=== PATIENT | female | born 1935 | race Caucasian/White ===

== ENCOUNTER → 2016-04-09 | Outpatient (CLI) | payer OTHER, BC ==
[~2016-04-09] MED LIST: ACET325T96 PO; AMLO10TA2 PO; AMOX875T PO; ASPCH81X PO; ATOR-24 PO; BISA10SU38 PR; CALC0.2510 PO; CEPH500C PO; CLC100X PO; CLON0.252 SL; DABI150C PO; DOCU100C31 PO; ESCI10TA17 PO; GFNSR600 PO; MOML PO; NTRGSL/4 UT; NUTR-977 PO; ONDA4TAB7 SL; POLY335025 PO; POTA20TA16 PO; PRLSR20 PO; RIVA1.5T PO; SENN-61 PO; SENN8.6T7 PO; SULF800T23 PO
[2016-04-09 18:11] LABS: URINE APPEARANCE CLOUDY (CLEAR); URINE BILIRUBIN NEG (NEG); URINE COLOR YELLOW; URINE EPITHELIAL CELL AUTO >30 /lpf (0-5); URINE NITRITE NEG (NEG); URINE SPECIFIC GRAVITY 1.003 (1.000-1.030); UROBILINOGEN NEG (NEG)
[2016-04-09 18:19] LABS: MANUAL MICROSCOPIC REQUIRED? NO; REVIEW REQ? YES
--- NOTE | 2016-04-13 12:26 | CODING QUERY NO DIAGNOSIS ---
TREATMENT RENDERED WITHOUT A DIAGNOSIS To promote full compliance with coding requirements relating to patient care, physician participation is requested in all cases of res counselor uncertainty. Please assist us with providing a diagnosis/symptom for the test(s) below: A diagnosis/symptom was not documented on your Order. A valid diagnosis/symptom is required to bill all insurances. Please remember that we are unable to code a diagnosis of rule out, probable, possible, questionable, or suspected. Tests that require a diagnosis: DOS 04/09/16 * Urine Culture DIAGNOSIS: Provider Signature: Date: Thank you Abigail Zamora [facility] Information Management Once completed, please kindly fax back to [phone] For questions please call [phone]
== END ==
LOC: C.LABOUTLO 16:12
PROVIDERS: ATTEND Family Medicine
DX: Z76.89 Persons encountering health services in other specified circumstances (principal)

== ENCOUNTER 2016-04-10 11:59 | Emergency (ER) | payer OTHER, BC ==
[~2016-04-10] VITALS: Ht 157.5 cm; Wt 54.0 kg
[~2016-04-10 11:59] MED LIST changes: -ACET325T96 PO; -AMLO10TA2 PO; -ASPCH81X PO; -ATOR-24 PO; -BISA10SU38 PR; -CALC0.2510 PO; -CEPH500C PO; -CLON0.252 SL; -DOCU100C31 PO; -ESCI10TA17 PO; -GFNSR600 PO; -MOML PO; -NTRGSL/4 UT; -NUTR-977 PO; -ONDA4TAB7 SL; -POLY335025 PO; -POTA20TA16 PO; -PRLSR20 PO; -RIVA1.5T PO; -SENN-61 PO; -SENN8.6T7 PO; -SULF800T23 PO
[2016-04-10 12:04] VITALS: TEMP 36.7; Ht 157.5 cm; Wt 54.0 kg
--- NOTE | 2016-04-10 12:15 | EMERGENCY ROOM VISIT NOTE ---
History Report prepared by Debbie: Beltran Peter Under the Supervision of: Dr. Hieu Lopez M.D. First contact with patient: 12:08 Chief Complaint: FALL Stated Complaint: FALL/HEMATOMA TO HEAD History of Present Illness The patient is a 80 year old female who presents to the Emergency Room with complaints of an acute fall that occurred earlier this morning. The patient notes that there is now a bump on her head but she does not have any pain. The patient did not lose consciousness. The patient does not have any chest or abdominal pain. She has never been told she has Alzheimer's or dementia. The patient is on Pradaxa. The patient resides at [facility]. The patient was in the ED yesterday for syncope and incontinence. Source of History: patient Onset: this morning Position: other (global) Quality: other (fall) Timing: other (acute) Associated Symptoms: No LOC, No abdominal pain, No chest pain, No headache Review of Systems All systems have been listed, reviewed, and are negative other than those previously mentioned. Please see Additional Medical History Sheet. Past Medical & Surgical Medical Problems: (1) Altered mental status (2) Atrial Fibrillation with rapid ventricular rate (3) Atrial fibrillation with RVR (4) Atrial fibrillation with RVR (5) Chronic ischemic heart disease (6) Chronic kidney disease stage 3 (7) Chronic otitis externa (8) Dehydration (9) Dehydration (10) Dyslipidemia (11) Fall (12) Gastroenteritis (13) Humerus head fracture (14) Hypomagnesemia (15) Local infection of wound (16) Mental status change (17) Subjective tinnitus (18) UTI (urinary tract infection) (19) Vertigo (20) Vomiting Family History Heart disease Hypertension Stroke Social History Smoking Status: Former Smoker Alcohol Use: none Drug Use: none Marital Status: Housing Status: [facility] Occupation Status: retired Current/Historical Medications Scheduled Amlodipine Besylate (Norvasc), 10 MG PO DAILY Amoxicillin & Pot Clavulanate (Augmentin 875-125 mg), 875 MG PO BID Aspirin (Aspirin Chewable), 81 MG PO BID Atorvastatin (Lipitor), 40 MG PO QD@1700 Calcitriol (Rocaltrol Cap), 0.25 MCG PO 3XWK Dabigatran Etexilate Mesylate (Pradaxa), 150 MG PO BID Docusate Sodium (Colace), 100 MG PO BID Enteral Nutrition Formula (Ensure Plus Vanilla), 1 CAN GJT TID Escitalopram (Lexapro), 10 MG PO DAILY Omeprazole (Prilosec), 20 MG PO DAILY Potassium Ext Rel (Klor-Con), 20 MEQ PO DAILY Senna (Senokot), 1 TAB PO HS Scheduled PRN Acetaminophen Tab (Tylenol), 650 MG PO Q4H PRN for Mild Pain Bisacodyl (Dulcolax), 1 SUPP TX UD PRN for Constipation Clonazepam (Clonazepam Odt), 0.25 MG SL HS PRN for Insomnia Magnesium Hydroxide (Milk Of Magnesia), 30 ML PO UD PRN for Constipation Nitroglycerin (Nitrostat), 0.4 MG UT UD PRN for Chest Pain Polyethylene Glycol 3350 (Miralax), 17 GM PO DAILY PRN for Constipation Sennosides-Docusate Sodium (Senokot S), 1 TAB PO Q24H PRN for Constipation Allergies Coded Allergies: No Known Allergies (Verified , ., 04/10/16) Physical Exam Vital Signs Date Time Temp Pulse Resp B/P Pulse Ox O2 Delivery O2 Flow Rate FiO2 04/10/16 13:41 58 17 175/74 91 04/10/16 12:04 36.7 60 167/64 96 Room Air Physical Exam GENERAL: Patient awake, alert, oriented x 3. Patient follows commands. Patient does not appear toxic. Patient is adequately hydrated and well- nourished. SKIN: No erythema, pallor, cyanosis or rash HEENT: Hematoma above the left eye, no Reza's or Raccoon signs, pupils equal, reactive to light and accommodation. Ears normal. Oral cavity and posterior pharynx appear normal. Neck: Supple, nontender without stepoff, without adenopathy, no neck vein distention. LUNGS: Clear to auscultation. No wheezes, no rales, no rhonchi. HEART: There is a 2/6 systolic murmur. ABDOMEN: Soft, nontender. EXTREMITIES: No signs of acute trauma. NEUROLOGIC: Patient is disoriented x 3 but answers most questions appropriately. Awake, alert. No neurological deficits. Medical Decision & Procedures ER Provider Diagnostic Interpretation: CT results are interpretations by the radiologist and per my review. CT HEAD WITHOUT CONTRAST (CT) CLINICAL HISTORY: Head pain status post head trauma COMPARISON STUDY: 04/09/2016 TECHNIQUE: Axial CT of the brain is performed from the vertex to the skull base. IV contrast was not administered for this examination. CT DOSE: 537.48 mGy.cm FINDINGS: No intra or extra-axial mass lesions are visualized. There is no CT evidence of acute cortical infarction. There is no evidence of midline shift. There is no acute hemorrhage. No calvarial fractures are visualized. There are patchy white matter hypodensities likely on a small vessel basis. There is an old left occipital lobe infarct. There are old cerebellar infarcts. There is left frontal scalp edema There is no evidence of pathologic ventricular dilatation. 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 No acute intracranial findings. Electronically signed by: Ace Mccormack M.D. 04/10/2016 1:12 PM Dictated Date/Time: 04/10/2016 1:08 PM ED Course 1209: Past medical records reviewed. The patient was evaluated in room C11b. A complete history and physical examination was performed. 1343: Spoke with the patient's daughter over the phone. I explained the CT findings. The patient will return to [facility]. 1350: Reevaluated the patient. I discussed today's findings with her and her daughter over the phone. They verbalized agreement of the treatment plan. She was discharged home. Medical Decision I considered multiple diagnoses including intracranial bleeding, hematoma, contusion, fall. Patient fell today and struck her head resulting in a hematoma above her left eye. The patient had no apparent loss of consciousness. She does have a history of dementia the patient was seen here yesterday. Multiple tests and imaging were performed then. The patient is on Pradaxa and therefore required a CT of her head which was felt to be normal in that there was no signs of bleed. No additional testing was performed today. I believe the patient is safe to return home. I discussed findings with the patient's daughter over the phone. Impression Primary Impression: Closed head injury Scribe Attestation The scribe's documentation has been prepared under my direction and personally reviewed by me in its entirety. I confirm that the note above accurately reflects all work, treatment, procedures, and medical decision making performed by me. Departure Information Dispostion Home / Self-Care Referrals [facility] (PCP) Forms HOME CARE DOCUMENTATION FORM, IMPORTANT VISIT INFORMATION Patient Instructions My [facility] Additional Instructions Continue all of your current medications as prescribed. Tylenol as needed for headache. Problem Qualifiers Primary Impression: Closed head injury Encounter type: initial encounter Qualified Codes: S09.90XA - Unspecified injury of head, initial encounter
--- NOTE | 2016-04-10 13:14 | DIAGNOSTIC IMAGING REPORT ---
CT HEAD WITHOUT CONTRAST (CT) CLINICAL HISTORY: Head pain status post head trauma COMPARISON STUDY: 04/09/2016 TECHNIQUE: Axial CT of the brain is performed from the vertex to the skull base. IV contrast was not administered for this examination. CT DOSE: 537.48 mGy.cm FINDINGS: No intra or extra-axial mass lesions are visualized. There is no CT evidence of acute cortical infarction. There is no evidence of midline shift. There is no acute hemorrhage. No calvarial fractures are visualized. There are patchy white matter hypodensities likely on a small vessel basis. There is an old left occipital lobe infarct. There are old cerebellar infarcts. There is left frontal scalp edema There is no evidence of pathologic ventricular dilatation. 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 No acute intracranial findings. Electronically signed by: Ace Mccormack M.D. 04/10/2016 1:12 PM Dictated Date/Time: 04/10/2016 1:08 PM
[2016-04-10 19:22] VITALS: BP 171/100; PULSE 62; O2SAT 95
[2016-09-19] MEDS ORDERED: BISA10SU38 PR (12:42)
[2016-09-19] MEDS ORDERED: POLY335025 PO (12:42)
[2016-09-19] MEDS ORDERED: SENN8.6T7 PO (12:42)
[2016-09-19] MEDS ORDERED: ATOR-24 PO (12:42)
[2016-09-19] MEDS ORDERED: ACET325T96 PO (12:42)
[2016-09-19] MEDS ORDERED: MOML PO (12:42)
[2016-09-19] MEDS ORDERED: CALC0.2510 PO (13:22)
[2016-09-19] MEDS ORDERED: ASPCH81X PO (13:27)
[2016-09-19] MEDS ORDERED: AMLO10TA2 PO (13:28)
[2016-09-19] MEDS ORDERED: CLON0.252 SL (13:31)
[2016-09-19] MEDS ORDERED: POTA20TA16 PO (13:33)
[2016-09-19] MEDS ORDERED: NTRGSL/4 UT (13:33)
== END 2016-04-10 19:23 | disposition home or self-care (01) ==
LOC: EDBD 11:59 → C.EDC 11:59
DX: S09.8XXA Other specified injuries of head, initial encounter (principal); R22.0 Localized swelling, mass and lump, head; W19.XXXA Unspecified fall, initial encounter; I48.91 Unspecified atrial fibrillation; N18.3 Chronic kidney disease, stage 3 (moderate); E78.5 Hyperlipidemia, unspecified; Z79.02 Long term (current) use of antithrombotics/antiplatelets; Z79.899 Other long term (current) drug therapy

== ENCOUNTER → 2016-05-07 | Outpatient (CLI) | payer OTHER, BC ==
[~2016-05-07] MED LIST changes: +ACET325T96 PO; +AMLO10TA2 PO; -AMOX875T PO; +ASPCH81X PO; +ATOR-24 PO; +BISA10SU38 PR; +CALC0.2510 PO; +CEPH500C PO; +CLON0.252 SL; +DOCU100C31 PO; +ESCI10TA17 PO; +GFNSR600 PO; +MOML PO; +NTRGSL/4 UT; +NUTR-977 PO; +POLY335025 PO; +POTA20TA16 PO; +PRLSR20 PO; +SENN-61 PO; +SENN8.6T7 PO
[2016-05-07 14:45] LABS: URINE APPEARANCE CLOUDY (CLEAR); URINE BILIRUBIN NEG (NEG); URINE COLOR YELLOW; URINE NITRITE POS (NEG); URINE SPECIFIC GRAVITY 1.012 (1.000-1.030); UROBILINOGEN NEG (NEG)
[2016-05-07 14:52] LABS: MANUAL MICROSCOPIC REQUIRED? NO; REVIEW REQ? NO
--- NOTE | 2016-05-14 07:22 | CODING QUERY NO DIAGNOSIS ---
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 Please assist us with providing a diagnosis/symptom for the test(s) below: A diagnosis/symptom was not documented on your Order. A valid diagnosis/symptom is required to bill all insurances. Please remember that we are unable to code a diagnosis of rule out, probable, possible, questionable, or suspected. DOS: 05/07/16 Tests that require a diagnosis: * UA CLEAN CATCH DIAGNOSIS: * URINE CULTURE CLEAN DIAGNOSIS: Provider Signature: Date: Thank you Guerline [facility] Health Information Management Once completed, please kindly fax back to [phone] For questions please call [phone]
== END ==
LOC: C.LABOUTLO 14:18
PROVIDERS: ATTEND Family Medicine
DX: R30.0 Dysuria (principal)

== ENCOUNTER → 2016-06-10 | Outpatient (CLI) | payer OTHER, BC ==
[2016-06-10 19:43] LABS: URINE APPEARANCE TURBID (CLEAR); URINE BILIRUBIN NEG (NEG); URINE COLOR YELLOW; URINE EPITHELIAL CELL AUTO >30 /lpf (0-5); URINE NITRITE NEG (NEG); URINE PH 6.5 (4.5-7.5); URINE SPECIFIC GRAVITY 1.012 (1.000-1.030); UROBILINOGEN NEG (NEG)
[2016-06-10 19:44] LABS: MANUAL MICROSCOPIC REQUIRED? NO; REVIEW REQ? YES
== END | disposition home or self-care (01) ==
LOC: C.LABOUTLO 10:32
PROVIDERS: ATTEND Family Medicine
DX: Z00.00 Encounter for general adult medical examination without abnormal findings (principal)

== ENCOUNTER 2016-09-19 18:15 | Emergency (ER) | payer OTHER, BC ==
[~2016-09-19] VITALS: Ht 157.5 cm; Wt 61.3 kg
[~2016-09-19 18:15] MED LIST changes: -CEPH500C PO; -DOCU100C31 PO; -ESCI10TA17 PO; -GFNSR600 PO; -NUTR-977 PO; -PRLSR20 PO; -SENN-61 PO
[2016-09-19 18:20] VITALS: TEMP 36.5; Ht 157.5 cm; Wt 61.3 kg
[2016-09-19] MEDS ORDERED: ACETAMINOPHEN 500 MG TAB PO STA (18:22)
--- NOTE | 2016-09-19 18:54 | DIAGNOSTIC IMAGING REPORT ---
HEAD CT NONCONTRAST CT DOSE: 601.98 mGy.cm HISTORY: Trauma fall TECHNIQUE: Multiaxial CT images of the head were performed without the use of intravenous contrast. Comparison: 04/10/2016 Findings: Old cerebellar as well as left occipital infarct. Considerable chronic small vessel change. Mild compensatory prominence of the ventricular system. No acute intracranial abnormality. No midline shift. The calvarium and skull base are intact. The ventricles and sulci are within normal limits. There is no mass, hematoma, midline shift, or acute infarct. Impression: Chronic and age-related change. No acute process. Electronically signed by: Francis Cedeno M.D. 09/19/2016 6:53 PM Dictated Date/Time: 09/19/2016 6:52 PM
--- NOTE | 2016-09-19 19:14 | EMERGENCY ROOM VISIT NOTE ---
History Report prepared by Debbie: Beltran Peter Under the Supervision of: Dr. Mathew Shanks D.O. First contact with patient: 18:17 Stated Complaint: FALL/ HEAD PAIN / [facility] History of Present Illness The patient is a 80 year old female with baseline dementia who presents to the Emergency Room after an acute fall that occurred just prior to arrival. Per EMS , the patient fell forward from a chair and hit the front of her head on the ground. The patient however states that she fell from standing up. The patient currently complains of 7/10 pain. She does not have any other complaints. She denies blood thinner use. The patient resides at [facility]. Source of History: patient, EMS Onset: just prior to arrival Position: other (global) Quality: other (fall) Timing: other (acute) Associated Symptoms: + headache Review of Systems See HPI for pertinent positives & negatives. A total of 10 systems reviewed and were otherwise negative. Past Medical & Surgical Medical Problems: (1) Altered mental status (2) Atrial Fibrillation with rapid ventricular rate (3) Atrial fibrillation with RVR (4) Atrial fibrillation with RVR (5) Chronic ischemic heart disease (6) Chronic kidney disease stage 3 (7) Chronic otitis externa (8) Dehydration (9) Dehydration (10) Dyslipidemia (11) Fall (12) Gastroenteritis (13) Humerus head fracture (14) Hypomagnesemia (15) Local infection of wound (16) Mental status change (17) Subjective tinnitus (18) UTI (urinary tract infection) (19) Vertigo (20) Vomiting Family History Heart disease Hypertension Stroke Social History Smoking Status: Unknown if Ever Smoked Alcohol Use: none Drug Use: none Marital Status: Housing Status: long term Occupation Status: retired Current/Historical Medications Scheduled Amlodipine Besylate (Norvasc), 10 MG PO DAILY Aspirin (Aspirin Chewable), 81 MG PO BID Atorvastatin (Lipitor), 40 MG PO QD@1700 Calcitriol (Rocaltrol Cap), 0.25 MCG PO 3XWK Dabigatran Etexilate Mesylate (Pradaxa), 150 MG PO BID Docusate Sodium (Colace), 100 MG PO BID Enteral Nutrition Formula (Ensure Plus Vanilla), 1 CAN GJT TID Escitalopram (Lexapro), 10 MG PO DAILY Omeprazole (Prilosec), 20 MG PO DAILY Potassium Ext Rel (Klor-Con), 20 MEQ PO DAILY Senna (Senokot), 1 TAB PO HS Scheduled PRN Acetaminophen Tab (Tylenol), 650 MG PO Q4H PRN for Mild Pain Bisacodyl (Dulcolax), 1 SUPP MD UD PRN for Constipation Clonazepam (Clonazepam Odt), 0.25 MG SL HS PRN for Insomnia Magnesium Hydroxide (Milk Of Magnesia), 30 ML PO UD PRN for Constipation Nitroglycerin (Nitrostat), 0.4 MG UT UD PRN for Chest Pain Polyethylene Glycol 3350 (Miralax), 17 GM PO DAILY PRN for Constipation Sennosides-Docusate Sodium (Senokot S), 1 TAB PO Q24H PRN for Constipation Allergies Coded Allergies: No Known Allergies (Verified , ., 04/10/16) Physical Exam Vital Signs Date Time Temp Pulse Resp B/P (MAP) Pulse Ox O2 Delivery O2 Flow Rate FiO2 09/19/16 18:20 18 98 09/19/16 18:20 36.5 65 18 145/67 98 Room Air Physical Exam CONSTITUTIONAL/VITAL SIGNS: Reviewed / noted above. GENERAL: Non-toxic in appearance. INTEGUMENTARY: Warm, dry, and [place]. HEAD: Small contusion to the right supraorbital area. EYES: without scleral icterus or trauma. ENT/OROPHARYNX: clear and moist. LYMPHADENOPATHY/NECK: Is supple without lymphadenopathy or meningismus. RESPIRATORY: Lungs clear and equal. CARDIOVASCULAR: Regular rate and rhythm. GI/ABDOMEN: Soft and nontender. No organomegaly or pulsatile mass. No rebound or guarding. Normal bowel sounds. EXTREMITIES: Warm and well perfused. BACK: No CVA tenderness. NEUROLOGICAL: Intact without focal deficits. PSYCHIATRIC: normal affect. MUSCULOSKELETAL: Normally developed with good muscle tone. Medical Decision & Procedures ER Provider Diagnostic Interpretation: Radiology results as stated below per my review and radiologist interpretation: HEAD CT NONCONTRAST CT DOSE: 601.98 mGy.cm HISTORY: Trauma fall TECHNIQUE: Multiaxial CT images of the head were performed without the use of intravenous contrast. Comparison: 04/10/2016 Findings: Old cerebellar as well as left occipital infarct. Considerable chronic small vessel change. Mild compensatory prominence of the ventricular system. No acute intracranial abnormality. No midline shift. The calvarium and skull base are intact. The ventricles and sulci are within normal limits. There is no mass, hematoma, midline shift, or acute infarct. Impression: Chronic and age-related change. No acute process. Electronically signed by: Francis Cedeno M.D. 09/19/2016 6:53 PM Dictated Date/Time: 09/19/2016 6:52 PM Medications Administered Medications (Trade) Dose Ordered Sig/Karla Route Start Time Stop Time Status Last Admin Dose Admin Acetaminophen (Tylenol Tab) 500 mg NOW STAT PO 09/19/16 18:22 09/19/16 18:23 DC 09/19/16 18:59 500 MG ED Course 1817: Previous medical records were reviewed. The patient was evaluated in room B5. A complete history and physical examination was performed. 1821: Tylenol 500 mg PO. 1914: Reassessed the patient. Discussed the discharge instructions. She will be discharged. Medical Decision Differential includes close head injury, intracranial bleed, facial trauma, cervical spine trauma, chest and thoracic trauma, abdominal and intra-abdominal trauma, spine neurologic trauma, extremity trauma. Patient was found to have a slightly elevated blood pressure due to circumstances. I do not believe that the patient requires hypertension monitoring. Medication Reconciliation: I attest that I have personally reviewed the patient' s current medication list. This is a 80-year-old female who presents to the ED with a chief complaint of a fall. Her exam reveals a contusion to the right supraorbital region. She denies any other injuries. Exam does not suggest any other injuries. CT scan the brain did not show acute injury. She is discharged. Impression Primary Impression: Fall Additional Impression: Contusion of face Scribe Attestation The scribe's documentation has been prepared under my direction and personally reviewed by me in its entirety. I confirm that the note above accurately reflects all work, treatment, procedures, and medical decision making performed by me. Departure Information Dispostion Home / Self-Care Referrals [facility] (PCP) Forms HOME CARE DOCUMENTATION FORM, IMPORTANT VISIT INFORMATION Patient Instructions My [facility] Additional Instructions Follow-up with your doctor for further care and evaluation in 1-2 days. Return to the emergency department for worsening or new symptoms or any concerns. You have been examined and treated today on an emergency basis only. This is not a substitute for, or an effort to provide, complete comprehensive medical care. It is impossible to recognize and treat all injuries or illnesses in a single emergency department visit. It is therefore important that you follow up closely with your doctor. Call as soon as possible for an appointment. Problem Qualifiers
[2016-09-19] MEDS ORDERED: SENN-61 PO (19:18)
[2016-09-19] MEDS ORDERED: GFNSR600 PO (19:45)
[2016-09-19] MEDS ORDERED: DOCU100C31 PO (19:45)
[2016-09-19 19:57] VITALS: BP 165/69; PULSE 57; O2SAT 98
[2016-09-19] MEDS ORDERED: NUTR-977 PO (22:14)
[2016-09-19] MEDS ORDERED: PRLSR20 PO (22:14)
[2016-09-19] MEDS ORDERED: ESCI10TA17 PO (22:14)
== END 2016-09-19 20:26 | disposition home or self-care (01) ==
LOC: EDBD 18:15 → C.EDB 18:16
DX: S00.83XA Contusion of other part of head, initial encounter (principal); W07.XXXA Fall from chair, initial encounter; W22.8XXA Striking against or struck by other objects, initial encounter; I48.91 Unspecified atrial fibrillation; N18.3 Chronic kidney disease, stage 3 (moderate); E78.5 Hyperlipidemia, unspecified; Z91.81 History of falling; Z87.440 Personal history of urinary (tract) infections; Z79.01 Long term (current) use of anticoagulants; Z79.82 Long term (current) use of aspirin; Z79.899 Other long term (current) drug therapy

== ENCOUNTER 2016-10-02 02:46 | Emergency (ER) | payer OTHER, BC ==
[~2016-10-02] VITALS: Ht 157.5 cm; Wt 61.2 kg
[~2016-10-02 02:46] MED LIST changes: -CLC100X PO; -DABI150C PO; +DOCU100C31 PO; +ESCI10TA17 PO; +GFNSR600 PO; +NUTR-977 PO; +PRLSR20 PO; +SENN-61 PO
[2016-10-02] MEDS ORDERED: SODIUM CHLORIDE 0.9% 500ML 500 ML IV STA (02:52)
[2016-10-02 02:54] VITALS: O2SAT 98
[2016-10-02 02:55] VITALS: TEMP 37.1; Ht 157.5 cm; Wt 61.2 kg
--- NOTE | 2016-10-02 02:57 | EMERGENCY ROOM VISIT NOTE ---
History Report prepared by Debbie: Juwan Chamberlain Under the Supervision of: Dr. Brian Romero M.D. First contact with patient: 02:48 Stated Complaint: ABDOMINAL PAIN/CHEST PAIN History of Present Illness The patient is a 80 year old female who presents to the Emergency Room with complaints of abdominal pain that began 12 hours ago. This HPI is limited secondary to dementia. She was seen here 2 weeks ago for a fall. She is currently not experiencing any other pain. Source of History: patient, nursing staff History Limited By: dementia Onset: 12 hours ago Position: abdomen Symptom Intensity: moderate Quality: ache Timing: constant Associated Symptoms: No chest pain Review of Systems Limited secondary to dementia. Past Medical & Surgical Medical Problems: (1) Altered mental status (2) Atrial Fibrillation with rapid ventricular rate (3) Atrial fibrillation with RVR (4) Atrial fibrillation with RVR (5) Chronic ischemic heart disease (6) Chronic kidney disease stage 3 (7) Chronic otitis externa (8) Dehydration (9) Dehydration (10) Dyslipidemia (11) Fall (12) Gastroenteritis (13) Humerus head fracture (14) Hypomagnesemia (15) Local infection of wound (16) Mental status change (17) Subjective tinnitus (18) UTI (urinary tract infection) (19) Vertigo (20) Vomiting Family History Heart disease Hypertension Stroke Social History Smoking Status: Unknown if Ever Smoked Alcohol Use: none Drug Use: none Marital Status: Housing Status: intermediate Occupation Status: retired Current/Historical Medications Scheduled Amlodipine Besylate (Norvasc), 10 MG PO DAILY Aspirin (Aspirin Chewable), 81 MG PO BID Atorvastatin (Lipitor), 40 MG PO QD@1700 Calcitriol (Rocaltrol Cap), 0.25 MCG PO 3XWK Cephalexin Monohydrate (Keflex), 500 MG PO TID Clonazepam (Clonazepam Odt), 0.25 MG SL HS Docusate Sodium (Docusate Sodium), 100 MG PO BID Enteral Nutrition Formula (Ensure Plus Vanilla), 1 CAN PO TID Escitalopram (Lexapro), 10 MG PO DAILY Omeprazole (Prilosec), 20 MG PO DAILY Potassium Ext Rel (Klor-Con), 20 MEQ PO DAILY Senna (Senokot), 8.6 MG PO HS Scheduled PRN Acetaminophen Tab (Tylenol), 650 MG PO Q4H PRN for Mild Pain Bisacodyl (Dulcolax), 1 SUPP NH UD PRN for Constipation Guaifenesin Ext Rel (Mucinex Ext Rel), 600 MG PO Q12 PRN for CONGESTION Magnesium Hydroxide (Milk Of Magnesia), 30 ML PO UD PRN for Constipation Nitroglycerin (Nitrostat), 0.4 MG UT UD PRN for Chest Pain Polyethylene Glycol 3350 (Miralax), 17 GM PO DAILY PRN for Constipation Sennosides-Docusate Sodium (Senokot S), 1 TAB PO Q24H PRN for Constipation Allergies Coded Allergies: No Known Allergies (Verified , ., 04/10/16) Physical Exam Vital Signs Date Time Temp Pulse Resp B/P (MAP) Pulse Ox O2 Delivery O2 Flow Rate FiO2 10/02/16 06:02 65 20 174/69 95 Room Air 10/02/16 05:20 72 18 153/87 94 Room Air 10/02/16 04:03 67 18 164/68 97 Room Air 10/02/16 02:55 37.1 66 20 158/84 98 Room Air 10/02/16 02:54 98 Room Air Physical Exam GENERAL: Patient is well appearing and in no acute distress. Pleasantly demented. HEENT: No acute trauma, normocephalic atraumatic, mucous membranes moist, no nasal congestion, no scleral icterus. NECK: No stridor, no adenopathy, no meningismus, trachea is midline. LUNGS: No dyspnea. Clear to auscultation and equal bilaterally. No wheeze, no rhonchi. HEART: Regular rate and rhythm. No murmurs, rubs, gallops appreciated. ABDOMEN: Soft, tenderness to palpation of the periumbilical region, bowel sounds positive, no masses appreciated, no peritonitis. BACK: No midline tenderness, no CVA tenderness : Moderate firm nontender nonfluctuant mass to the right perineum. No erythema. Clear urine within the vaginal vault. Nurse Yi at Bedside. EXTREMITIES: Normal motion all extremities, no cyanosis, no edema. NEUROLOGIC: Alert and oriented, no acute motor or sensory deficits, no focal weakness, cranial nerves grossly intact. SKIN: Bruise of the right eyebrow. Medical Decision & Procedures ER Provider Diagnostic Interpretation: Radiology results and stated below per my review and radiologist interpretation: CT ABDOMEN & PELVIS: Axial images only. Large hiatal hernia. Colonic diverticula without diverticulitis. Hysterectomy. Thickening and hyperemia of the vaginal cuff as well as the fluid. Infection not excluded. Complex Bartholin gland cyst vs. solid lesion in the right perineum measuring 4 cm. No radiodense gallstones. Cardiomegaly. Radiologist: Soha Chou M.D. Laboratory Results 10/02/16 03:48 Red Blood Count 3.09, Mean Corpuscular Volume 91.6, Mean Corpuscular Hemoglobin 31.1, Mean Corpuscular Hemoglobin Concent 33.9, Mean Platelet Volume 10.2, Neutrophils (%) (Auto) 59.1, Lymphocytes (%) (Auto) 28.1, Monocytes (%) (Auto) 8.4, Eosinophils (%) (Auto) 3.9, Basophils (%) (Auto) 0.4, Neutrophils # (Auto) 3.98, Lymphocytes # (Auto) 1.90, Monocytes # (Auto) 0.57, Eosinophils # (Auto) 0.26, Basophils # (Auto) 0.03 10/02/16 03:48 Test 10/02/16 03:18 10/02/16 03:48 10/02/16 04:25 Bedside Hemoglobin 11.6 g/dl (12.0-16.0) Bedside Hematocrit 34 % (37-47) Bedside Sodium 139 mEq/L (135-144) Bedside Potassium 4.9 mEq/L (3.3-5.0) Bedside Chloride 107 mEq/L (101-112) Bedside Total CO2 24 mEq/l (24-31) Bedside Blood Urea Nitrogen 28 mg/dl (7-18) Bedside Creatinine 1.4 mg/dl (0.6-1.3) Bedside Glucose (other) 118 mg/dl (70-99) Bedside Ionized Calcium (Meet) 1.13 mmol/l (1.12-1.32) White Blood Count 6.75 K/uL (4.8-10.8) Red Blood Count 3.09 M/uL (4.2-5.4) Hemoglobin 9.6 g/dL (12.0-16.0) Hematocrit 28.3 % (37-47) Mean Corpuscular Volume 91.6 fL (80-100) Mean Corpuscular Hemoglobin 31.1 pg (25-34) Mean Corpuscular Hemoglobin Concent 33.9 g/dl (32-36) Platelet Count 224 K/uL (130-400) Mean Platelet Volume 10.2 fL (7.4-10.4) Neutrophils (%) (Auto) 59.1 % Lymphocytes (%) (Auto) 28.1 % Monocytes (%) (Auto) 8.4 % Eosinophils (%) (Auto) 3.9 % Basophils (%) (Auto) 0.4 % Neutrophils # (Auto) 3.98 K/uL (1.4-6.5) Lymphocytes # (Auto) 1.90 K/uL (1.2-3.4) Monocytes # (Auto) 0.57 K/uL (0.11-0.59) Eosinophils # (Auto) 0.26 K/uL (0-0.5) Basophils # (Auto) 0.03 K/uL (0-0.2) RDW Standard Deviation 46.0 fL (36.4-46.3) RDW Coefficient of Variation 13.7 % (11.5-14.5) Immature Granulocyte % (Auto) 0.1 % Immature Granulocyte # (Auto) 0.01 K/uL (0.00-0.02) Anion Gap 4.0 mmol/L (3-11) Est Creatinine Clear Calc Drug Dose 28.5 ml/min Estimated GFR () 41.6 Estimated GFR (Non- 35.9 BUN/Creatinine Ratio 14.5 (10-20) Calcium Level 8.3 mg/dl (8.5-10.1) Total Bilirubin 0.1 mg/dl (0.2-1) Direct Bilirubin < 0.1 mg/dl (0-0.2) Aspartate Amino Transf (AST/SGOT) 18 U/L (15-37) Alanine Aminotransferase (ALT/SGPT) 19 U/L (12-78) Alkaline Phosphatase 157 U/L (45-117) Troponin I < 0.015 ng/ml (0-0.045) Total Protein 6.1 gm/dl (6.4-8.2) Albumin 2.8 gm/dl (3.4-5.0) Lipase 137 U/L (73-393) Urine Color YELLOW Urine Appearance TURBID (CLEAR) Urine pH 8.5 (4.5-7.5) Urine Specific [place] 1.022 (1.000-1.030) Urine Protein TRACE (NEG) Urine Glucose (UA) NEG (NEG) Urine Ketones NEG (NEG) Urine Occult Blood NEG (NEG) Urine Nitrite NEG (NEG) Urine Bilirubin NEG (NEG) Urine Urobilinogen NEG (NEG) Urine Leukocyte Esterase SMALL (NEG) Urine WBC (Auto) 5-10 /hpf (0-5) Urine RBC (Auto) 0-4 /hpf (0-4) Urine Hyaline Casts (Auto) 1-5 /lpf (0-5) Urine Epithelial Cells (Auto) >30 /lpf (0-5) Urine Bacteria (Auto) 4+ (NEG) Urine Crystals AMORPHOUS SEDIMENT (NONE Laboratory results as reviewed by me. Medications Administered Medications (Trade) Dose Ordered Sig/Karla Route Start Time Stop Time Status Last Admin Dose Admin Sodium Chloride 500 ml @ 999 mls/hr Q31M STAT IV 10/02/16 02:52 10/02/16 03:22 DC 10/02/16 02:52 999 MLS/HR Cephalexin Monohydrate (Keflex Cap) 500 mg NOW ONCE PO 10/02/16 05:45 10/02/16 05:46 DC 10/02/16 05:59 500 MG ECG Indication: abdominal pain Rate (beats per minute): 68 Rhythm: normal sinus Findings: PAC, no acute ischemic change, other (Flattened T-wave) Comparison ECG Date: Mar 2016 Change: no significant change ED Course 0248: The patient was evaluated in room A3. A complete history and physical exam was performed. 0252: Ordered Sodium Chloride 500 ml @ 999 mls/hr IV 0409: The patient is no longer experiencing pain. She feels good. []: Reevaluated the patient. Discussed results and discharge instructions: She verbalized understanding and agreement. The patient is ready for discharge. Medical Decision Differential: Appendicitis, Diverticulitis, PUD/Gastritis, Biliary Pathology, UTI, Pyelonephritis, Renal Colic, Bowel Obstruction, Aortic Pathology, Acute Coronary Syndrome, amongst other pathologies entertained. Medication Reconciliation: I attest that I have personally reviewed the patient 's current medication list. Blood pressure screening: Patient was found to have normal blood pressure on screening and does not require follow-up. 80 yr old female arrives with vague jostin-umbilically pain that resolved while here. UTI by straight cath. CT with mass right perineum that is noted on exam. Does not appear to be infected. Fluid in vagina may have just been urine which seems to come out on external vaginal examination. She is not septic and wishes to go home. I feel she can have this worked up as outpatient. Stable and in no distress at discharge to intermediate. Impression Primary Impression: UTI (urinary tract infection) Additional Impressions: Perineal mass in female Abnormal vaginal fluids Scribe Attestation The scribe's documentation has been prepared under my direction and personally reviewed by me in its entirety. I confirm that the note above accurately reflects all work, treatment, procedures, and medical decision making performed by me. Departure Information Dispostion Home / Self-Care Prescriptions Cephalexin Monohydrate (Keflex) 500 Mg Cap 500 MG PO TID for 5 Days, #15 CAP Prov: Brian Romero M.D. 10/02/16 Referrals [facility] (PCP) Store Worker Forms HOME CARE DOCUMENTATION FORM, IMPORTANT VISIT INFORMATION Additional Instructions Urinalysis reveals urinary tract infection which should be treated with abx ( Keflex Rx written) and she should have repeat urinalysis done in 1 week for test of cure. CT Scanning of abdomen revealed 4 cm mass right perineum which can be noted on exam. Also is noted abnormal fluid within vaginal. She should be evaluate further by Store Worker as outpatient. Monitor for worsening symptoms, fevers, vomiting, altered mental status or other concerns. Problem Qualifiers
[2016-10-02] MEDS ORDERED: OPTIRAY 320 IV PRN (03:30)
[2016-10-02 03:31] LABS: ISTAT CREATININE 1.4 mg/dl (0.6-1.3); ISTAT HEMOGLOBIN 11.6 g/dl (12.0-16.0); ISTAT IONIZED CALCIUM 1.13 mmol/l (1.12-1.32)
[2016-10-02 03:58] LABS: BASO % 0.4 %; BASO ABS # 0.03 K/uL (0-0.2); COMPLETE YES; EOS % 3.9 %; HEMATOCRIT 28.3 % (37-47); IG% 0.1 %; LYMPH % 28.1 %; MEAN CELL VOLUME 91.6 fL (80-100); MEAN CORPUSCULAR HEMOGLOBIN 31.1 pg (25-34); MEAN CORPUSCULAR HGB CONC 33.9 g/dl (32-36); MEAN PLATELET VOLUME 10.2 fL (7.4-10.4); MONO % 8.4 %; NEUT % 59.1 %; PLATELET COUNT 224 K/uL (130-400); RED BLOOD COUNT 3.09 M/uL (4.2-5.4); WHITE BLOOD COUNT 6.75 K/uL (4.8-10.8)
[2016-10-02 04:17] LABS: ALT/SGPT 19 U/L (12-78); AST/SGOT 18 U/L (15-37); BLOOD UREA NITROGEN 20 mg/dl (7-18); BUN/CREATININE RATIO 14.5 (10-20); CALCIUM 8.3 mg/dl (8.5-10.1); CARBON DIOXIDE 27 mmol/L (21-32); CHLORIDE 110 mmol/L (98-107); GLUCOSE 90 mg/dl (70-99); POTASSIUM 3.8 mmol/L (3.5-5.1); SODIUM 141 mmol/L (136-145)
[2016-10-02 04:22] LABS: ALKALINE PHOSPHATASE 157 U/L (45-117)
[2016-10-02 04:52] LABS: URINE APPEARANCE TURBID (CLEAR); URINE BILIRUBIN NEG (NEG); URINE COLOR YELLOW; URINE EPITHELIAL CELL AUTO >30 /lpf (0-5); URINE NITRITE NEG (NEG); URINE PH 8.5 (4.5-7.5); URINE SPECIFIC GRAVITY 1.022 (1.000-1.030); UROBILINOGEN NEG (NEG); ZZURINE CULT IF INDIC CATH YES
[2016-10-02 05:33] LABS: MANUAL MICROSCOPIC REQUIRED? NO; REVIEW REQ? YES; SULFASALICYLIC ACID POS (NEG)
[2016-10-02] MEDS ORDERED: CEPH500C PO (05:44)
[2016-10-02] MEDS ORDERED: CEPHALEXIN MONOHYDRATE 250 MG CAP PO ONE (05:45)
[2016-10-02 07:18] VITALS: BP 183/83; PULSE 56; O2SAT 97
--- NOTE | 2016-10-02 07:43 | DIAGNOSTIC IMAGING REPORT ---
CT ABD/PELVIS IV CONTRAST ONLY CLINICAL HISTORY: Periumbilical abdominal pain COMPARISON STUDY: 03/10/2014 TECHNIQUE: Following the IV administration of 94 mL of Optiray-320, CT scan of the abdomen and pelvis was performed from the lung bases to the proximal femurs. Images are reviewed in the axial, sagittal, and coronal planes. IV contrast was administered without complication. CT DOSE: 446.69 mGy.cm FINDINGS: Lower chest: There is a moderate hiatal hernia. Liver: The contrast-enhanced liver is normal in size, contour, and attenuation. There is no intrahepatic biliary ductal dilatation. The hepatic veins and portal veins are patent. Gallbladder: Unremarkable. Spleen: Normal in size and attenuation. Pancreas: Unremarkable. Adrenal glands: Unremarkable. Kidneys: There are areas of cortical scarring within the right kidney. There are subcentimeter renal hypodensities, likely representing cysts Bowel: There are no transition zones indicate bowel obstruction. By history the appendix is surgically absent. There is no acute diverticulitis. Peritoneum: There is no intraperitoneal free air or abdominal ascites. Vasculature: The abdominal aorta is normal in course and caliber. Adenopathy: None. Pelvic viscera: There is prominent fluid within the vagina. There is a 4 cm right perineal mass. This could represent either a solid nodule or complex Bartholin's gland cyst. Correlation with physical examination is recommended. This was not visualized the prior study. Skeletal structures: No destructive osseous lesions are seen. IMPRESSION: 1. Hiatal hernia 2. No evidence of bowel obstruction. No evidence of free air 3. Diverticulosis. No evidence of acute diverticulitis 4. Vaginal thickening and fluid. Clinical correlation is advocated 5. 4 cm right perineal/para labial mass. Correlation with physical examination is recommended Electronically signed by: Ace Mccormack M.D. 10/02/2016 7:42 AM Dictated Date/Time: 10/02/2016 7:34 AM
--- NOTE | 2016-10-04 11:55 | Pharmacy Progress Note ---
ED Pharmacist Culture FollowUp Date of Service: Oct 04, 2016. Patient was sent home with a prescription for Keflex 500mg PO TID, which should cover the alpha-hemolytic strep (likely viridans strep) growing from the patient 's URINE culture. No action required.
== END 2016-10-02 07:19 | disposition home or self-care (01) ==
LOC: EDBD 02:46 → C.EDA 02:46
DX: N39.0 Urinary tract infection, site not specified (principal); R22.2 Localized swelling, mass and lump, trunk; F03.90 Unspecified dementia, unspecified severity, without behavioral disturbance, psychotic disturbance, mood disturbance, and anxiety; I48.91 Unspecified atrial fibrillation; I25.9 Chronic ischemic heart disease, unspecified; E78.5 Hyperlipidemia, unspecified; E83.42 Hypomagnesemia; Z87.440 Personal history of urinary (tract) infections; Z82.49 Family history of ischemic heart disease and other diseases of the circulatory system; Z79.82 Long term (current) use of aspirin; Z79.899 Other long term (current) drug therapy

== ENCOUNTER → 2016-12-29 | Outpatient (CLI) | payer OTHER, BC ==
[2016-12-30 09:01] LABS: URINE APPEARANCE CLOUDY (CLEAR); URINE BILIRUBIN NEG (NEG); URINE COLOR YELLOW; URINE EPITHELIAL CELL AUTO >30 /lpf (0-5); URINE NITRITE NEG (NEG); URINE PH 6.5 (4.5-7.5); URINE SPECIFIC GRAVITY 1.013 (1.000-1.030); UROBILINOGEN NEG (NEG); ZZUR CULT IF INDIC CLEAN CATCH YES
[2016-12-30 09:03] LABS: MANUAL MICROSCOPIC REQUIRED? NO; REVIEW REQ? YES
== END ==
LOC: C.LABOUTLO 12-28 07:57
PROVIDERS: ATTEND Family Medicine
DX: Z01.89 Encounter for other specified special examinations (principal)

== ENCOUNTER → 2017-02-05 | Outpatient (CLI) | payer OTHER, BC ==
[2017-02-05 12:52] LABS: URINE APPEARANCE CLOUDY (CLEAR); URINE BILIRUBIN NEG (NEG); URINE COLOR YELLOW; URINE EPITHELIAL CELL AUTO >30 /lpf (0-5); URINE NITRITE POS (NEG); URINE SPECIFIC GRAVITY 1.012 (1.000-1.030); UROBILINOGEN NEG (NEG)
[2017-02-05 13:01] LABS: MANUAL MICROSCOPIC REQUIRED? NO; REVIEW REQ? NO
== END | disposition home or self-care (01) ==
LOC: C.LAB 12:38
PROVIDERS: ATTEND Family Medicine
DX: R82.90 Unspecified abnormal findings in urine (principal); R45.1 Restlessness and agitation

== ENCOUNTER 2017-04-23 23:19 | Emergency (ER) | payer OTHER, BC ==
[~2017-04-23] VITALS: Ht 157.5 cm; Wt 55.2 kg
[2017-04-23 23:23] VITALS: TEMP 36.5; Ht 157.5 cm; Wt 55.2 kg
--- NOTE | 2017-04-23 23:55 | EMERGENCY ROOM VISIT NOTE ---
History Report prepared by Debbie: Ana Medellin Under the Supervision of: Dr. Jane Gómez D.O. 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 The patient currently lives at [facility] and states she tripped on her feet. She hit her head on the floor but denies any LOC, dizziness, pain in her head, neck, abdomen, legs, wrists, and elbows. However, she does have a little bit of pain in her back but says that it is resolved. Additionally, the patient states her urine has been very dark lately. 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 A total of 10 systems reviewed and were otherwise negative. Past Medical & Surgical Medical Problems: (1) Altered mental status (2) Atrial Fibrillation with rapid ventricular rate (3) Atrial fibrillation with RVR (4) Atrial fibrillation with RVR (5) Chronic ischemic heart disease (6) Chronic kidney disease stage 3 (7) Chronic otitis externa (8) Dehydration (9) Dehydration (10) Dyslipidemia (11) Fall (12) Gastroenteritis (13) Humerus head fracture (14) Hypomagnesemia (15) Local infection of wound (16) Mental status change (17) Subjective tinnitus (18) UTI (urinary tract infection) (19) Vertigo (20) Vomiting Family History Heart disease Hypertension Stroke Social History Smoking Status: Former Smoker Alcohol Use: none Drug Use: none Marital Status: Housing Status: residential Occupation Status: retired Current/Historical Medications Scheduled Amlodipine Besylate (Norvasc), 10 MG PO DAILY Aspirin (Aspirin Chewable), 81 MG PO BID Atorvastatin (Lipitor), 40 MG PO QD@1700 Calcitriol (Rocaltrol Cap), 0.25 MCG PO 3XWK Ciprofloxacin Hcl (Cipro), 500 MG PO BID Clonazepam (Clonazepam Odt), 0.25 MG SL HS Docusate Sodium (Docusate Sodium), 100 MG PO BID Enteral Nutrition Formula (Ensure Plus Vanilla), 1 CAN PO TID Escitalopram (Lexapro), 10 MG PO DAILY Omeprazole (Prilosec), 20 MG PO DAILY Potassium Ext Rel (Klor-Con), 20 MEQ PO DAILY Senna (Senokot), 8.6 MG PO HS Scheduled PRN Acetaminophen Tab (Tylenol), 650 MG PO Q4H PRN for Mild Pain Bisacodyl (Dulcolax), 1 SUPP AR Q24H PRN for Constipation Guaifenesin Ext Rel (Mucinex Ext Rel), 600 MG PO Q12 PRN for CONGESTION Magnesium Hydroxide (Milk Of Magnesia), 30 ML PO DAILY PRN for Constipation Nitroglycerin (Nitrostat), 0.4 MG UT UD PRN for Chest Pain Polyethylene Glycol 3350 (Miralax), 17 GM PO DAILY PRN for Constipation Sennosides-Docusate Sodium (Senokot S), 1 TAB PO Q24H PRN for Constipation Allergies Coded Allergies: No Known Allergies (Verified , ., 04/24/17) Physical Exam Vital Signs Date Time Temp Pulse Resp B/P (MAP) Pulse Ox O2 Delivery O2 Flow Rate FiO2 04/24/17 06:10 55 151/58 98 04/24/17 03:12 56 157/57 95 Room Air 04/24/17 01:11 52 16 154/74 99 Room Air 04/23/17 23:23 36.5 53 16 154/72 99 Room Air Physical Exam HEENT: Head - normocephalic and atraumatic. Pupils are equal, round, and reactive to light. Extraocular eye muscles are intact and sclera are anicteric. Ears - bilaterally patent canals with no evidence of hemotympanum. Nose - moist nasal mucosa without evidence of trauma or discharge. Mouth - moist buccal mucosa with no trauma to the teeth or signs of malocclusion. Neck: The neck is supple and there is no pain to palpation over the posterior cervical spine and no obvious step-offs or deformities. There is no JVD or tracheal deviation. Chest: There are no signs of deformities, contusions or abrasions to the chest wall. There is no obvious crepitus or paradoxical chest rise. Heart: Regular, rate, and rhythm. There is a normal S1 and S2 with no murmurs, clicks, or gallops appreciated. Lungs: Clear to auscultation bilaterally with no wheezes, rales, or rhonchi. Abdomen: Soft, completely nontender, nondistended, with good bowel sounds. There is no sign of trauma such as contusions, abrasions or penetrations. There are no palpable pulsatile masses or hepatosplenomegaly. There is no guarding, rigidity, or rebound noted. Pelvis: Stable to rock and compression. Extremities: No obvious trauma, deformities, contusions, or edema. There are easily palpable peripheral pulses. Neuro: The patient is awake and alert and easily able to follow commands. Muscle strength is 5 out of 5 in all 4 extremities. Otherwise, neuro exam is unremarkable. Back: The entire thoracic, lumbar, and sacral spine were palpated. There are no obvious step-offs or deformities noted. There are no obvious signs of trauma such as contusions abrasions penetrations noted to the back. Medical Decision & Procedures Laboratory Results Test 04/24/17 01:10 Urine Color YELLOW Urine Appearance CLOUDY (CLEAR) Urine pH 6.5 (4.5-7.5) Urine Specific [place] 1.017 (1.000-1.030) Urine Protein 2+ (NEG) Urine Glucose (UA) NEG (NEG) Urine Ketones TRACE (NEG) Urine Occult Blood NEG (NEG) Urine Nitrite POS (NEG) Urine Bilirubin NEG (NEG) Urine Urobilinogen NEG (NEG) Urine Leukocyte Esterase SMALL (NEG) Urine WBC (Auto) 1-5 /hpf (0-5) Urine RBC (Auto) 0-4 /hpf (0-4) Urine Hyaline Casts (Auto) 1-5 /lpf (0-5) Urine Epithelial Cells (Auto) 10-20 /lpf (0-5) Urine Bacteria (Auto) 4+ (NEG) Urine Yeast (Auto) (NONE PRSENT) Laboratory results per my review. Medications Administered Medications (Trade) Dose Ordered Sig/Karla Route Start Time Stop Time Status Last Admin Dose Admin Ciprofloxacin (Cipro Tab) 500 mg NOW STAT PO 04/24/17 01:35 04/24/17 01:37 DC 04/24/17 01:44 500 MG Procedure Cipro Oral ED Course 2349: Past medical records reviewed. The patient was evaluated in room C8. A complete history and physical exam was performed. 0129: I revaluated the patient at this time. She feels fine, has no pain from her fall, and nursing had to catheterize her for urine. I also reviewed previous urine cultures and she has had E.coli and klebsiella. 0135: Cipro Oral 500 mg 0140: I reevaluated the patient at this time. She feels good and appears content. 0144: Upon reevaluation, the patient appeared well. I discussed findings and results with her. She verbalized agreement of the treatment plan. She was discharged home. Medical Decision The patient is a 81 year old female who presents to the ED with complaints of a fall. Differential diagnosis includes mechanical fall, closed head injury, UTI, C spine injury, and back injury. Lab results show trace ketones, positive nitrite, small leukocyte esterase, 4+ bacteria, 1 to 5 white blood cells. This is a 81-year-old female patient from [facility] [employer] who tripped and fell. She did strike the top of her head but did not loose consciousness. She denies any head or neck pain at this time. Physical exam, there was a strong smell of urine. In reviewing her records, it seems that she has a long history of UTIs. A urine was obtained and appears to be infected. This will be sent for culture. In the meantime, she'll be started on oral Cipro. The patient remained here in the ER for some time waiting for transportation. She had no further complaints of pain from the fall. Medication Reconcilliation Current Medication List: was personally reviewed by me Blood Pressure Screening Patient's blood pressure: Normal blood pressure Impression Primary Impression: UTI (urinary tract infection) Additional Impression: Fall Scribe Attestation The scribe's documentation has been prepared under my direction and personally reviewed by me in its entirety. I confirm that the note above accurately reflects all work, treatment, procedures, and medical decision making performed by me. Departure Information Dispostion Home / Self-Care Prescriptions Ciprofloxacin Hcl (CIPRO) 500 Mg Tab 500 MG PO BID for 10 Days, #20 TAB Prov: Jane Gómez D.O. 04/24/17 [facility] Forms HOME CARE DOCUMENTATION FORM, IMPORTANT VISIT INFORMATION Patient Instructions My [facility] Additional Instructions Rest. Take Cipro twice a day for next 10 days Return to the ER for any worsening symptoms Problem Qualifiers Primary Impression: UTI (urinary tract infection) Urinary tract infection type: acute cystitis Hematuria presence: without hematuria Qualified Codes: N30.00 - Acute cystitis without hematuria Additional Impression: Fall Encounter type: initial encounter Qualified Codes: W19.XXXA - Unspecified fall, initial encounter
[2017-04-24] MEDS ORDERED: CIPROFLOXACIN 500 MG TAB PO STA (01:35)
[2017-04-24] MEDS ORDERED: CIPR1TAB10 PO (03:22)
[2017-04-24 06:10] VITALS: BP 151/58; PULSE 55; O2SAT 98
--- NOTE | 2017-04-26 11:48 | Pharmacy Progress Note ---
ED Pharmacist Culture FollowUp Date of Service: Apr 26, 2017. Patient was sent home with a prescription for ciprofloxacin 500 mg BID x 10 days , which should cover the Alpha Strep. Not enterococcus/lactobacillus growing from the patient's urine culture.
== END 2017-04-24 06:11 | disposition home or self-care (01) ==
LOC: EDBD 23:21 → C.EDC 23:22 → C.EDA 04-24 06:11
DX: R82.99 Other abnormal findings in urine (principal); R82.4 Acetonuria; W01.198A Fall on same level from slipping, tripping and stumbling with subsequent striking against other object, initial encounter; N18.3 Chronic kidney disease, stage 3 (moderate); I48.0 Paroxysmal atrial fibrillation; Z87.81 Personal history of (healed) traumatic fracture; Z87.891 Personal history of nicotine dependence; Z79.82 Long term (current) use of aspirin; Z82.49 Family history of ischemic heart disease and other diseases of the circulatory system; Z82.3 Family history of stroke

== ENCOUNTER 2017-05-17 09:19 | Emergency (ER) | payer OTHER, BC ==
[~2017-05-17 09:19] MED LIST changes: +ACET-1693 PO; -ACET325T96 PO
--- NOTE | 2017-05-17 10:27 | DIAGNOSTIC IMAGING REPORT ---
CT HEAD WITHOUT CONTRAST (CT) CLINICAL HISTORY: Head pain status post trauma. Dementia. COMPARISON STUDY: 09/19/2016 TECHNIQUE: Axial CT of the brain is performed from the vertex to the skull base. IV contrast was not administered for this examination. A dose lowering technique was utilized adhering to the principles of ALARA. CT DOSE: 729.78 mGycm FINDINGS: No intra or extra-axial mass lesions are visualized. There is no CT evidence of acute cortical infarction. There is no evidence of midline shift. There is no acute hemorrhage. No calvarial fractures are visualized. There are patchy white matter hypodensities likely on a small vessel basis. 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 There is stable mild ventricular dilatation likely secondary to volume loss There is no evidence of acute sinusitis IMPRESSION: No acute intracranial findings Electronically signed by: Ace Mccormack M.D. 05/17/2017 10:26 AM Dictated Date/Time: 05/17/2017 10:21 AM
--- NOTE | 2017-05-17 10:31 | DIAGNOSTIC IMAGING REPORT ---
CERVICAL SPINE CT CT DOSE: 472.13 mGycm HISTORY: Neck pain. fall TECHNIQUE: Multiaxial CT images of the cervical spine were performed and reformatted in the sagittal and coronal plane without the use of contrast. A dose lowering technique was utilized adhering to the principles of ALARA. COMPARISON: None. FINDINGS: No fractures. No subluxation. Prevertebral soft tissues and the C1-C2 interval are intact. No pneumothorax. Old infarcts within the left occipital lobe and cerebellar hemispheres. Moderate to space narrowing at C4-C5 and C5-C6. Mild disc space narrowing at C2-C3. IMPRESSION: No fractures within the cervical spine. Electronically signed by: Reji Duvall M.D. 05/17/2017 10:30 AM Dictated Date/Time: 05/17/2017 10:25 AM
--- NOTE | 2017-05-17 11:18 | DIAGNOSTIC IMAGING REPORT ---
L KNEE 3 VIEWS CLINICAL HISTORY: Left knee pain status post trauma COMPARISON: None. DISCUSSION: The bones are osteopenic. No fractures or dislocations are visualized. IMPRESSION: No fractures or dislocations identified. Electronically signed by: Ace Mccormack M.D. 05/17/2017 11:17 AM Dictated Date/Time: 05/17/2017 11:16 AM
--- NOTE | 2017-05-17 11:27 | DIAGNOSTIC IMAGING REPORT ---
L TIBIA/FIBULA 2 VIEWS ROUTINE CLINICAL HISTORY: Fall. COMPARISON: None FINDINGS: No acute fracture of the left tibia or fibula is identified. Irregularity of the medial malleolus and fibular tip suggests old injury. There is moderate posterior calcaneal spurring. IMPRESSION: No acute fracture of the left tibia or fibula. Electronically signed by: Tim Israel M.D. 05/17/2017 11:26 AM Dictated Date/Time: 05/17/2017 11:25 AM
[2017-05-17 11:36] VITALS: BP 176/57; PULSE 54; TEMP 36.5; O2SAT 97
--- NOTE | 2017-05-17 14:31 | EMERGENCY ROOM VISIT NOTE ---
History Report prepared by Debbie: Robert Kemp Under the Supervision of: Dr. Michael Duran D.O. First contact with patient: 09:21 Chief Complaint: FALL Stated Complaint: KNEE PAIN POST FALL History of Present Illness The patient is a 81 year old female who presents to the Emergency Room with complaints of a sudden fall occurring prior to arrival. The patient states that she was rolling to get out of bed, and she fell onto her front. She is currently complaining of left knee pain. She currently lives at [facility]. Pt denies loss of consciousness, headache, change in vision, fevers, chest pain, shortness of breath, abdominal pain, nausea, vomiting, diarrhea, and pain with urination. She has actually no other complaints at this time. Source of History: patient Onset: prior to arrival Position: other (global) Quality: other (fall) Timing: other (sudden) Associated Symptoms: No chest pain, No abdominal pain Note: Associated symptoms: Left knee pain Review of Systems See HPI for pertinent positives & negatives. A total of 10 systems reviewed and were otherwise negative. Past Medical & Surgical Medical Problems: (1) Altered mental status (2) Atrial Fibrillation with rapid ventricular rate (3) Atrial fibrillation with RVR (4) Atrial fibrillation with RVR (5) Chronic ischemic heart disease (6) Chronic kidney disease stage 3 (7) Chronic otitis externa (8) Dehydration (9) Dehydration (10) Dyslipidemia (11) Fall (12) Gastroenteritis (13) Humerus head fracture (14) Hypomagnesemia (15) Local infection of wound (16) Mental status change (17) Subjective tinnitus (18) UTI (urinary tract infection) (19) Vertigo (20) Vomiting Family History Heart disease Hypertension Stroke Social History Smoking Status: Former Smoker Alcohol Use: none Drug Use: none Marital Status: Housing Status: jail Occupation Status: retired Current/Historical Medications Scheduled Amlodipine Besylate (Norvasc), 10 MG PO DAILY Aspirin (Aspirin Chewable), 81 MG PO BID Atorvastatin (Lipitor), 40 MG PO QD@1700 Calcitriol (Rocaltrol Cap), 0.25 MCG PO 3XWK Clonazepam (Clonazepam Odt), 0.25 MG SL HS Docusate Sodium (Docusate Sodium), 100 MG PO BID Enteral Nutrition Formula (Ensure Plus Vanilla), 1 CAN PO TID Escitalopram (Lexapro), 10 MG PO DAILY Omeprazole (Prilosec), 20 MG PO DAILY Potassium Ext Rel (Klor-Con), 20 MEQ PO DAILY Senna (Senokot), 8.6 MG PO HS Scheduled PRN Acetaminophen Tab (Tylenol), 650 MG PO Q4H PRN for Mild Pain Bisacodyl (Dulcolax), 1 SUPP TX Q24H PRN for Constipation Guaifenesin Ext Rel (Mucinex Ext Rel), 600 MG PO Q12 PRN for CONGESTION Magnesium Hydroxide (Milk Of Magnesia), 30 ML PO DAILY PRN for Constipation Nitroglycerin (Nitrostat), 0.4 MG UT UD PRN for Chest Pain Polyethylene Glycol 3350 (Miralax), 17 GM PO DAILY PRN for Constipation Sennosides-Docusate Sodium (Senokot S), 1 TAB PO Q24H PRN for Constipation Allergies Coded Allergies: No Known Allergies (Verified , ., 05/17/17) Physical Exam Vital Signs Date Time Temp Pulse Resp B/P (MAP) Pulse Ox O2 Delivery O2 Flow Rate FiO2 05/17/17 11:36 36.5 54 16 176/57 97 Room Air 05/17/17 09:25 36.7 52 18 175/73 96 Physical Exam GENERAL: alert, well appearing, well nourished, no distress, non-toxic HEAD: normal cephalic, abrasion to the left side of the nose. EYE EXAM: normal conjunctiva, PERRL and EOM's grossly intact OROPHARYNX: no exudate, no erythema, lips, buccal mucosa, and tongue normal and mucous membranes are moist EARS: TMs clear b/l NECK: supple, no nuchal rigidity, no adenopathy, non-tender CHEST: stable to compression anteriorly and posteriorly LUNGS: clear to auscultation. Normal chest wall mechanics HEART: no murmurs, S1 normal and S2 normal ABDOMEN: abdomen soft, non-tender, normo-active bowel sounds, no masses, no rebound or guarding. PELVIS: stable to compression anteriorly and posteriorly BACK: Back is symmetrical on inspection and there is no deformity, no midline tenderness, no CVA tenderness. UPPER EXTREMITIES: full active and passive range of motion of all joints without tenderness to palpation LOWER EXTREMITIES: Bruise to the left knee on the left inferior aspect. Full active and passive range of motion of all joints without tenderness to palpation NEURO EXAM: Normal sensorium, cranial nerves II-XII grossly intact, normal speech, no gross weakness of arms, no gross weakness of legs. GCS: 15. Medical Decision & Procedures ER Provider Diagnostic Interpretation: Radiology results as stated below per my review and the radiologist's interpretation: CT HEAD WITHOUT CONTRAST (CT) CLINICAL HISTORY: Head pain status post trauma. Dementia. COMPARISON STUDY: 09/19/2016 TECHNIQUE: Axial CT of the brain is performed from the vertex to the skull base. IV contrast was not administered for this examination. A dose lowering technique was utilized adhering to the principles of ALARA. CT DOSE: 729.78 mGycm FINDINGS: No intra or extra-axial mass lesions are visualized. There is no CT evidence of acute cortical infarction. There is no evidence of midline shift. There is no acute hemorrhage. No calvarial fractures are visualized. There are patchy white matter hypodensities likely on a small vessel basis. 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 There is stable mild ventricular dilatation likely secondary to volume loss There is no evidence of acute sinusitis IMPRESSION: No acute intracranial findings Electronically signed by: Ace Mccormack M.D. 05/17/2017 10:26 AM Dictated Date/Time: 05/17/2017 10:[address] DOSE: 472.13 mGycm HISTORY: Neck pain. fall TECHNIQUE: Multiaxial CT images of the cervical spine were performed and reformatted in the sagittal and coronal plane without the use of contrast. A dose lowering technique was utilized adhering to the principles of ALARA. COMPARISON: None. FINDINGS: No fractures. No subluxation. Prevertebral soft tissues and the C1-C2 interval are intact. No pneumothorax. Old infarcts within the left occipital lobe and cerebellar hemispheres. Moderate to space narrowing at C4-C5 and C5-C6. Mild disc space narrowing at C2-C3. IMPRESSION: No fractures within the cervical spine. Electronically signed by: Reji Duvall M.D. 05/17/2017 10:30 AM Dictated Date/Time: 05/17/2017 10:25 AM L TIBIA/FIBULA 2 VIEWS ROUTINE CLINICAL HISTORY: Fall. COMPARISON: None FINDINGS: No acute fracture of the left tibia or fibula is identified. Irregularity of the medial malleolus and fibular tip suggests old injury. There is moderate posterior calcaneal spurring. IMPRESSION: No acute fracture of the left tibia or fibula. Electronically signed by: Tim Israel M.D. 05/17/2017 11:26 AM Dictated Date/Time: 05/17/2017 11:25 AM L KNEE 3 VIEWS CLINICAL HISTORY: Left knee pain status post trauma COMPARISON: None. DISCUSSION: The bones are osteopenic. No fractures or dislocations are visualized. IMPRESSION: No fractures or dislocations identified. Electronically signed by: Ace Mccormack M.D. 05/17/2017 11:17 AM Dictated Date/Time: 05/17/2017 11:16 AM ED Course ED COURSE: Vital signs were reviewed and showed situational hypertension and bradycardia The patients medical record was reviewed The above diagnostic studies were performed and reviewed. ED treatments and interventions as stated above. 0921: The patient was evaluated in room A4. A complete history and physical examination was performed. 1136: Upon reevaluation, the patient is doing well.I discussed my findings with the patient and she understands and agrees with the treatment plan. Based on the patients age, coexisting illnesses, exam and lab findings the decision to treat as an outpatient was made. The patient remained stable while under my care. The patient appeared well at the time of discharge. Medical Decision Differential diagnoses include major intracranial, cervical, spinal, thoracic, abdominal, pelvic and neurologic injury. Fracture, contusion, sprain, strain, laceration, abrasions included as well. Patient is a 81-year-old female who presents to the ER following falling out of bed. She has no complaints with the exception of nose pain and left knee pain. CT head and cervical spine were unremarkable. X-rays of the left tibia and knee show no acute fractures. On reevaluation she had mild right knee pain. Full range of motion was intact as before. No bruising. Patient was updated at bedside she will be discharged back to her assisted living facility. Discussed with Pt concerning signs and symptoms to watch out for. Pt was instructed to follow up with their PCP and discussed with the patient their option to return to the ED at anytime for persistent or worsening symptoms. The appropriate anticipatory guidance and out-patient management, including indications for return to the emergency department, were explained at length to the patient and understood. Medication Reconcilliation Current Medication List: was personally reviewed by me Blood Pressure Screening Patient's blood pressure: Elevated blood pressure Blood pressure disposition: Elevated BP felt to be situational Impression Primary Impression: Fall Additional Impression: Contusion of multiple sites Scribe Attestation The scribe's documentation has been prepared under my direction and personally reviewed by me in its entirety. I confirm that the note above accurately reflects all work, treatment, procedures, and medical decision making performed by me. Departure Information Dispostion Home / Self-Care Referrals [place] (PCP) Forms HOME CARE DOCUMENTATION FORM, IMPORTANT VISIT INFORMATION Patient Instructions ED Contusion Face, My [facility] Additional Instructions Please follow up with your primary care doctor with in the next 24 hours. Any worsening of your symptoms, please return to the ED immediately. This includes any fevers greater than 100.4, worsening pain, chest pain, shortness breath, persistent nausea, vomiting, unable to eat or drink, or any other concerning signs or symptoms from your standpoint. Please take Tylenol as needed for aches and pains. Problem Qualifiers Primary Impression: Fall Encounter type: initial encounter Qualified Codes: W19.XXXA - Unspecified fall, initial encounter
== END 2017-05-17 11:51 | disposition home or self-care (01) ==
LOC: EDBD 09:19 → C.EDA 09:21
DX: T14.8XXA Other injury of unspecified body region, initial encounter (principal); W19.XXXA Unspecified fall, initial encounter; I48.91 Unspecified atrial fibrillation; N18.3 Chronic kidney disease, stage 3 (moderate); E78.5 Hyperlipidemia, unspecified; Z82.49 Family history of ischemic heart disease and other diseases of the circulatory system; Z82.3 Family history of stroke; Z87.891 Personal history of nicotine dependence; Z79.82 Long term (current) use of aspirin

== ENCOUNTER 2018-12-16 07:48 | Inpatient (IN) ==
[2018-12-16] MEDS ORDERED: ONDANSETRON INJ 2 MG/ML 2 ML VIAL IV STA (07:58)
[2018-12-16] MEDS ORDERED: MoRPHine SULFATE 4 MG/ML 1 ML CARP\\VIAL IV PRN (07:58)
[2018-12-16 08:59] LABS: Basophils # (auto) 0.02 K/uL (0-0.2); Basophils % (auto) 0.2 %; Eosinophils # (auto) 0.15 K/uL (0-0.5); Eosinophils % (auto) 1.6 %; Hematocrit (blood only) 30.8 % (37-47); Hemoglobin 10.3 g/dL (12.0-16.0); Immature Granulocytes # (auto) 0.03 K/uL (0.00-0.02); Immature Granulocytes % (auto) 0.3 %; Lymphocytes # (auto) 0.93 K/uL (1.2-3.4); Lymphocytes % (auto) 9.8 %; Mean Corpuscular Hemoglobin 30.7 pg (25-34); Mean Corpuscular Hgb Conc 33.4 g/dL (32-36); Mean Corpuscular Volume 91.7 fL (80-100); Mean Platelet Volume 11.1 fL (7.4-10.4); Monocytes % (auto) 5.3 %; Neutrophils # (auto) 7.89 K/uL (1.4-6.5); Neutrophils % (auto) 82.8 %; Platelet Count 185 K/uL (130-400); RDW Standard Deviation 46.9 fL (36.4-46.3); Red Blood Count 3.36 M/uL (4.2-5.4); White Blood Count 9.52 K/uL (4.8-10.8)
[2018-12-16 09:11] LABS: Prothrombin Time 9.8 Seconds (9.0-12.0)
[2018-12-16 09:13] LABS: Partial Thromboplastin Time < 20.0 Seconds (21.0-31.0)
[2018-12-16 09:14] LABS: Partial Thromboplastin Ratio < 0.7
[2018-12-16 09:15] LABS: BUN Creatinine Ratio 16.3 (10-20); Blood Urea Nitrogen 22 mg/dl (7-18); Calcium 9.4 mg/dl (8.5-10.1); Carbon Dioxide 27 mmol/L (21-32); Chloride 108 mmol/L (98-107); Creatinine Clr Calc Pharmacy 24.3 ml/min; Est GFR (African American) 41.8; Est GFR (Non-African American) 36.1; Glucose 93 mg/dl (70-99); Potassium 4.2 mmol/L (3.5-5.1); Sodium 142 mmol/L (136-145)
[2018-12-16 09:19] LABS: Troponin I < 0.015 ng/ml (0-0.045)
--- NOTE | 2018-12-16 09:44 | CT Scan Report ---
CT OF THE HEAD WITHOUT CONTRAST CLINICAL HISTORY: fall COMPARISON STUDY: Head CT May 24, 2018. TECHNIQUE: Helical axial images of the head were obtained without IV contrast. Automated exposure con trol was utilized for the study. A dose lowering technique was utilized adhering to the principles o f ALARA. FINDINGS: No acute intracranial hemorrhage, midline shift or mass effect is present. Old left occipit al lobe infarct is noted. Ventricular system is stable. Basilar cisterns are patent. There are old in farcts within the bilateral cerebellar hemispheres. These are unchanged. White matter hypodensity sug gests small vessel disease. There is no calvarial fracture. IMPRESSION: 1. No acute intracranial findings. Multiple old infarcts. 2. No calvarial fracture. Electronically signed by: Tim Israel M.D. 12/16/2018 9:43 AM
--- NOTE | 2018-12-16 09:51 | CT Scan Report ---
CT OF THE CERVICAL SPINE WITHOUT CONTRAST CLINICAL HISTORY: fall COMPARISON STUDY: Cervical spine CT March 02, 2018. TECHNIQUE: Helical axial images of the cervical spine were obtained without IV contrast. Sagittal a nd coronal reconstructions were viewed. Automated exposure control was utilized for the study. A do se lowering technique was utilized adhering to the principles of ALARA. FINDINGS: Alignment of the cervical spine is anatomic. Vertebral body heights are maintained. No acut e cervical spine fracture or subluxation is present. There is no prevertebral edema. Facet joints are intact. Moderate multilevel disc space narrowing, osteophytosis and facet arthrosis is present. IMPRESSION: No acute cervical spine fracture or subluxation. Electronically signed by: Tim Israel M.D. 12/16/2018 9:50 AM
--- NOTE | 2018-12-16 09:56 | XRay Report ---
XR hip LT 2V w pelvis CLINICAL HISTORY: Fall. COMPARISON: CT of the abdomen and pelvis October 02, 2016. FINDINGS: Lucency and irregularity within the intertrochanteric portion of the left femur is noted. Increased density within the intertrochanteric portion is also favored. This suggests an acute fractu re. No additional fractures are identified on this examination. IMPRESSION: Suspected acute intertrochanteric fracture of the left femur. A CT is recommended for con firmation. Electronically signed by: Tim Israel M.D. 12/16/2018 9:54 AM
--- NOTE | 2018-12-16 09:57 | XRay Report ---
XR chest 1V portable CLINICAL HISTORY: fall COMPARISON STUDY: Chest radiograph September 07, 2016. FINDINGS: Lung volumes are normal. Lungs are clear. There is no pneumothorax or pleural effusion. Car diac size is normal. Mediastinal contours are normal. There is no evidence for pulmonary edema. A hia ace hernia is noted. IMPRESSION: No acute cardiopulmonary findings. Electronically signed by: Tim Israel M.D. 12/16/2018 9:55 AM
--- NOTE | 2018-12-16 10:47 | Emergency Department Note ---
Entered by Edith Wan acting as a scribe for History of Present Illness General Chief complaint: Fall Source: patient and EMS Mode of arrival: EMS History of Present Illness Onset (ago): hour(s) (this morning ) Location: hip (left) Pain Consistency: + other (episode) Quality: + other (injury status post fall ) Exacerbated By: + movement (resistant to movement at left hip) The patient is a 83 year old female that is presenting to the Emergency Room wi th complaints of an episode of left hip pain status post a fall that occurred this morning.The patient was brought to the ED via EMS. EMS states that the patient was found this morning by medical staff at her detention after an unwitnessed fall. EMS notes that the patient was found with her head up against the wall. EMS reports the patient is primarily complaining of left hip pain and that she was unable to uncross her legs secondary to the pain. The EMS states that she does not have any visible head injuries. The patient denies any previous fractures, despite the left arm being in a cast from a previous fall. The patient notes some hip pain with palpation of the area. HPI and ROS are limited secondary to the patients dementia. Home Medications Home Medications Medication Instructions Recorded Confirmed Type amlodipine 10 mg PO DAILY 01/21/18 12/16/18 History aspirin 81 mg PO BID 01/21/18 12/16/18 History atorvastatin 40 mg PO DAILY 01/21/18 12/16/18 History calcitriol 0.25 mcg PO MOWEFR 01/21/18 12/16/18 History docusate sodium 100 mg PO BID 01/21/18 12/16/18 History escitalopram oxalate 10 mg PO DAILY 01/21/18 12/16/18 History nitroglycerin [Nitrostat] 0.4 mg SUBLINGUAL DIRECTED PRN 01/21/18 12/16/18 History omeprazole 20 mg PO DAILY 01/21/18 12/16/18 History potassium chloride 20 meq PO DAILY 01/21/18 12/16/18 History sennosides [Senexon] 8.6 mg PO HS PRN 01/21/18 12/16/18 History acetaminophen 325 mg PO Q4H PRN 12/16/18 12/16/18 History clonazepam 0.25 mg PO HS 12/16/18 12/16/18 History food supplemt, lactose-reduced 1 ea PO TID PRN 12/16/18 12/16/18 History [Ensure] Allergies Allergy/AdvReac Type Severity Reaction Status Date / Time No Known Allergies Allergy . 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) Surgical History History of appendectomy (Chronic) History of partial hysterectomy (Chronic) History of coronary artery balloon dilation (Chronic) 1994 Family History Father Stroke Mother Stroke Other Family history non-contributory Social History Preferred Language: [place]ian Communication Ability: Effective Communication Ability Comment: has dementia Beliefs That Will Affect Care: None marital status: / Current Living Situation: Senior Living Current Living Situation Comment: [facility] current occupational status: retired Other Information That Helps Us Care for You: No Feels Safe at Home: Yes Safety Concerns: Feels Safe At This Time Smoking Status: Former smoker Hx Alcohol Use: Yes Alcohol Intake Frequency: Holidays/Special Occasions Hx Substance Use: No Review of Systems HPI and ROS are limited secondary to the patient's dementia. Physical Exam Vital Signs Vital Signs - 24 hr 12/16/18 07:59 12/16/18 09:53 12/16/18 10:04 Temperature 37.2 C Temperature Source Oral Sepsis Recent Fever Within 48 Hours No Sepsis New/Unexplained Change in Mental Status No Sepsis Action Taken by Nursing No Action Required Pulse Rate 59 L Pulse Rate [Apical] 63 Respiratory Rate 16 16 Blood Pressure 180/75 H Blood Pressure [Left Arm] 174/95 H Blood Pressure Mean 110 Blood Pressure Mean [Left Arm] 121 Pulse Oximetry 96 97 Oxygen Delivery Method Room Air Room Air Room Air GENERAL: Patient is awake and alert. The patient is anxious and uncomfortable appearing. EYES: The conjunctivae are clear. The pupils are round and reactive. EARS, NOSE, MOUTH AND THROAT: The nose is without any evidence of any deformity. Mucous membranes are moist.Tongue is midline NECK: The neck is nontender and supple. RESPIRATORY: Normal respiratory effort is noted. There is no evidence of wheezing rhonchi or rales to auscultation. CARDIOVASCULAR: Ectopy noted to auscultation and no murmur is noted. GASTROINTESTINAL: The abdomen is soft. Bowel sounds are present in all quadrants. Abdomen is nontender. BACK: No midline tenderness or or step-off noted range of motion in flexion extension as well as rotation no signs of muscle spasm noted. MUSCULOSKELETAL/EXTREMITIES: Left upper extremity is in a splint but patient does not remember why the splint is in place. Left lower extremity was held at flexion at the hip. Patient resists any range of motion at the left hip. SKIN:Trace pedal edema bilaterally, pulses symmetric in both feet. NEUROLOGIC: Patient is oriented to person, place, but not situation. Course 0751:The patient was evaluated in room B03B. A complete history and physical examination was performed. 1002: I discussed the patient's case with TANIA Kahn, who will evaluate the patient for further management and care with Dr. Gao as the attending physician. 1015: Upon reevaluation, the patient is resting comfortably. I discussed laboratory and radiographic results with patient. She verbalized agreement of the treatment plan. The patient will be evaluated for further management and care. Consultations Consultation #1: I discussed the patient's case with TANIA Kahn, who will evaluate the patient for further management and care with Dr. Gao as the attending physician. Time: 10:02 Administered Medications Acetaminophen (Tylenol) 650 mg PO QID CARLOS Stop: 01/15/19 12:59 Last Admin: 12/16/18 21:30 Dose: 650 mg Documented by: [id number] Admin: 12/16/18 18:04 Dose: 650 mg Documented by: [id number] Admin: 12/16/18 14:11 Dose: 650 mg Documented by: [id number] Lactated Ringer's (Lr) 1,000 mls @ 80 mls/hr IV .[id number] CARLOS Stop: 01/15/19 12:38 Last Admin: 12/17/18 01:51 Dose: 80 mls/hr Documented by: [id number] Infusion: 12/17/18 01:51 Dose: 80 mls/hr Documented by: [id number] Admin: 12/16/18 13:50 Dose: 80 mls/hr Documented by: [id number] Morphine Sulfate (Morphine Sulfate) 2 mg IV Q2H PRN PRN Reason: Severe Pain Stop: 12/30/18 12:38 Last Admin: 12/17/18 04:14 Dose: 2 mg Documented by: [id number] Senna/Docusate Sodium (Senokot S) 2 tab PO HS CARLOS Stop: 01/15/19 20:59 Last Admin: 12/16/18 21:30 Dose: 2 tab Documented by: [id number] Discontinued Medications Hydralazine HCl (Hydralazine Hcl) 5 mg IV NOW ONE Stop: 12/17/18 05:57 Last Admin: 12/17/18 06:08 Dose: 5 mg Documented by: [id number] Morphine Sulfate (Morphine Sulfate) 4 mg IV Q15M PRN PRN Reason: Pain Stop: 12/30/18 07:57 Last Admin: 12/16/18 10:25 Dose: 4 mg Documented by: [id number] Ondansetron HCl (Zofran) 4 mg IV NOW STA Stop: 12/16/18 07:59 Last Admin: 12/16/18 11:37 Dose: Not Given Documented by: [id number] Medical Decision Making Differential Diagnosis Differential diagnosis: Etiologies such as fracture, dislocation, intra-abdominal, pneumothorax, intrathoracic , intracranial, neurologic, as well as other traumatic pathologies were entertained. Medical Records Attestation: I reviewed the patient's medical records. Home Medications Current Medication List: was personally reviewed by me Laboratory Data Attestation: I reviewed the patient's lab results. Result diagrams: 12/16/18 08:16 12/16/18 08:16 Lab Results 12/16/18 12/16/18 12/16/18 Range/Units 08:16 08:16 08:16 WBC 9.52 (4.8-10.8) K/uL RBC 3.36 L (4.2-5.4) M/uL Hgb 10.3 L (12.0-16.0) g/dL Hct 30.8 L (37-47) % MCV 91.7 (80-100) fL MCH 30.7 (25-34) pg MCHC 33.4 (32-36) g/dL RDW Std Deviation 46.9 H (36.4-46.3) fL RDW Coeff of Chapo 14.0 (11.5-14.5) % Plt Count 185 (130-400) K/uL MPV 11.1 H (7.4-10.4) fL Immature Gran % (Auto) 0.3 % Neut % (Auto) 82.8 % Lymph % (Auto) 9.8 % [place] % (Auto) 5.3 % Eos % (Auto) 1.6 % Baso % (Auto) 0.2 % Immature Gran # (Auto) 0.03 H (0.00-0.02) K/uL Neut # (Auto) 7.89 H (1.4-6.5) K/uL Lymph # (Auto) 0.93 L (1.2-3.4) K/uL [place] # (Auto) 0.50 (0.11-0.59) K/uL Eos # (Auto) 0.15 (0-0.5) K/uL Baso # (Auto) 0.02 (0-0.2) K/uL PT 9.8 (9.0-12.0) Seconds INR 1.0 (0.9-1.1) APTT < 20.0 L (21.0-31.0) Seconds PTT Ratio < 0.7 Sodium 142 (136-145) mmol/L Potassium 4.2 (3.5-5.1) mmol/L Chloride 108 H (98-107) mmol/L Carbon Dioxide 27 (21-32) mmol/L Anion Gap 7.0 (3-11) BUN 22 H (7-18) mg/dl Creatinine 1.37 H (0.6-1.2) mg/dl Est Cr Clr Drug Dosing 24.3 ml/min Est GFR ( Amer) 41.8 Est GFR (Non-Af Amer) 36.1 BUN/Creatinine Ratio 16.3 (10-20) Glucose 93 (70-99) mg/dl Calcium 9.4 (8.5-10.1) mg/dl Troponin I < 0.015 (0-0.045) ng/ml Blood Type Antibody Screen 12/16/18 Range/Units 08:18 WBC (4.8-10.8) K/uL RBC (4.2-5.4) M/uL Hgb (12.0-16.0) g/dL Hct (37-47) % MCV (80-100) fL MCH (25-34) pg MCHC (32-36) g/dL RDW Std Deviation (36.4-46.3) fL RDW Coeff of Chapo (11.5-14.5) % Plt Count (130-400) K/uL MPV (7.4-10.4) fL Immature Gran % (Auto) % Neut % (Auto) % Lymph % (Auto) % [place] % (Auto) % Eos % (Auto) % Baso % (Auto) % Immature Gran # (Auto) (0.00-0.02) K/uL Neut # (Auto) (1.4-6.5) K/uL Lymph # (Auto) (1.2-3.4) K/uL [place] # (Auto) (0.11-0.59) K/uL Eos # (Auto) (0-0.5) K/uL Baso # (Auto) (0-0.2) K/uL PT (9.0-12.0) Seconds INR (0.9-1.1) APTT (21.0-31.0) Seconds PTT Ratio Sodium (136-145) mmol/L Potassium (3.5-5.1) mmol/L Chloride (98-107) mmol/L Carbon Dioxide (21-32) mmol/L Anion Gap (3-11) BUN (7-18) mg/dl Creatinine (0.6-1.2) mg/dl Est Cr Clr Drug Dosing ml/min Est GFR ( Amer) Est GFR (Non-Af Amer) BUN/Creatinine Ratio (10-20) Glucose (70-99) mg/dl Calcium (8.5-10.1) mg/dl Troponin I (0-0.045) ng/ml Blood Type O Positive Antibody Screen NEGATIVE Imaging Data Radiologist's Impression: Radiology results as stated below per my review and the radiologist's interpretation: CT OF THE CERVICAL SPINE WITHOUT CONTRAST CLINICAL HISTORY: fall COMPARISON STUDY: Cervical spine CT March 02, 2018. TECHNIQUE: Helical axial images of the cervical spine were obtained without IV contrast. Sagittal and coronal reconstructions were viewed. Automated exposure control was utilized for the study. A dose lowering technique was utilized adhering to the principles of ALARA. FINDINGS: Alignment of the cervical spine is anatomic. Vertebral body heights are maintained. No acute cervical spine fracture or subluxation is present. There is no prevertebral edema. Facet joints are intact. Moderate multilevel d isc space narrowing, osteophytosis and facet arthrosis is present. IMPRESSION: No acute cervical spine fracture or subluxation. Electronically signed by: Tim Israel M.D. 12/16/2018 9:50 AM XR chest 1V portable CLINICAL HISTORY: fall COMPARISON STUDY: Chest radiograph September 07, 2016. FINDINGS: Lung volumes are normal. Lungs are clear. There is no pneumothorax or pleural effusion. Cardiac size is normal. Mediastinal contours are normal. There is no evidence for pulmonary edema. A hiatal hernia is noted. IMPRESSION: No acute cardiopulmonary findings. Electronically signed by: Tim Israel M.D. 12/16/2018 9:55 AM XR hip LT 2V w pelvis CLINICAL HISTORY: Fall. COMPARISON: CT of the abdomen and pelvis October 02, 2016. FINDINGS: Lucency and irregularity within the intertrochanteric portion of the left femur is noted. Increased density within the intertrochanteric portion is also favored. This suggests an acute fracture. No additional fractures are identified on this examination. IMPRESSION: Suspected acute intertrochanteric fracture of the left femur. A CT is recommended for confirmation. Electronically signed by: Tim Israel M.D. 12/16/2018 9:[address] OF THE HEAD WITHOUT CONTRAST CLINICAL HISTORY: fall COMPARISON STUDY: Head CT May 24, 2018. TECHNIQUE: Helical axial images of the head were obtained without IV contrast. Automated exposure control was utilized for the study. A dose lowering technique was utilized adhering to the principles of ALARA. FINDINGS: No acute intracranial hemorrhage, midline shift or mass effect is present. Old left occipital lobe infarct is noted. Ventricular system is stable. Basilar cisterns are patent. There are old infarcts within the bilateral cerebellar hemispheres. These are unchanged. White matter hypodensity suggests small vessel disease. There is no calvarial fracture. IMPRESSION: 1. No acute intracranial findings. Multiple old infarcts. 2. No calvarial fracture. Electronically signed by: Tim Israel M.D. 12/16/2018 9:43 AM ECG Data Attestation: I personally reviewed and interpreted this ECG as follows: Indication: other (trauma) Rate (beats per minute): 59 Rhythm: sinus bradycardia Findings: + other (diffuse ST abnormalities ); no PAC, no PVC and no ectopy Comparison ECG Date: from (09/28/17) Change: no significant change Blood Pressure Blood Pressure Findings: Elevated blood pressure Blood Pressure Disposition: Referred to patients primary care provider MDM Narrative The patient is an 83-year-old female who presented to the emergency department after a fall. The patient was [facility]. She suffers from dementia. There was some report that the patient may have struck her head. The patient had left hip pain on physical exam. I discussed the patient's laboratory and radiographic studies with her. She was found to have a left intertrochanteric hip fracture. I discussed her case with the on- call [facility] hospitalist group. They have agreed to evaluate the patient in the emergency department for further management disposition. The patient was treated with IV pain medication in the emergency department. She was somewhat improved on reevaluation. Impression & Plan Fall, Closed fracture of left hip, Dementia Discharge Plan Visit Data *Final* Discharge Date/Time: 12/16/18 11:42 Chief Complaint: Fall Other Complaint: Hip Pain ED Provider: Panchito Flores Discharge Problem: Fall, Closed fracture of left hip, Dementia Patient Disposition: Admitted As Inpatient Discharge Instructions Interventions: ED Discharge Assessment Last Done: 12/16/18 11:42 Discharge Problem: Fall Qualifiers: Encounter type: initial encounter Qualified Code(s): W19.XXXA - Unspecified fall, initial encounter Closed fracture of left hip Qualifiers: Encounter type: initial encounter Qualified Code(s): S72.002A - Fracture of unspecified part of neck of left femur, initial encounter for closed fracture The scribe's documentation has been prepared under my direction and personally reviewed by me in its entirety. I confirm that the note above accurately reflects all work, treatment, procedures, and medical decision making performed by me.
--- NOTE | 2018-12-16 11:26 | History & Physical Report ---
Date of Service December 16, 2018 Assessment & Plan (1) Fall: (2) Closed fracture of left hip: This is an 83-year-old female who has a significant past medical history of vascular dementia, history of CAD, hx of CVA, PAF off anticoagulation secondary to fall, HTN, HLD, history of T2DM, CKD stage III, depression, GERD who presents to [facility] ED secondary to mechanical fall prior to arrival. CT L femur reveals: IMPRESSION: Acute impacted mildly displaced intertrochanteric fracture of the left femur. Lab work revealed stable H&H of 10.3 and 30.8, WBC 9.52, platelet 185, BUN 22, creatinine 1.37, troponin WNL Chest x-ray without acute abnormality CT head reveals old bilateral cerebellar infarcts but no acute abnormality Admit to med/surg [facility] orthopedics Dr. Kinney consulted for L femur fx as well as previous L 4/5 metacarpal fx bed rest hip fx precautions NPO after midnight pre op antibiotics ordered IV cefazolin MRSA Swab SCDS IVF LR 80cc/hr obtain echocardiogram given unable to assess pt functional assessment due to limited mobility at baseline prior to clearance for surgical procedure Discussed with POA Daughter Anette [phone] who is currently out of town. She agrees with above assessment and treatment plan. She is reachable by cellphone and would like contacted with updates. She confirms DNR/DNI (3) Fracture, metacarpal: L 4th and 5th metacarpal fx placed in L short arm cast 10/27/[address] Jj Cast still in place, recommendation was follow up xray in 7-10 days Appears pt has been lost to follow up obtain L hand xray orthopedics consulted for above fx; appreciate their recommendations regarding metacarpal fx as well (4) Atrial fibrillation: Hx of PAF currently in NSR off OAC due to falls on ASA as outpt (5) Chronic ischemic heart disease: per daughter hx if balloon dilation back in 90s, no stent pt denies CP/SOB ECG reveals NSR, nonspec ST, T wave changes which are unchanged from prior ECG troponin WNL will obtain echocardiogram prior to surgical intervention (6) HTN (hypertension): blood pressure elevated in ED, likely secondary to pain Treat pain Continue amlodipine, monitor (7) History of CVA (cerebrovascular accident): 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 (9) Anemia: normocytic/normochromic likely of chronic disease H/H stable, follow (10) T2DM (type 2 diabetes mellitus): Per [facility] unknown A1C, last done 2015 5.7 will obtain A1C glucose on arrival 93 (11) Vascular dementia: mood stable monitor closely with use of narcotic (12) HLD (hyperlipidemia): continue statin (13) GERD (gastroesophageal reflux disease): continue PPI (14) DVT prophylaxis: SCD/TEDS for now Disposition: admit to med/surg Follow up: PCP Dr. Carrillo upon discharge along with appropriate orthopedic follow up Patient was seen and examined in collaboration with Dr. 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 Primary Care Provider: NO PCP This is an 83-year-old female who has a significant past medical history of vascular dementia, history of CAD, hx of CVA, PAF off anticoagulation secondary to fall, HTN, HLD, history of T2DM, CKD stage III, depression, GERD who presents to [facility] ED secondary to mechanical fall prior to arrival. Pt resides at [facility]. Pt recalls falling, but does not remember why. Denies LOC or syncope. Hx unreliable given hx of dementia. Per nurse at [facility], pt was found at side of bed with underwear around ankles laying on her left side. Pt unable to get up on own. Fall was unwitnessed, but thought was she was trying to get up to go to bathroom on own and fell. No other apparent injuries, hitting of head or LOC reported. Pt has been having increased falls. Fell 10/24 in which injured her L hand. Pt has short arm cast secondary to L 4th and 5th metacarpal fx; following Dr. Jj. Pt feels okay at moment w/o acute complaint. Denies pain to L leg or hand. Denies recent illness, f/c/s, dizziness, chest pain, SEGOVIA, SOB, cough, palpitations, n/v/d, dysuria, increased urg/freq with urination, constipation, melena, hematochezia. Appetite normal. Denies weight loss or gain. Per [place] and daughter pt with minimal ambulation at baseline. Mostly uses wheel chair. Can ambulate with walker short distances. Past surgical hx, FH, SH obtained from daughter and [facility]. Allergies Allergy/AdvReac Type Severity Reaction Status Date / Time No Known Allergies Allergy . Verified 12/16/18 09:09 Home Medications Home Medications Medication Instructions Recorded Confirmed Type amlodipine 10 mg PO DAILY 01/21/18 12/16/18 History aspirin 81 mg PO BID 01/21/18 12/16/18 History atorvastatin 40 mg PO DAILY 01/21/18 12/16/18 History calcitriol 0.25 mcg PO MOWEFR 01/21/18 12/16/18 History docusate sodium 100 mg PO BID 01/21/18 12/16/18 History escitalopram oxalate 10 mg PO DAILY 01/21/18 12/16/18 History nitroglycerin [Nitrostat] 0.4 mg SUBLINGUAL DIRECTED PRN 01/21/18 12/16/18 History omeprazole 20 mg PO DAILY 01/21/18 12/16/18 History potassium chloride 20 meq PO DAILY 01/21/18 12/16/18 History sennosides [Senexon] 8.6 mg PO HS PRN 01/21/18 12/16/18 History acetaminophen 325 mg PO Q4H PRN 12/16/18 12/16/18 History clonazepam 0.25 mg PO HS 12/16/18 12/16/18 History food supplemt, lactose-reduced 1 ea PO TID PRN 12/16/18 12/16/18 History [Ensure] Past Med/Surg History Medical History T2DM (type 2 diabetes mellitus) (Chronic) HLD (hyperlipidemia) (Chronic) Atrial fibrillation (Chronic) GERD (gastroesophageal reflux disease) (Chronic) Vascular dementia (Chronic) History of CVA (cerebrovascular accident) (Chronic) HTN (hypertension) (Chronic) Chronic otitis externa (Chronic 11/23/10) Chronic kidney disease stage 3 (Chronic 11/23/10) 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) Surgical History History of appendectomy (Chronic) History of partial hysterectomy (Chronic) History of coronary artery balloon dilation (Chronic) 1994 Family History Father Stroke Mother Stroke Other Family history non-contributory Social History Preferred Language: Lithuanian Communication Ability: Effective Communication Ability Comment: has dementia Beliefs That Will Affect Care: None marital status: / Current Living Situation: Senior Living Current Living Situation Comment: [facility] current occupational status: retired Other Information That Helps Us Care for You: No Feels Safe at Home: Yes Safety Concerns: Feels Safe At This Time Smoking Status: Former smoker Hx Alcohol Use: Yes Alcohol Intake Frequency: Holidays/Special Occasions Hx Substance Use: No Review of Systems Review of Systems: All systems reviewed & are unremarkable except as noted in HPI & below Physical Exam Physical Exam: Constitutional: WD/WN, elderly, F, vitals as above, NAD, sitting up in bed, pleasantly confused, conversing easily Head: Normocephalic, Atraumatic Eyes: PERRL, conjunctivae normal, anicteric sclerae ENMT: external ear and nose normal, oropharynx normal Neck: trachea midline, no thyromegaly normal visual inspection Respiratory: normal respiratory effort, lungs clear to auscultation, no wheeze, rales, rhonchi. Normal insp/exp effort, no accessory muscle use Cardiovascular: RRR, 1/6 WONG best noted cardiac base, no edema Vessels: no JVD or carotid bruit Chest: normal inspection of chest Abdomen: normal bowel sounds, soft, nontender, no hepatosplenomegaly Musculoskeletal: no cyanosis or clubbing, L leg shortening with internal rotation. LLE strength not assessed given concern for fx. All other extremities motor strength 4/5 Skin: no rashes, warm normal turgor Neurologic: PERRL, EOMI, accommodation nl, no face palsy, no dysarthria CN's II-XI intact bilaterally and moves all extremities Psychiatric: A+O to self, euthymic affect Lymphatic: no cervical or axillary lymphadenopathy : deferred Results & Data Vital Signs (Past 12 Hours) Vital Signs Temp Pulse Pulse Resp BP BP Pulse Ox 12/16/18 09:53 63 16 174/95 H 97 12/16/18 07:59 37.2 C 59 L 16 180/75 H 96 Laboratory Results Short CBC 12/16/18 Range/Units 08:16 WBC 9.52 (4.8-10.8) K/uL Hgb 10.3 L (12.0-16.0) g/dL Hct 30.8 L (37-47) % Plt Count 185 (130-400) K/uL BMP 12/16/18 08:16 Sodium 142 Potassium 4.2 Chloride 108 H Carbon Dioxide 27 BUN 22 H Creatinine 1.37 H Glucose 93 Calcium 9.4 Cardiac Enzymes 12/16/18 Range/Units 08:16 Troponin I < 0.015 (0-0.045) ng/ml Diagnostic Findings CT Femur: IMPRESSION: Acute impacted mildly displaced intertrochanteric fracture of the left femur. L femur Xray: IMPRESSION: Suspected acute intertrochanteric fracture of the left femur. A CT is recommended for confirmation. Head CT: FINDINGS: No acute intracranial hemorrhage, midline shift or mass effect is present. Old left occipital lobe infarct is noted. Ventricular system is stable. Basilar cisterns are patent. There are old infarcts within the bilateral cerebellar hemispheres. These are unchanged. White matter hypodensity suggests small vessel disease. There is no calvarial fracture. IMPRESSION: 1. No acute intracranial findings. Multiple old infarcts. 2. No calvarial fracture. CXR: IMPRESSION: No acute cardiopulmonary findings. Cspine CT: IMPRESSION: No acute cervical spine fracture or subluxation. Medications Administered Morphine Sulfate (Morphine Sulfate) 4 mg IV Q15M PRN PRN Reason: Pain Stop: 12/30/18 07:57 Last Admin: 12/16/18 10:25 Dose: 4 mg Documented by: [id number] ECG Rate (beats per minute): 68 Rhythm: sinus rhythm Findings: + nonspecific-ST abn Change: no significant change (since 2018) Code Status & VTE Plan Code Status DNR Discussed with POA Daughter Anette VTE Prophylaxis Plan VTE Prophylaxis will be ordered: Yes Supervising Physician Co-Signing Physician Notes Attending addendum: Patient was seen and examined in medical floor she is an 89-year-old female With significant past medical history as mentioned in H&P was admitted with the left hip fracture following a mechanical fall at [facility] Complains of pain in the left hip with movement Denies any cardiac symptoms before the fall and does not have any significant cardiac history On examination No apparent distress at rest Hemodynamically stable Chest-clear to auscultate bilaterally Heart-S1-S2 ,regular, no murmur appreciate Abdomen-benign Extremities-negative for any edema. Has left forearm in cast [employer]-alert, awake and oriented x3. Generally Admission labs, imaging studies and EKG noted we will get an echocardiogram To evaluate LV function and rule out any valvular heart disease Carries usual risk for surgery given no significant cardiac history in the past Admitted this plan as outlined above by TANIA Barragan DR - (1) Fall Encounter type: initial encounter Qualified Code(s): W19.XXXA - Unspecified fall, initial encounter (2) Closed fracture of left hip Encounter type: initial encounter Qualified Code(s): S72.002A - Fracture of unspecified part of neck of left femur, initial encounter for closed fracture
--- NOTE | 2018-12-16 11:37 | CT Scan Report ---
CT OF THE LEFT FEMUR WITHOUT CONTRAST CLINICAL HISTORY: L intertroch femur fx, xray recommend CT COMPARISON STUDY: CT of the abdomen and pelvis October 02, 2016. Left hip radiographs performed earlier today. TECHNIQUE: Axial images of the left femur were obtained without IV contrast. Sagittal and coronal rec onstructions were viewed. Automated exposure control was utilized for the study. A dose lowering nida hnique was utilized adhering to the principles of ALARA. FINDINGS: Note is made of an acute impacted mildly displaced intertrochanteric fracture of the left f emur. No additional left femoral fractures are noted. Alignment of the left hip and knee is anatomic. Bladder wall thickening appears similar to prior CT of September 2016. There is no left knee joint effusi on. No osseous lesion is identified by CT. Pubic symphysis is intact. IMPRESSION: Acute impacted mildly displaced intertrochanteric fracture of the left femur. Electronically signed by: Tim Israel M.D. 12/16/2018 11:36 AM
[2018-12-16] MEDS ORDERED: CEFAZOLIN 3000MG 65 ML IV SCH (12:39)
[2018-12-16] MEDS ORDERED: BISACODYL 10 MG SUPP PR PRN (12:39)
[2018-12-16] MEDS ORDERED: NALOXONE HCL 0.4 MG/1 ML VIAL/CARP IV PRN (12:39)
[2018-12-16] MEDS ORDERED: MAGNESIUM HYDROXIDE SUSP 30 ML UDC PO PRN ×2 (12:39)
[2018-12-16] MEDS ORDERED: ALUMINUM/MAGNESIUM SUSP 30 ML UDC PO PRN (12:39)
[2018-12-16] MEDS ORDERED: ACETAMINOPHEN 325 MG TAB PO PRN (12:39)
[2018-12-16] MEDS ORDERED: ONDANSETRON INJ 2 MG/ML 2 ML VIAL IV PRN (12:39)
[2018-12-16] MEDS ORDERED: POLYETHYLENE (MIRALAX) 17 GM PACK PO PRN (12:39)
[2018-12-16] MEDS ORDERED: OXYCODONE HCL IR 5 MG TAB (IMMEDIATE RELEASE) PO PRN (12:39)
[2018-12-16] MEDS ORDERED: MoRPHine SULFATE 2 MG/ML CARP IV PRN (12:39)
--- NOTE | 2018-12-16 13:07 | Anesthesiology Consultation ---
Date of Service December 16, 2018 Assessment & Plan (1) Encounter for pre-operative examination: Chart Review Chart Review: Pending: Refer to Additional Notes / Consult section (awaiting echocardiogram) Consults Requested none Proposed Anesthesia Risk / Benefits Reviewed With: PT / POA / Parent / Guardian, Accepts Plan and Informed Consent Obtained History Height/Weight Height: 5 ft 1 in Weight: 51 kg Allergies Allergy/AdvReac Type Severity Reaction Status Date / Time No Known Allergies Allergy . Verified 12/16/18 09:09 Medications Home Medications Medication Instructions Recorded Confirmed Last Taken amlodipine 10 mg PO DAILY 01/21/18 12/16/18 05/24/18 aspirin 81 mg PO BID 01/21/18 12/16/18 05/24/18 atorvastatin 40 mg PO DAILY 01/21/18 12/16/18 05/24/18 calcitriol 0.25 mcg PO MOWEFR 01/21/18 12/16/18 05/24/18 docusate sodium 100 mg PO BID 01/21/18 12/16/18 05/24/18 escitalopram oxalate 10 mg PO DAILY 01/21/18 12/16/18 05/24/18 nitroglycerin [Nitrostat] 0.4 mg SUBLINGUAL DIRECTED PRN 01/21/18 12/16/18 Unknown omeprazole 20 mg PO DAILY 01/21/18 12/16/18 05/24/18 potassium chloride 20 meq PO DAILY 01/21/18 12/16/18 05/24/18 sennosides [Senexon] 8.6 mg PO HS PRN 01/21/18 12/16/18 05/23/18 acetaminophen 325 mg PO Q4H PRN 12/16/18 12/16/18 Unknown clonazepam 0.25 mg PO HS 12/16/18 12/16/18 Unknown food supplemt, lactose-reduced 1 ea PO TID PRN 12/16/18 12/16/18 Unknown [Ensure] Past Medical History Medical History T2DM (type 2 diabetes mellitus) (Chronic) HLD (hyperlipidemia) (Chronic) Atrial fibrillation (Chronic) GERD (gastroesophageal reflux disease) (Chronic) Vascular dementia (Chronic) History of CVA (cerebrovascular accident) (Chronic) HTN (hypertension) (Chronic) Chronic otitis externa (Chronic 11/23/10) Chronic kidney disease stage 3 (Chronic 11/23/10) 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) Exercise / Class Metabolic Activity III < 4 Walking/Shop/Light housework Past Family History Family History Father Stroke Mother Stroke Other Family history non-contributory Past Surgical History Surgical History History of appendectomy (Chronic) History of partial hysterectomy (Chronic) History of coronary artery balloon dilation (Chronic) 1994 Past Anesthesia History No Hx of Anesthesia Complications and No Family Hx of Anesthesia Complications History of PONV No Hx of PONV and No Hx of Motion Sickness Social History Smoking Status: Former smoker Hx Alcohol Use: Yes Hx Substance Use: No Physical Exam Vital Signs Last Vital Signs Temp 99.0 F 12/16/18 07:59 Pulse 73 12/16/18 11:39 Resp 20 12/16/18 11:39 BP 146/73 H 12/16/18 11:39 Pulse Ox 93 12/16/18 11:39 ENMT Mouth: no dentition abnormality Thyromental Distance: > or= 3.5 Finger Breadths Mallampati Class: II Neck normal visual inspection Respiratory normal respiratory effort Auscultation: lungs clear to auscultation bilaterally Cardiovascular Rate/Rhythm: regular rate and regular rhythm Testing Laboratory Results 12/16/18 08:16 12/16/18 08:16 PT 9.8 Seconds (9.0-12.0) 12/16/18 08:16 INR 1.0 (0.9-1.1) 12/16/18 08:16 APTT < 20.0 Seconds (21.0-31.0) L 12/16/18 08:16 Blood Type O Positive 12/16/18 08:18 Antibody Screen NEGATIVE 12/16/18 08:18 Electrocardiogram Date: 12/16/18 Poor data quality, interpretation may be adversely affected Sinus bradycardia, rate [address] and T wave abnormality Abnormal ECG When compared with ECG of 28-SEP-2017 12:33, No significant change was found Chest X-Ray Date: 12/16/18 Findings: + NAD Other Testing Head CT 12/16/18 IMPRESSION: 1. No acute intracranial findings. Multiple old infarcts. 2. No calvarial fracture.
--- NOTE | 2018-12-16 13:30 | XRay Report ---
XR hand LT min 3V routine CLINICAL HISTORY: L 4th/5th metacarpal fx pt in cast COMPARISON: Left hand radiographs December 11, 2018. FINDINGS: Fine detail is obscured by overlying cast. However, alignment of the left fourth metacarpa l fracture appears unchanged. Carpal bones are grossly intact. A lucency projects over the third meta carpal. No distal left radial or ulnar fracture is noted. IMPRESSION: 1. Detail obscured by overlying cast however no change in alignment of the left fourth metacarpal fra cture. 2. Lucency within the left third metacarpal. Artifact is favored however a nondisplaced fracture coul d appear similar. Electronically signed by: Tim Israel M.D. 12/16/2018 1:29 PM
[2018-12-16] MEDS: LACTATED RINGER'S 1,000 ML IV SCH (13:50)
[2018-12-16] MEDS: ACETAMINOPHEN 325 MG TAB PO SCH ×3 (14:11→21:30)
--- NOTE | 2018-12-16 20:12 | Orthopedic Consultation ---
Date of Consultation December 16, 2018 Assessment & Plan (1) Closed fracture of left hip: We will likely proceed with an intramedullary nail fixation of her left hip tomorrow morning. I tried to call the daughter who is her power of senior attorney, however I was unable to get through. We will try again tomorrow. She will be n.p.o. past midnight tonight. Present on Admission?: Yes History of Present Illness Reason for Consultation: Left intertrochanteric hip fracture Attending Physician: Alphonso Gao MD History of Present Illness Maddy is a pleasant 83-year-old female who resides at [facility]. She has mild to moderate dementia. Earlier today she was getting up to go to the bathroom when she fell at her bedside. The fall was unwitnessed. She was having significant hip pain. She was brought to the emergency room. Radiographs demonstrated an intertrochanteric fracture of the left hip. She was admitted to the medical service. Orthopedics was consulted to evaluate and treat. She has a history of a metacarpal fracture to her left hand which is being treated by Dr. Jj. She fell about 6 weeks ago. She is still in a soft splint. Allergies Allergy/AdvReac Type Severity Reaction Status Date / Time No Known Allergies Allergy . Verified 12/16/18 09:09 Home Medications Home Medications Medication Instructions Recorded Confirmed Type amlodipine 10 mg PO DAILY 01/21/18 12/16/18 History aspirin 81 mg PO BID 01/21/18 12/16/18 History atorvastatin 40 mg PO DAILY 01/21/18 12/16/18 History calcitriol 0.25 mcg PO MOWEFR 01/21/18 12/16/18 History docusate sodium 100 mg PO BID 01/21/18 12/16/18 History escitalopram oxalate 10 mg PO DAILY 01/21/18 12/16/18 History nitroglycerin [Nitrostat] 0.4 mg SUBLINGUAL DIRECTED PRN 01/21/18 12/16/18 History omeprazole 20 mg PO DAILY 01/21/18 12/16/18 History potassium chloride 20 meq PO DAILY 01/21/18 12/16/18 History sennosides [Senexon] 8.6 mg PO HS PRN 01/21/18 12/16/18 History acetaminophen 325 mg PO Q4H PRN 12/16/18 12/16/18 History clonazepam 0.25 mg PO HS 12/16/18 12/16/18 History food supplemt, lactose-reduced 1 ea PO TID PRN 12/16/18 12/16/18 History [Ensure] Patient History Medical History T2DM (type 2 diabetes mellitus) (Chronic) HLD (hyperlipidemia) (Chronic) Atrial fibrillation (Chronic) GERD (gastroesophageal reflux disease) (Chronic) Vascular dementia (Chronic) History of CVA (cerebrovascular accident) (Chronic) HTN (hypertension) (Chronic) Chronic otitis externa (Chronic 11/23/10) Chronic kidney disease stage 3 (Chronic 11/23/10) 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) Surgical History History of appendectomy (Chronic) History of partial hysterectomy (Chronic) History of coronary artery balloon dilation (Chronic) 1994 Family History Father Stroke Mother Stroke Other Family history non-contributory Social History Preferred Language: Faroese Communication Ability: Effective Communication Ability Comment: has dementia Beliefs That Will Affect Care: None marital status: / Current Living Situation: Long-Term Current Living Situation Comment: [facility] current occupational status: retired Other Information That Helps Us Care for You: No Feels Safe at Home: Yes Safety Concerns: Feels Safe At This Time Smoking Status: Former smoker Hx Alcohol Use: Yes Alcohol Intake Frequency: Holidays/Special Occasions Hx Substance Use: No Review of Systems Review of Systems: All systems reviewed & are unremarkable except as noted in HPI & below Physical Exam Musculoskeletal: On physical examination of the left hip, her left leg is shortened and externally rotated. She has a lot of pain with logroll of the left hip. There are no abrasions lesions lacerations of the skin. She does have a soft splint on the left hand for a metacarpal fracture. Results & Data Vital Signs (Past 12 Hours) Vital Signs Temp Pulse Pulse Resp BP Pulse Ox 12/16/18 15:32 37.3 C 64 16 144/69 H 92 09/21/19 11:39 73 20 146/73 H 93 12/16/18 09:53 63 16 174/95 H 97 Laboratory Results H & H 12/16/18 Range/Units 08:16 Hgb 10.3 L (12.0-16.0) g/dL Hct 30.8 L (37-47) % Coagulation 12/16/18 Range/Units 08:16 INR 1.0 (0.9-1.1) Diagnostic Findings X-rays of the left hip show a minimally displaced left intertrochanteric hip fracture. X-rays of the left hand show a minimally displaced left fourth and fifth metacarpal fracture. PG Care Time/CCT Total # of Minutes Spent Total Time Spent with Patient: Total time spent is greater than 50% in coordination of care (as documented) at patient's floor/unit and/or counseling patient: (1) Closed fracture of left hip Encounter type: initial encounter Qualified Code(s): S72.002A - Fracture of u nspecified part of neck of left femur, initial encounter for closed fracture
[2018-12-16] MEDS ORDERED: DOCUSATE SODIUM/SENNA 50/8.6MG TAB PO SCH (21:00)
[2018-12-17] MEDS: LACTATED RINGER'S 1,000 ML IV SCH (01:51)
[2018-12-17] MEDS ORDERED: HydrALAZINE HCL 20 MG/ML VIAL IV ONE (05:56)
[2018-12-17 06:24] LABS: Appearance Urine Turbid (Clear); Bacteria Urine Automated 4+ (Negative); Bilirubin Urine Negative (Negative); Blood Urine 1+ (Negative); Color Urine Yellow; Epithelial Cell Urine Auto >30 /lpf (0-5); Glucose Urine UA Negative (Negative); Ketones Urine Negative (Negative); Leukocyte Esterase Urine 3+ (Negative); Nitrite Urine Positive (Negative); RBC Urine Automated 0-4 /hpf (0-4); Specific Gravity Urine 1.013 (1.000-1.030); Urobilinogen Urine Negative (Negative); WBC Urine Automated >30 /hpf (0-5); pH Urine 7.5 (4.5-7.5)
[2018-12-17 06:30] LABS: Protein Urine 2+ (Negative)
[2018-12-17 06:41] LABS: Amorphous Sediment Urine Present (None Prsent)
[2018-12-17] MEDS ORDERED: MIDAZOLAM HCL 1 MG/ML 2ML VIAL ONE (06:49)
[2018-12-17] MEDS ORDERED: fentaNYL citrate 100 MCG/2 ML VIAL ONE (06:49)
[2018-12-17] MEDS ORDERED: LIDOCAINE HCL 2% 2 ML VIAL/AMP(20MG/ML) INFIL ONE (06:54)
[2018-12-17] MEDS ORDERED: ONDANSETRON INJ 2 MG/ML 2 ML VIAL ONE (06:54)
[2018-12-17] MEDS ORDERED: PROPOFOL IV EMULSION 10 MG/ML 20 ML VIAL IV ONE (06:54)
[2018-12-17] MEDS ORDERED: BUPIVACAINE 0.5 % 5 MG/1 ML PF 10ML VIAL ONE (07:17)
[2018-12-17] MEDS ORDERED: ONDANSETRON INJ 2 MG/ML 2 ML VIAL IV PRN (07:27)
[2018-12-17] MEDS ORDERED: fentaNYL citrate 100 MCG/2 ML VIAL IV PRN (07:27)
[2018-12-17] MEDS ORDERED: ePHEDrine sulfate 50 MG/ML AMP IV PRN (07:27)
[2018-12-17] MEDS ORDERED: ATROPINE SULFATE 0.1 MG/ML 10ML SYR IV PRN (07:27)
--- NOTE | 2018-12-17 07:41 | History & Physical Bridge Note ---
Date of Service December 17, 2018 History & Physical Bridge Note I have examined the patient, reviewed the History & Physical and in the interval since the performance of the History & Physical I have noted the following changes of clinical significance: no changes noted
[2018-12-17] MEDS ORDERED: CEFAZOLIN 250 MG/ML 1 GM VIAL ONE (08:36)
[2018-12-17] MEDS ORDERED: SODIUM CHLORIDE 0.9% INJ 10 ML VIAL ONE (08:37)
[2018-12-17] MEDS ORDERED: ePHEDrine sulfate 50 MG/ML SYR ONE (08:38)
--- NOTE | 2018-12-17 09:04 | Operative Report ---
Post Operative Report Pre & Post Diagnosis Operation Date: 12/17/18 07:30 Pre-Op Diagnosis: Closed intertrochanteric fracture of the left hip Post-Op Diagnosis: Closed intertrochanteric fracture of the left hip Procedure Operation Date: 12/17/18 07:30 Actual Procedures p Intramedullary Nail Left Hip(Left) - Oumar Kinney DO Surgeon Oumar Kinney DO Expense Analyst None Estimated Blood Loss 50 Findings Consistent with Post-Op Diagnosis Specimens None Complications none Disposition Disposition: Recovery Room Indications Maddy is a pleasant 83-year-old female who fell yesterday at [facility]. It was an unwitnessed fall. She came to the emergency room and radiographs demo nstrated an intertrochanteric fracture of the left hip. After discussions with her and her daughter, she elected proceed with an intramedullary nail fixation of the left hip. Description of Procedure On December 17, 2018 she was brought down from her hospital room to the preoperative holding area. The operative extremity was identified and signed. She was given a preoperative antibiotic and a spinal anesthetic. She was taken back to the operating room and laid on the fracture table in supine position. She was put under basic sedation. The left leg was brought out to traction. X- rays demonstrated anatomic alignment of the fracture. The left hip was then prepped and draped in sterile fashion. A timeout was done. The patient and the operative extremity was properly identified. A longitudinal incision was made just superior to the greater trochanter. Dissection was taken down through the fascia. A guidepin was placed at the tip of the greater trochanter and advanced down the femoral canal. Appropriate alignment was checked on orthogonal fluoroscopic images. An 18 mm opening reamer was then used to open the femoral canal. A ball-tipped guidewire was then stent down the length of the femur. The femoral nail measured to be 360 mm. A Synthes TFN 11 mm x 360 mm nail was sent down the femoral shaft. Appropriate alignment was checked under fluoroscopy. The helical guide was placed on the outrigger. A small lateral incision was made and the cannula was advanced to the lateral cortex. A guidepin was sent up into the center center position of the femoral head. The helical blade measured to be 85 mm. The lateral cortex was drilled and then the helical blade was drilled. The helical blade was then impacted into place. The blade was then locked and the fracture was compressed. The outrigger was removed. Fluoroscopic images showed anatomic alignment of the fracture and the hardware. Attention was turned to the distal part of the nail. Perfect [place] technique was used and a single 38 mm locking screw was placed. Final pictures were taken. The wounds were then irrigated. The deep fascia was closed with #1 Vicryl. Skin was closed with 2-0 Vicryl and amy. She was then placed in a soft dressing. She was then transferred to a hospital bed and taken to the postanesthesia care unit in stable condition. She tolerated the procedure well. I attest to the content of the Intraoperative Record and any orders documented therein. Any exceptions are noted below.
[2018-12-17] MEDS ORDERED: NALOXONE HCL 0.4 MG/1 ML VIAL/CARP IV PRN (09:05)
--- NOTE | 2018-12-17 09:17 | Orthopedic Progress Note ---
Date of Service December 17, 2018 Assessment & Plan (1) Closed fracture of left hip: Maddy did very well with the procedure. She can be weightbearing as tolerated. She will get Ancef for 2 doses after the procedure. She will be on Lovenox 40 mg daily for 4 weeks for DVT prophylaxis. The dressings can be changed on postop day #2. She will get the amy out 2 weeks from the day of surgery. My office phone number is [phone]. All postoperative orders have already been placed in the discharge section. We will also place a cock-up wrist splint on her left hand. Her daughter, the power of fine hairer, was contacted after the procedure and made aware that she did well. Present on Admission?: Yes Subjective Maddy was taken to the operating room earlier this morning. She did very well with the procedure. There was not much blood loss. Her daughter was called postoperatively and made aware that she was doing well. She can be weightbearing as tolerated. She will be kept on postoperative antibiotic. I will start her on Lovenox 40 mg daily for 4 weeks for DVT prophylaxis. Physical Exam Musculoskeletal: On physical examination of the left hip, the dressings are clean and dry. Her leg lengths are equal. Results & Data Vital Signs (Past 12 Hours) Vital Signs Temp Pulse Resp BP Pulse Ox 12/17/18 05:44 63 186/62 H 12/17/18 05:26 61 189/65 H 12/17/18 04:15 37.2 C 63 16 180/53 H 91 12/17/18 01:22 177/66 H 12/17/18 00:35 37.0 C 75 15 181/62 H 93 PG Care Time/CCT Total # of Minutes Spent Total Time Spent with Patient: Total time spent is greater than 50% in coordination of care (as documented) at patient's floor/unit and/or counseling patient: (1) Closed fracture of left hip Encounter type: initial encounter Qualified Code(s): S72.002A - Fracture of unspecified part of neck of left femur, initial encounter for closed fracture
--- NOTE | 2018-12-17 09:29 | Fluoroscopy Report ---
FL hip LT 2-3V CLINICAL HISTORY: 83 years-old Female presenting with LT HIP FX. TECHNIQUE: 4 fluoroscopic image(s) recorded as part of an intraoperative procedure. COMPARISON: Plain radiographs and CT performed the previous day. FINDINGS/IMPRESSION: There has been interval intramedullary nail fixation across the basicervical left femoral neck fractu re. Interlocking intramedullary nail in the proximal metadiaphysis extending to the distal metaphysis . No malalignment. No periprosthetic fracture. Left femoral head remains congruent in the acetabulum. Please see surgical report for further details. Fluoroscopy dosage (mGy): 7.14. Fluoroscopy time: 66.1 seconds. Number or time of high level fluoroscopy (HLF), digital spot, or digital subtraction images: 0. Electronically signed by: Matt Saldaña M.D. 12/17/2018 9:28 AM
--- NOTE | 2018-12-17 09:43 | Anesthesiology Progress Note ---
Date of Service December 17, 2018 Anesthesia Post Procedure Vital Signs Vital Signs: Temp Pulse Pulse Resp BP BP Pulse Ox 12/17/18 09:30 65 19 130/58 L 96 12/17/18 09:20 66 23 122/63 96 12/17/18 09:10 68 19 128/59 L 96 12/17/18 09:03 99.0 F 68 16 126/69 96 12/17/18 05:44 63 186/62 H 12/17/18 05:26 61 189/65 H 12/17/18 04:15 99.0 F 63 16 180/53 H 91 12/17/18 01:22 177/66 H 12/17/18 00:35 98.6 F 75 15 181/62 H 93 12/16/18 15:32 99.1 F 64 16 144/69 H 92 12/16/18 11:39 73 20 146/73 H 93 12/16/18 09:53 63 16 174/95 H 97 Pain Intensity Left Hip: Pain Intensity: 5 Left Hand: Pain Intensity: 6 Transfer of Care Handoff Completed per policy Notes Mental Status: alert / awake / arousable and participated in evaluation Patient Amnestic to Procedure: Yes Nausea / Vomiting: adequately controlled Pain: adequately controlled Airway Patency, RR, SpO2: stable & adequate BP & HR: stable & adequate Hydration State: stable & adequate Neuraxial Anesthesia: was administered and sensory block is resolving Anesthetic Complications: no major complications apparent and Pt Satisfied with anesthetic care
--- NOTE | 2018-12-17 10:23 | XRay Report ---
XR hip LT min 2V CLINICAL HISTORY: 83 years-old Female presenting with Post-Operative implant position. TECHNIQUE: Frontal and crosstable lateral views of the left hip were obtained. COMPARISON: Plain radiographs from the previous day. FINDINGS: There has been interval intramedullary nail fixation across the basicervical left femoral neck fractu re with an interlocking intramedullary nail extending from the proximal metaphysis to the distal meta physis with a distal interlocking screw. No periprosthetic fracture or malalignment. The left hip carmelita nt remains congruent. Expected soft tissue emphysema and overlying skin amy. IMPRESSION: Expected postsurgical appearance status post internal fixation of the basicervical left femoral neck fracture. Electronically signed by: Matt Saldaña M.D. 12/17/2018 10:22 AM
[2018-12-17] MEDS ORDERED: NON-FORMULARY MEDICATION (Food Supplemt, Lactose-Reduced [Ensure] 1 EA) PO PRN (11:43)
[2018-12-17] MEDS ORDERED: ACETAMINOPHEN 325 MG TAB PO PRN (11:43)
[2018-12-17] MEDS ORDERED: SENNA 8.6 MG TAB PO PRN (11:43)
[2018-12-17] MEDS ORDERED: NITROGLYCERIN SL 0.4 MG/TAB TAB SL PRN (11:43)
[2018-12-17 13:13] LABS: Basophils # (auto) 0.01 K/uL (0-0.2); Basophils % (auto) 0.1 %; Eosinophils # (auto) 0.06 K/uL (0-0.5); Eosinophils % (auto) 0.6 %; Hematocrit (blood only) 27.6 % (37-47); Hemoglobin 9.1 g/dL (12.0-16.0); Immature Granulocytes # (auto) 0.03 K/uL (0.00-0.02); Immature Granulocytes % (auto) 0.3 %; Lymphocytes # (auto) 0.85 K/uL (1.2-3.4); Lymphocytes % (auto) 8.7 %; Mean Corpuscular Hemoglobin 30.7 pg (25-34); Mean Corpuscular Volume 93.2 fL (80-100); Mean Platelet Volume 10.6 fL (7.4-10.4); Monocytes # (auto) 0.85 K/uL (0.11-0.59); Monocytes % (auto) 8.7 %; Neutrophils # (auto) 7.95 K/uL (1.4-6.5); Neutrophils % (auto) 81.6 %; Platelet Count 185 K/uL (130-400); RDW Coefficient of Variation 14.3 % (11.5-14.5); RDW Standard Deviation 48.4 fL (36.4-46.3); Red Blood Count 2.96 M/uL (4.2-5.4); White Blood Count 9.75 K/uL (4.8-10.8)
--- NOTE | 2018-12-17 13:29 | Hospitalist Progress Note ---
Date of Service December 17, 2018 Assessment & Plan (1) Fall: (2) Closed fracture of left hip: This is an 83-year-old female who has a significant past medical history of vascular dementia, history of CAD, hx of CVA, PAF off anticoagulation secondary to fall, HTN, HLD, history of T2DM, CKD stage III, depression, GERD who presents to [facility] ED secondary to mechanical fall prior to arrival. CT L femur reveals: IMPRESSION: Acute impacted mildly displaced intertrochanteric fracture of the left femur. Status post intramedullary nail left hip on 12/17 Appreciate Ortho input and recommendation Management will be as per Ortho Not having any significant pain following surgery Decreased urine output following surgery Pickett has been putting Will give intravenous fluid Monitor urine output Discussed with POA Daughter Anette [phone] who is currently out of town. She agrees with above assessment and treatment plan. She is reachable by cellphone and would like contacted with updates. She confirms DNR/DNI (3) Fracture, metacarpal: L 4th and 5th metacarpal fx placed in L short arm cast 10/27/[address] Jj Cast still in place, recommendation was follow up xray in 7-10 days Appears pt has been lost to follow up obtain L hand xray orthopedics consulted for above fx; appreciate their recommendations regarding metacarpal fx as well Appreciate Ortho input and recommendation The Ortho has placed a cock-up wrist splint on her left hand. (4) Atrial fibrillation: Hx of PAF currently in NSR off OAC due to falls on ASA as outpt Heart rate remains controlled (5) Chronic ischemic heart disease: per daughter hx if balloon dilation back in 90s, no stent pt denies CP/SOB ECG reveals NSR, nonspec ST, T wave changes which are unchanged from prior ECG troponin WNL will obtain echocardiogram prior to surgical intervention Echocardiogram showed: The left ventricular wall motion is normal with EF of 60 to 65%, aortic valve sclerosis moderate without significant aortic valve stenosis (6) HTN (hypertension): blood pressure elevated in ED, likely secondary to pain Treat pain Continue amlodipine, monitor (7) History of CVA (cerebrovascular accident): 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 (9) Anemia: normocytic/normochromic likely of chronic disease H/H stable, follow (10) T2DM (type 2 diabetes mellitus): Per EPIC unknown A1C, last done 2015 5.7 will obtain A1C glucose on arrival 93 (11) Vascular dementia: mood stable monitor closely with use of narcotic (12) HLD (hyperlipidemia): continue statin (13) GERD (gastroesophageal reflux disease): continue PPI (14) DVT prophylaxis: SCD/TEDS for now Disposition: admit to med/surg Follow up: PCP Dr. Carrillo upon discharge along with appropriate orthopedic follow up Was updated by orthopedic surgeon We will keep in touch with Subjective 12/17 Patient was seen and examined in medical floor She is a status post left hip surgery He remains a little drowsy but otherwise denies any significant symptoms following surgery Review of Systems Review of Systems: All systems reviewed and are unremarkable except as noted below Constitutional: + fatigue and + weakness Musculoskeletal: + joint pain (Pain in the left hip) Physical Exam Physical Exam: Lying in bed comfortably Constitutional: + ill appearing and + thin; no acute distress Eyes: PERRL, conjunctivae normal, anicteric sclerae ENMT: external ear and nose normal, oropharynx normal Neck: trachea midline, no thyromegaly Respiratory: normal respiratory effort; no respiratory distress Auscultation: + diminished lung sounds (Mainly at the bases) Cardiovascular: Rate/Rhythm: regular rate and regular rhythm Heart Sounds: no murmur Gastrointestinal (Abdomen): Inspection/Auscultation: abdomen normal to inspection and normal bowel sounds Percussion/Palpation: abdomen soft; abdomen nontender Musculoskeletal: Left lower extremity movement is painful at the hip Neurologic: Remains drowsy following surgery Lymphatic: no cervical or axillary lymphadenopathy Results & Data Vital Signs (Past 12 Hours) Vital Signs Temp Pulse Pulse Resp BP Pulse Ox 12/17/18 13:10 37.2 C 75 16 165/70 H 95 12/17/18 12:05 37.1 C 74 16 148/67 H 95 12/17/18 11:35 37.1 C 78 16 143/65 H 95 12/17/18 10:30 70 20 139/64 93 12/17/18 10:20 70 20 147/62 H 93 12/17/18 10:10 70 20 146/67 H 93 12/17/18 10:00 70 20 137/67 93 12/17/18 09:50 70 21 141/64 H 94 12/17/18 09:40 71 21 130/63 94 12/17/18 09:30 65 19 130/58 L 96 12/17/18 09:20 66 23 122/63 96 12/17/18 09:10 68 19 128/59 L 96 12/17/18 09:03 37.2 C 68 16 126/69 96 12/17/18 05:44 63 186/62 H 12/17/18 05:26 61 189/65 H 12/17/18 04:15 37.2 C 63 16 180/53 H 91 12/17/18 01:22 177/66 H Laboratory Results Short CBC 12/17/18 Range/Units 12:58 WBC 9.75 (4.8-10.8) K/uL Hgb 9.1 L (12.0-16.0) g/dL Hct 27.6 L (37-47) % Plt Count 185 (130-400) K/uL Urine 12/17/18 Range/Units 06:15 Urine Color Yellow Urine Appearance Turbid A (Clear) Urine pH 7.5 (4.5-7.5) Ur Specific [place] 1.013 (1.000-1.030) Urine Protein 2+ H (Negative) Urine Glucose (UA) Negative (Negative) Medications Administered Current Inpatient Medications Acetaminophen (Tylenol) 650 mg PO QID [facility] Stop: 01/15/19 12:59 Last Admin: 12/16/18 21:30 Dose: 650 mg Documented by: Acetaminophen (Tylenol) 650 mg PO Q4H PRN PRN Reason: pain/fever Stop: 01/15/19 12:38 Al Hydrox/Mg Hydrox/Simethicone (Maalox) 30 ml PO Q6H PRN PRN Reason: Dyspepsia Stop: 01/15/19 12:38 Amlodipine Besylate (Norvasc) 10 mg PO DAILY [facility] Stop: 01/16/19 08:59 Atorvastatin Calcium (Lipitor) 40 mg PO DAILY [facility] Stop: 01/16/19 08:59 Bisacodyl (Dulcolax) [address] DAILY PRN PRN Reason: Constipation Stop: 01/15/19 12:38 Calcitriol (Rocaltrol) 0.25 mcg PO MoWeFr@0900 [facility] Stop: 01/17/19 08:59 Clonazepam (Klonopin) 0.25 mg PO HS [facility] Stop: 01/16/19 20:59 Docusate Sodium (Colace) 100 mg PO BID [facility] Stop: 01/16/19 20:59 Enoxaparin Sodium (Lovenox) 30 mg SQ Q24H [facility] Stop: 01/17/19 09:14 Escitalopram Oxalate (Lexapro Tab) 10 mg PO DAILY [facility] Stop: 01/16/19 08:59 Cefazolin Sodium (Ancef 1000mg) 1,000 mg in 7.5 mls @ 2.5 mls/min IV Q8H [facility]; Protocol Stop: 12/18/18 00:02 Sodium Chloride (Nss 1000ml) 1,000 mls @ 125 mls/hr IV .Q8H [facility] Stop: 12/18/18 13:14 Magnesium Hydroxide (Milk Of Magnesia) 30 ml PO DAILY PRN PRN Reason: Constipation Stop: 01/15/19 12:38 Magnesium Hydroxide (Milk Of Magnesia) 30 ml PO Q6H PRN PRN Reason: Constipation Stop: 01/15/19 12:38 Morphine Sulfate (Morphine Sulfate) 2 mg IV Q2H PRN PRN Reason: Severe Pain Stop: 12/30/18 12:38 Last Admin: 12/17/18 04:14 Dose: 2 mg Documented by: Naloxone HCl (Narcan) 0.1 mg IV UD PRN PRN Reason: Opiate Overdose Stop: 01/15/19 12:38 Nitroglycerin (Nitrostat) 0.4 mg SL UD PRN PRN Reason: Chest Pain Stop: 01/16/19 11:42 Ondansetron HCl (Zofran) 4 mg IV Q6H PRN PRN Reason: Nausea Stop: 01/15/19 12:38 Oxycodone HCl (Roxicodone Immediate Rel) 5 mg PO Q4H PRN PRN Reason: MODERATE Pain (Scale 4,5,6) Stop: 12/30/18 12:38 Pantoprazole Sodium (Protonix) 40 mg PO DAILY [facility] Stop: 01/16/19 08:59 Polyethylene Glycol (Miralax Powder Packet) 17 gm PO DAILY PRN PRN Reason: Constipation Stop: 01/15/19 12:38 Potassium Chloride (Klor-Con M20) 20 meq PO DAILY [facility] Stop: 01/16/19 08:59 Sennosides (Senokot) 8.6 mg PO HS PRN PRN Reason: Constipation Stop: 01/16/19 11:42 (1) Fall Encounter type: initial encounter Qualified Code(s): W19.XXXA - Unspecified fall, initial encounter (2) Closed fracture of left hip Encounter type: initial encounter Qualified Code(s): S72.002A - Fracture of unspecified part of neck of left femur, initial encounter for closed fracture
[2018-12-17 13:34] LABS: Albumin Level 2.7 gm/dl (3.4-5.0); BUN Creatinine Ratio 16.6 (10-20); Calcium 8.6 mg/dl (8.5-10.1); Est GFR (African American) 45.4; Est GFR (Non-African American) 39.2; Potassium 3.8 mmol/L (3.5-5.1)
[2018-12-17 13:37] LABS: Albumin Globulin Ratio 0.8 (0.9-2); Bilirubin,Total 0.4 mg/dl (0.2-1); Globulin 3.2 gm/dl (2.5-4.0); Total Protein 5.9 gm/dl (6.4-8.2)
[2018-12-17] MEDS: SODIUM CHLORIDE 0.9% 1000ML 1,000 ML IV SCH ×2 (13:40→20:42)
[2018-12-17] MEDS: POTASSIUM CHLORIDE 20 MEQ TABCR PO SCH (13:44)
[2018-12-17] MEDS: AMLODIPINE BESYLATE 5 MG TAB PO SCH (13:45)
[2018-12-17] MEDS: PANTOprazole 40 MG TAB PO SCH (13:45)
[2018-12-17] MEDS: ESCITALOPRAM OXALATE 10 MG TAB PO SCH (13:45)
[2018-12-17] MEDS: ACETAMINOPHEN 325 MG TAB PO SCH ×4 (13:45→20:41)
[2018-12-17] MEDS: ATORVASTATIN 40 MG TAB PO SCH (13:45)
[2018-12-17] MEDS: CEFAZOLIN 1000MG 1,000 MG/7.5 ML SYR IV SCH ×2 (15:38→23:54)
[2018-12-17] MEDS: DOCUSATE SODIUM 100 MG CAP PO SCH (20:41)
[2018-12-17] MEDS: clonazePAM 0.5 MG TAB PO SCH (20:42)
[2018-12-18] MEDS: SODIUM CHLORIDE 0.9% 1000ML 1,000 ML IV SCH (04:49)
[2018-12-18 05:47] LABS: Estimated Average Glucose 111 mg/dl; Hemoglobin A1C 5.5 % (4.5-5.6)
[2018-12-18 05:48] LABS: BUN Creatinine Ratio 14.9 (10-20); Calcium 8.4 mg/dl (8.5-10.1); Creatinine Clr Calc Pharmacy 28.5 ml/min; Est GFR (African American) 50.6; Est GFR (Non-African American) 43.7; Magnesium 1.8 mg/dl (1.8-2.4)
[2018-12-18 06:22] LABS: Basophils # (auto) 0.01 K/uL (0-0.2); Basophils % (auto) 0.1 %; Eosinophils # (auto) 0.07 K/uL (0-0.5); Eosinophils % (auto) 0.9 %; Hematocrit (blood only) 23.4 % (37-47); Hemoglobin 7.6 g/dL (12.0-16.0); Immature Granulocytes # (auto) 0.02 K/uL (0.00-0.02); Immature Granulocytes % (auto) 0.2 %; Lymphocytes # (auto) 0.93 K/uL (1.2-3.4); Lymphocytes % (auto) 11.4 %; Mean Corpuscular Hemoglobin 30.2 pg (25-34); Mean Corpuscular Volume 92.9 fL (80-100); Mean Platelet Volume 11.1 fL (7.4-10.4); Monocytes # (auto) 0.92 K/uL (0.11-0.59); Monocytes % (auto) 11.2 %; Neutrophils # (auto) 6.23 K/uL (1.4-6.5); Neutrophils % (auto) 76.2 %; Platelet Count 151 K/uL (130-400); RDW Coefficient of Variation 14.1 % (11.5-14.5); RDW Standard Deviation 48.2 fL (36.4-46.3); Red Blood Count 2.52 M/uL (4.2-5.4); White Blood Count 8.18 K/uL (4.8-10.8)
[2018-12-18 06:23] LABS: Mean Corpuscular Hgb Conc 32.5 g/dL (32-36)
[2018-12-18 06:42] LABS: RBC Morphology Unremarkable
--- NOTE | 2018-12-18 07:13 | Orthopedic Progress Note ---
Date of Service December 18, 2018 Assessment & Plan (1) Closed fracture of left hip: With regards to her left hip she is doing very well. She be up and ambulating today. I did tell her I will take a few months for her to get back to her normal ambulatory status. She will be on Lovenox 30 mg subcu daily for 4 weeks for DVT prophylaxis. The dressings can be changed tomorrow. She should follow-up with orthopedics in 2 weeks for staple removal. Our office phone number is [phone]. I talked to the nursing staff about applying a removable cock-up wrist splint to her left wrist. No further treatment is necessary to her left wrist at this time. The fractures are mostly healed. Orthopedic discharge instructions are in the discharge summary. Please call me personally if you have any questions regarding her care. My personal cell phone number is [phone]. Present on Admission?: Yes Subjective Maddy was seen and examined at bedside this morning. Overall she is doing fairly well. She was able to get some sleep last night. She has some soreness in her hip but is not as bad as it was yesterday. She is still complaining of some pain in her left hand. She has no other complaints. Physical Exam Musculoskeletal: On physical examination of her left hip, the dressings are clean and dry. There is no bleeding. Her leg lengths are equal. She is neurovascularly intact. Results & Data Vital Signs (Past 12 Hours) Vital Signs Temp Pulse Resp BP Pulse Ox 12/18/18 03:23 37.1 C 67 18 151/67 H 94 12/17/18 23:20 37.3 C 92 H 18 163/72 H 95 12/17/18 19:39 36.8 C 62 17 154/67 H 95 Diagnostic Findings Postoperative x-rays of the right hip show the prosthesis to be in anatomic alignment without any evidence of fracture, dislocation, or loosening. PG Care Time/CCT Total # of Minutes Spent Total Time Spent with Patient: Total time spent is greater than 50% in coordination of care (as documented) at patient's floor/unit and/or counseling patient: (1) Closed fracture of left hip Encounter type: initial encounter Qualified Code(s): S72.002A - Fracture of unspecified part of neck of left femur, initial encounter for closed fracture
[2018-12-18] MEDS ORDERED: CALCITRIOL 0.25 MCG CAPSULE PO SCH (09:00)
[2018-12-18] MEDS: AMLODIPINE BESYLATE 5 MG TAB PO SCH (10:11)
[2018-12-18] MEDS: ESCITALOPRAM OXALATE 10 MG TAB PO SCH (10:11)
[2018-12-18] MEDS: ACETAMINOPHEN 325 MG TAB PO SCH ×4 (10:11→20:43)
[2018-12-18] MEDS: PANTOprazole 40 MG TAB PO SCH (10:11)
[2018-12-18] MEDS: DOCUSATE SODIUM 100 MG CAP PO SCH ×2 (10:11→20:43)
[2018-12-18] MEDS: ATORVASTATIN 40 MG TAB PO SCH (10:11)
[2018-12-18] MEDS: ENOXAPARIN INJ 30 MG/0.3 ML SYR SQ SCH (10:12)
[2018-12-18] MEDS: POTASSIUM CHLORIDE 20 MEQ TABCR PO SCH (10:12)
--- NOTE | 2018-12-18 16:54 | Hospitalist Progress Note ---
Date of Service December 18, 2018 Assessment & Plan (1) Fall: (2) Closed fracture of left hip: This is an 83-year-old female who has a significant past medical history of vascular dementia, history of CAD, hx of CVA, PAF off anticoagulation secondary to fall, HTN, HLD, history of T2DM, CKD stage III, depression, GERD who presents to [facility] ED secondary to mechanical fall prior to arrival. CT L femur reveals: IMPRESSION: Acute impacted mildly displaced intertrochanteric fracture of the left femur. Status post intramedullary nail left hip on 12/17 Appreciate Ortho input and recommendation Management will be as per Ortho Not having any significant pain following surgery POD #1, denies any significant pain Management as per Ortho Continue PT OT Acute blood loss anemia in setting of femur fracture Hemoglobin is down to 7.6 from 10.3 on admission We will monitor hemoglobin May need blood transfusion if it falls below 7 Decreased urine output following surgery Pickett has been putting Will give intravenous fluid Monitor urine output Discussed with POA Daughter Anette [phone] who is currently out of town. She agrees with above assessment and treatment plan. She is reachable by cellphone and would like contacted with updates. She confirms DNR/DNI (3) Fracture, metacarpal: L 4th and 5th metacarpal fx placed in L short arm cast 10/27/[address] Jj Cast still in place, recommendation was follow up xray in 7-10 days Appears pt has been lost to follow up obtain L hand xray orthopedics consulted for above fx; appreciate their recommendations regarding metacarpal fx as well Appreciate Ortho input and recommendation The Ortho has placed a cock-up wrist splint on her left hand. (4) Atrial fibrillation: Hx of PAF currently in NSR off OAC due to falls on ASA as outpt Heart rate remains controlled (5) Chronic ischemic heart disease: per daughter hx if balloon dilation back in 90s, no stent pt denies CP/SOB ECG reveals NSR, nonspec ST, T wave changes which are unchanged from prior ECG troponin WNL will obtain echocardiogram prior to surgical intervention Echocardiogram showed: The left ventricular wall motion is normal with EF of 60 to 65%, aortic valve sclerosis moderate without significant aortic valve stenosis (6) HTN (hypertension): blood pressure elevated in ED, likely secondary to pain Treat pain Continue amlodipine, monitor (7) History of CVA (cerebrovascular accident): 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 (9) Anemia: normocytic/normochromic likely of chronic disease H/H stable, follow (10) T2DM (type 2 diabetes mellitus): Per [facility] unknown A1C, last done 2015 5.7 will obtain A1C glucose on arrival 93 (11) Vascular dementia: mood stable monitor closely with use of narcotic (12) HLD (hyperlipidemia): continue statin (13) GERD (gastroesophageal reflux disease): continue PPI (14) DVT prophylaxis: SCD/TEDS for now As per orthopedic PT/ OT evaluation Likely to be discharged in a day or 2 for short-term rehab Subjective 12/17 Patient was seen and examined in medical floor She is a status post left hip surgery He remains a little drowsy but otherwise denies any significant symptoms following surgery 12/18 Patient was seen and examined in medical floor She is out of bed on a chair and is status post POD #1 for left hip replacement Denies any symptoms at rest Review of Systems Review of Systems: All systems reviewed and are unremarkable except as noted below Constitutional: + fatigue and + weakness Musculoskeletal: + joint pain (Pain in the left hip) Physical Exam Physical Exam: No apparent distress at rest Constitutional: + ill appearing and + thin; no acute distress Eyes: PERRL, conjunctivae normal, anicteric sclerae ENMT: external ear and nose normal, oropharynx normal Neck: trachea midline, no thyromegaly Respiratory: normal respiratory effort; no respiratory distress Auscultation: + diminished lung sounds (Mainly at the bases) Cardiovascular: Rate/Rhythm: regular rate and regular rhythm Heart Sounds: no murmur Gastrointestinal (Abdomen): Inspection/Auscultation: abdomen normal to inspection and normal bowel sounds Percussion/Palpation: abdomen soft; abdomen nontender Musculoskeletal: Minimal pain on movement of the left hip Lymphatic: no cervical or axillary lymphadenopathy Results & Data Vital Signs (Past 12 Hours) Vital Signs Temp Pulse Pulse Resp BP Pulse Ox Pulse Ox 12/18/18 15:48 108 H 20 12/18/18 15:35 36.9 C 118 H 20 109/70 09/23/19 12:26 37.1 C 16 112/55 L 92 12/18/18 10:46 94 12/18/18 08:00 12/18/18 07:17 37.1 C 75 16 158/63 H 94 Pulse Ox Pulse Ox 12/18/18 15:48 12/18/18 15:35 12/18/18 12:26 12/18/18 10:46 87 L 12/18/18 08:00 95 12/18/18 07:17 Laboratory Results Short CBC 12/18/18 12/18/18 Range/Units 05:03 06:06 WBC Cancelled 8.18 Hgb Cancelled 7.6 L Hct Cancelled 23.4 L Plt Count Cancelled 151 BMP 12/18/18 05:03 Sodium 140 Potassium 4.0 Chloride 110 H Carbon Dioxide 22 BUN 17 Creatinine 1.17 Glucose 91 Calcium 8.4 L Medications Administered Current Inpatient Medications Acetaminophen (Tylenol) 650 mg PO QID [facility] Stop: 01/15/19 12:59 Last Admin: 12/18/18 18:19 Dose: 650 mg Documented by: Acetaminophen (Tylenol) 650 mg PO Q4H PRN PRN Reason: pain/fever Stop: 01/15/19 12:38 Al Hydrox/Mg Hydrox/Simethicone (Maalox) 30 ml PO Q6H PRN PRN Reason: Dyspepsia Stop: 01/15/19 12:38 Amlodipine Besylate (Norvasc) 10 mg PO DAILY [facility] Stop: 01/16/19 08:59 Last Admin: 12/18/18 10:11 Dose: 10 mg Documented by: Atorvastatin Calcium (Lipitor) 40 mg PO DAILY [facility] Stop: 01/16/19 08:59 Last Admin: 12/18/18 10:11 Dose: 40 mg Documented by: Bisacodyl (Dulcolax) 10 mg OK DAILY PRN PRN Reason: Constipation Stop: 01/15/19 12:38 Calcitriol (Rocaltrol) 0.25 mcg PO MoWeFr@0900 [facility] Stop: 01/17/19 08:59 Last Admin: 12/18/18 10:12 Dose: 0.25 mcg Documented by: Clonazepam (Klonopin) 0.25 mg PO HS [facility] Stop: 01/16/19 20:59 Last Admin: 12/17/18 20:42 Dose: 0.25 mg Documented by: Docusate Sodium (Colace) 100 mg PO BID [facility] Stop: 01/16/19 20:59 Last Admin: 12/18/18 10:11 Dose: 100 mg Documented by: Enoxaparin Sodium (Lovenox) 30 mg SQ Q24H [facility] Stop: 01/17/19 09:14 Last Admin: 12/18/18 10:12 Dose: 30 mg Documented by: Escitalopram Oxalate (Lexapro Tab) 10 mg PO DAILY [facility] Stop: 01/16/19 08:59 Last Admin: 12/18/18 10:11 Dose: 10 mg Documented by: Magnesium Hydroxide (Milk Of Magnesia) 30 ml PO DAILY PRN PRN Reason: Constipation Stop: 01/15/19 12:38 Magnesium Hydroxide (Milk Of Magnesia) 30 ml PO Q6H PRN PRN Reason: Constipation Stop: 01/15/19 12:38 Morphine Sulfate (Morphine Sulfate) 2 mg IV Q2H PRN PRN Reason: Severe Pain Stop: 12/30/18 12:38 Last Admin: 12/17/18 04:14 Dose: 2 mg Documented by: Naloxone HCl (Narcan) 0.1 mg IV UD PRN PRN Reason: Opiate Overdose Stop: 01/15/19 12:38 Nitroglycerin (Nitrostat) 0.4 mg SL UD PRN PRN Reason: Chest Pain Stop: 01/16/19 11:42 Ondansetron HCl (Zofran) 4 mg IV Q6H PRN PRN Reason: Nausea Stop: 01/15/19 12:38 Oxycodone HCl (Roxicodone Immediate Rel) 5 mg PO Q4H PRN PRN Reason: MODERATE Pain (Scale 4,5,6) Stop: 12/30/18 12:38 Pantoprazole Sodium (Protonix) 40 mg PO DAILY [facility] Stop: 01/16/19 08:59 Last Admin: 12/18/18 10:11 Dose: 40 mg Documented by: Polyethylene Glycol (Miralax Powder Packet) 17 gm PO DAILY PRN PRN Reason: Constipation Stop: 01/15/19 12:38 Potassium Chloride (Klor-Con M20) 20 meq PO DAILY [facility] Stop: 01/16/19 08:59 Last Admin: 12/18/18 10:12 Dose: 20 meq Documented by: Sennosides (Senokot) 8.6 mg PO HS PRN PRN Reason: Constipation Stop: 01/16/19 11:42 (1) Fall Encounter type: initial encounter Qualified Code(s): W19.XXXA - Unspecified fall, initial encounter (2) Closed fracture of left hip Encounter type: initial encounter Qualified Code(s): S72.002A - Fracture of unspecified part of neck of left femur, initial encounter for closed fracture
[2018-12-18] MEDS: clonazePAM 0.5 MG TAB PO SCH (20:44)
[2018-12-19 07:23] LABS: Basophils # (auto) 0.01 K/uL (0-0.2); Basophils % (auto) 0.1 %; Eosinophils # (auto) 0.06 K/uL (0-0.5); Eosinophils % (auto) 0.7 %; Hematocrit (blood only) 26.7 % (37-47); Hemoglobin 9.2 g/dL (12.0-16.0); Immature Granulocytes # (auto) 0.02 K/uL (0.00-0.02); Immature Granulocytes % (auto) 0.2 %; Lymphocytes # (auto) 0.88 K/uL (1.2-3.4); Mean Corpuscular Hemoglobin 31.7 pg (25-34); Mean Corpuscular Hgb Conc 34.5 g/dL (32-36); Mean Corpuscular Volume 92.1 fL (80-100); Mean Platelet Volume 11.7 fL (7.4-10.4); Neutrophils # (auto) 7.07 K/uL (1.4-6.5); Platelet Count 160 K/uL (130-400); RDW Coefficient of Variation 14.1 % (11.5-14.5); RDW Standard Deviation 47.8 fL (36.4-46.3); White Blood Count 8.84 K/uL (4.8-10.8)
[2018-12-19 08:01] LABS: BUN Creatinine Ratio 14.4 (10-20); Calcium 9.1 mg/dl (8.5-10.1); Creatinine Clr Calc Pharmacy 30.3 ml/min; Est GFR (African American) 54.5
[2018-12-19] MEDS: ESCITALOPRAM OXALATE 10 MG TAB PO SCH (09:56)
[2018-12-19] MEDS: POTASSIUM CHLORIDE 20 MEQ TABCR PO SCH (09:56)
[2018-12-19] MEDS: ATORVASTATIN 40 MG TAB PO SCH (09:56)
[2018-12-19] MEDS: PANTOprazole 40 MG TAB PO SCH (09:56)
[2018-12-19] MEDS: DOCUSATE SODIUM 100 MG CAP PO SCH (09:56)
[2018-12-19] MEDS: AMLODIPINE BESYLATE 5 MG TAB PO SCH (09:56)
[2018-12-19] MEDS: ACETAMINOPHEN 325 MG TAB PO SCH ×2 (09:57→13:37)
[2018-12-19] MEDS: ENOXAPARIN INJ 30 MG/0.3 ML SYR SQ SCH (09:57)
--- NOTE | 2018-12-19 11:21 | Hospitalist Progress Note ---
Date of Service December 19, 2018 Assessment & Plan (1) Fall: (2) Closed fracture of left hip: This is an 83-year-old female who has a significant past medical history of vascular dementia, history of CAD, hx of CVA, PAF off anticoagulation secondary to fall, HTN, HLD, history of T2DM, CKD stage III, depression, GERD who presents to [facility] ED secondary to mechanical fall prior to arrival. CT L femur reveals: IMPRESSION: Acute impacted mildly displaced intertrochanteric fracture of the left femur. Status post intramedullary nail left hip on 12/17 Appreciate Ortho input and recommendation Management will be as per Ortho Not having any significant pain following surgery POD #2, denies any significant pain Management as per Ortho Continue PT OT-recommended rehab With discharge to rehab this afternoon Acute blood loss anemia in setting of femur fracture Hemoglobin is down to 7.6 from 10.3 on admission We will monitor hemoglobin May need blood transfusion if it falls below 7 Decreased urine output following surgery Pickett has been putting Will give intravenous fluid Monitor urine output Discussed with POA Daughter Anette [phone] who is currently out of town. She agrees with above assessment and treatment plan. She is reachable by cellphone and would like contacted with updates. She confirms DNR/DNI (3) Fracture, metacarpal: L 4th and 5th metacarpal fx placed in L short arm cast 10/27/[address] Jj Cast still in place, recommendation was follow up xray in 7-10 days Appears pt has been lost to follow up obtain L hand xray orthopedics consulted for above fx; appreciate their recommendations regarding metacarpal fx as well Appreciate Ortho input and recommendation The Ortho has placed a cock-up wrist splint on her left hand. (4) Atrial fibrillation: Hx of PAF currently in NSR off OAC due to falls on ASA as outpt Heart rate remains controlled (5) Chronic ischemic heart disease: per daughter hx if balloon dilation back in 90s, no stent pt denies CP/SOB ECG reveals NSR, nonspec ST, T wave changes which are unchanged from prior ECG troponin WNL will obtain echocardiogram prior to surgical intervention Echocardiogram showed: The left ventricular wall motion is normal with EF of 60 to 65%, aortic valve sclerosis moderate without significant aortic valve stenosis Denies any acute symptoms (6) HTN (hypertension): blood pressure elevated in ED, likely secondary to pain Treat pain Continue amlodipine, monitor (7) History of CVA (cerebrovascular accident): 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-creatinine is normal today 12/19 (9) Anemia: normocytic/normochromic likely of chronic disease H/H stable, follow (10) T2DM (type 2 diabetes mellitus): Per [facility] unknown A1C, last done 2015 5.7 will obtain A1C glucose on arrival 93 (11) Vascular dementia: mood stable monitor closely with use of narcotic (12) HLD (hyperlipidemia): continue statin (13) GERD (gastroesophageal reflux disease): continue PPI (14) DVT prophylaxis: SCD/TEDS for now As per orthopedic PT/ OT evaluation Will be discharged today Subjective 12/17 Patient was seen and examined in medical floor She is a status post left hip surgery He remains a little drowsy but otherwise denies any significant symptoms following surgery 12/18 Patient was seen and examined in medical floor She is out of bed on a chair and is status post POD #1 for left hip replacement Denies any symptoms at rest 12/19 Patient was seen and examined in medical floor She has been feeling a lot better and she is out of bed on a chair without any symptoms She has been getting physical therapy and ready to be discharged to rehab facility Denies any other symptoms Review of Systems Review of Systems: All systems reviewed and are unremarkable except as noted below Constitutional: + fatigue and + weakness Cardiovascular: no chest pain Musculoskeletal: + joint pain (Pain in the left hip with activity) Physical Exam Physical Exam: Sitting in a chair without any distress Constitutional: + ill appearing and + thin; no acute distress Eyes: PERRL, conjunctivae normal, anicteric sclerae ENMT: external ear and nose normal, oropharynx normal Neck: trachea midline, no thyromegaly Respiratory: normal respiratory effort; no respiratory distress Auscultation: + diminished lung sounds (Mainly at the bases) Cardiovascular: Rate/Rhythm: regular rate and regular rhythm Heart Sounds: no murmur Gastrointestinal (Abdomen): Inspection/Auscultation: abdomen normal to inspection and normal bowel sounds Percussion/Palpation: abdomen soft; abdomen nontender Musculoskeletal: Hip: + limited ROM of hip (With pain) Lymphatic: no cervical or axillary lymphadenopathy Results & Data Vital Signs (Past 12 Hours) Vital Signs Temp Pulse Resp BP Pulse Ox 12/19/18 11:17 37 C 93 H 20 126/60 93 12/19/18 07:45 37.1 C 72 24 150/80 H 92 (1) Fall Encounter type: initial encounter Qualified Code(s): W19.XXXA - Unspecified fall, initial encounter (2) Closed fracture of left hip Encounter type: initial encounter Qualified Code(s): S72.002A - Fracture of unspecified part of neck of left femur, initial encounter for closed fracture
--- NOTE | 2018-12-19 19:01 | Discharge Summary ---
Date of Service December 19, 2018 Admission HPI Per Admitting Provider This is an 83-year-old female who has a significant past medical history of vascular dementia, history of CAD, hx of CVA, PAF off anticoagulation secondary to fall, HTN, HLD, history of T2DM, CKD stage III, depression, GERD who presents to [facility] ED secondary to mechanical fall prior to arrival. Pt resides at [facility]. Pt recalls falling, but does not remember why. Denies LOC or syncope. Hx unreliable given hx of dementia. Per nurse at [facility], pt was found at side of bed with underwear around ankles laying on her left side. Pt unable to get up on own. Fall was unwitnessed, but thought was she was trying to get up to go to bathroom on own and fell. No other apparent injuries, hitting of head or LOC reported. Pt has been having increased falls. Fell 10/24 in which injured her L hand. Pt has short arm cast secondary to L 4th and 5th metacarpal fx; following Dr. Jj. Pt feels okay at moment w/o acute complaint. Denies pain to L leg or hand. Denies recent illness, f/c/s, dizziness, chest pain, SEGOVIA, SOB, cough, palpitations, n/v/d, dysuria, increased urg/freq with urination, constipation, melena, hematochezia. Appetite normal. Denies weight loss or gain. Per [facility] and daughter pt with minimal ambulation at baseline. Mostly uses wheel chair. Can ambulate with walker short distances. Past surgical hx, FH, SH obtained from daughter and [facility]. Admission Exam Per Admitting Provider Physical Exam: Constitutional: WD/WN, elderly, F, vitals as above, NAD, sitting up in bed, pleasantly confused, conversing easily Head: Normocephalic, Atraumatic Eyes: PERRL, conjunctivae normal, anicteric sclerae ENMT: external ear and nose normal, oropharynx normal Neck: trachea midline, no thyromegaly normal visual inspection Respiratory: normal respiratory effort, lungs clear to auscultation, no wheeze, rales, rhonchi. Normal insp/exp effort, no accessory muscle use Cardiovascular: RRR, 1/6 WONG best noted cardiac base, no edema Vessels: no JVD or carotid bruit Chest: normal inspection of chest Abdomen: normal bowel sounds, soft, nontender, no hepatosplenomegaly Musculoskeletal: no cyanosis or clubbing, L leg shortening with internal rotation. LLE strength not assessed given concern for fx. All other extremities motor strength 4/5 Skin: no rashes, warm normal turgor Neurologic: PERRL, EOMI, accommodation nl, no face palsy, no dysarthria CN's II-XI intact bilaterally and moves all extremities Psychiatric: A+O to self, euthymic affect Lymphatic: no cervical or axillary lymphadenopathy : deferred Principal Diagnosis Left intertrochanteric femur fracture status post intramedullary nail placement on 12/17, history of left metacarpal fracture, atrial fibrillation, chronic ischemic heart disease, hypertension, type 2 diabetes, vascular dementia Discharge Exam Constitutional + ill appearing and + thin; no acute distress Eyes PERRL, conjunctivae normal, anicteric sclerae ENMT external ear and nose normal, oropharynx normal Neck trachea midline, no thyromegaly Respiratory normal respiratory effort; no respiratory distress Auscultation: + diminished lung sounds (Mainly at the bases) Cardiovascular Rate/Rhythm: regular rate and regular rhythm Heart Sounds: no murmur Gastrointestinal (Abdomen) Inspection/Auscultation: abdomen normal to inspection and normal bowel sounds Percussion/Palpation: abdomen soft; abdomen nontender Musculoskeletal Hip: + limited ROM of hip (With pain) Lymphatic no cervical or axillary lymphadenopathy Discharge Data Allergies Allergy/AdvReac Type Severity Reaction Status Date / Time No Known Allergies Allergy . Verified 12/16/18 09:09 Consultations 12/16/18 10:02 ED Decision to Admit Stat 12/16/18 10:56 Consult Anesthesiology Routine Consult Orthopedic Surgery Routine 12/16/18 12:39 Consult Case Management - Discharge Planning Routine Consult Case Management - Discharge Planning Routine 12/17/18 09:05 Consult Case Management - Discharge Planning Routine Procedures Performed Operation Date: 12/17/18 07:30 Actual Procedures p Intramedullary Nail Left Hip(Left) - Oumar Kinney, Ordered Studies 12/16/18 07:58 CT cervical spine wo con Stat CT head/brain wo con Stat 12/16/18 10:31 CT femur LT wo con Urgent 12/17/18 07:00 FL fluoroscopy <1hr Routine FL hip LT 2-3V Routine Hospital Course (1) Fall: (2) Closed fracture of left hip: This is an 83-year-old female who has a significant past medical history of vascular dementia, history of CAD, hx of CVA, PAF off anticoagulation secondary to fall, HTN, HLD, history of T2DM, CKD stage III, depression, GERD who presents to [facility] ED secondary to mechanical fall prior to arrival. CT L femur reveals: IMPRESSION: Acute impacted mildly displaced intertrochanteric fracture of the left femur. Status post intramedullary nail left hip on 12/17 Appreciate Ortho input and recommendation Management will be as per Ortho Not having any significant pain following surgery POD #2, denies any significant pain Management as per Ortho Continue PT OT-recommended rehab With discharge to rehab this afternoon Acute blood loss anemia in setting of femur fracture Hemoglobin is down to 7.6 from 10.3 on admission We will monitor hemoglobin May need blood transfusion if it falls below 7 Decreased urine output following surgery [place] has been putting Will give intravenous fluid Monitor urine output Discussed with POA Daughter Anette [phone] who is currently out of town. She agrees with above assessment and treatment plan. She is reachable by cellphone and would like contacted with updates. She confirms DNR/DNI (3) Fracture, metacarpal: L 4th and 5th metacarpal fx placed in L short arm cast 10/27/[address] Jj Cast still in place, recommendation was follow up xray in 7-10 days Appears pt has been lost to follow up obtain L hand xray orthopedics consulted for above fx; appreciate their recommendations regarding metacarpal fx as well Appreciate Ortho input and recommendation The Ortho has placed a cock-up wrist splint on her left hand. (4) Atrial fibrillation: Hx of PAF currently in NSR off OAC due to falls on ASA as outpt Heart rate remains controlled (5) Chronic ischemic heart disease: per daughter hx if balloon dilation back in 90s, no stent pt denies CP/SOB ECG reveals NSR, nonspec ST, T wave changes which are unchanged from prior ECG troponin WNL will obtain echocardiogram prior to surgical intervention Echocardiogram showed: The left ventricular wall motion is normal with EF of 60 to 65%, aortic valve sclerosis moderate without significant aortic valve stenos is Denies any acute symptoms (6) HTN (hypertension): blood pressure elevated in ED, likely secondary to pain Treat pain Continue amlodipine, monitor (7) History of CVA (cerebrovascular accident): 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-creatinine is normal today 12/19 (9) Anemia: normocytic/normochromic likely of chronic disease H/H stable, follow (10) T2DM (type 2 diabetes mellitus): Per [facility] unknown A1C, last done 2015 5.7 will obtain A1C glucose on arrival 93 (11) Vascular dementia: mood stable monitor closely with use of narcotic (12) HLD (hyperlipidemia): continue statin (13) GERD (gastroesophageal reflux disease): continue PPI (14) DVT prophylaxis: SCD/TEDS for now As per orthopedic PT/ OT evaluation Will be discharged today Total Time Total Time Spent Total Time Spent (In Minutes): 35 MINUTES Total Time Includes: Examination of the Patient, Discharge Planning, Medication Reconciliation and Communication With Other Providers Discharge Plan Discharge Items Patient Disposition: Transfer Long-Term Fac Reason For Visit: L INTERTROCH FEMUR FX Discharge Diagnosis: Left intertrochanteric femur fracture status post intramedullary nail placement on 12/17, history of left metacarpal fracture, atrial fibrillation, chronic ischemic heart disease, hypertension, type 2 diabetes, vascular dementia Condition on Discharge: Good Activity: Resume your previous activity Non-emergency contact: Primary Care Provider Call non-emergency contact if: you have any medication questions and your symptoms worsen Follow-up/Referrals: PCP,NO [Primary Care Provider] - Diet: Carb Consistent or DM2 and Heart Healthy Addtl Attending Provider Instructions: She did not require any narcotics pain medication so will not be given any at discharge Also she has been pleasantly confused at her baseline. Pain control is with nonnarcotic analgesics ORTHOPEDIC INSTRUCTIONS Hip Fracture Activity and Therapy Recommendations: 1. You were shown a series of exercises in the hospital. Do these exercises three times each day if you are able. 2. Get up and walk several times each day if you are capable. Make sure you have assistance is needed. For the first four weeks, try not to stand or walk for more than one hour at a time. If you do stand or walk for more than one hour, you will not hurt anything, but your leg will likely swell. 3. As you feel comfortable, you may change from the walker or crutches to a cane and then to independent walking if you are able. Please be safe. Medications: 1. Narcotic You will likely be sent from the hospital with the narcotic pain medication that worked best throughout your stay. 2. Lovenox You will likely be required to take Lovenox daily for 4 weeks after discharge from the hospital 3. Other medications may be given for specific circumstances. If you have any questions, please call the office at [phone]. 4. Resume previous home medications unless otherwise instructed TEDs/Elastic Stockings: The white elastic stockings help limit swelling and prevent blood clots from forming in your legs. The more you wear them, the more they work. Wear them for six weeks. Dressing Care: [place] can be open to air as long as the incisions are not draining. If the incisions are draining or if the amy are getting caught on your clothes then please cover the amy with dry gauze. Change the dressings as necessary to keep the incision as dry as possible Showering: You may shower 5 days from the day of surgery as long as the incisions are not draining. Do not soak the incision. Let soapy water run over the amy and pat them dry. Things To Watch For: 1. Drainage from the incision site that occurs more than one week after your surgery. 2. Increased redness at the incision site. 3. Fever above 102 degrees Fahrenheit. 4. Unusual chest pain or shortness of breath. 5. Call [facility] at with any of the above problems Follow-Up Visit: Follow-up with Dr. Kinney 2 weeks after your day of surgery. Please call to make an appointment or be sure your rehab facility has made one. If you have any questions call Pending Studies at Discharge: No Stand-Alone Forms: My [facility] Skilled Items Patient informed of condition?: Yes DNR: Yes Discharge Level of Care: Skilled Communicable Disease: No Discharge Prognosis: Stable Lines: None Urinary Catheter: No Medications and DC Order Prescriptions: New enoxaparin [Lovenox] 30 mg/0.3 mL Syringe 30 mg subcut Q24H 26 Days Qty: 26 RF: 0 cephalexin 250 mg Capsule 250 mg PO TID 5 Days Qty: 15 RF: 0 Continued amlodipine 10 mg Tablet 10 mg PO DAILY RF: 0 aspirin 81 mg Tablet,Chewable 81 mg PO BID RF: 0 atorvastatin 40 mg Tablet 40 mg PO DAILY RF: 0 calcitriol 0.25 mcg Capsule 0.25 mcg PO MOWEFR RF: 0 docusate sodium 100 mg Capsule 100 mg PO BID RF: 0 escitalopram oxalate 10 mg Tablet 10 mg PO DAILY RF: 0 omeprazole 20 mg Capsule,Delayed Release(Dr/Ec) 20 mg PO DAILY RF: 0 potassium chloride 20 mEq Tablet Extended Release 20 meq PO DAILY RF: 0 sennosides [Senexon] 8.6 mg Tablet 8.6 mg PO HS PRN (Reason: Constipation) RF: 0 nitroglycerin [Nitrostat] 0.4 mg Tablet, Sublingual 0.4 mg Sublingual DIRECTED PRN (Reason: Chest Pain) RF: 0 acetaminophen 325 mg Tablet 325 mg PO Q4H PRN (Reason: Pain) RF: 0 Ensure Liquid 1 ea PO TID PRN (Reason: supplement) RF: 0 clonazepam 0.25 mg Tablet,Disintegrating 0.25 mg PO HS RF: 0 Discharge Orders: Discharge Order (Routine); Ordered 12/19/18 Ordered By: Alphonso Gao Admission Data Admit Date/Time: 12/16/18 10:56 Attending Provider: Alphonso Gao Admit Provider: Alphonso Gao Primary Care Provider: PCP,NO Other Providers: Alphonso Gao ; Matthieu Salazar ; Oumar Kinney Other Interventions: Discharge Summary Assessment (RN) Last Done: 12/19/18 14:16 DC Date/Time DO NOT enter until pt leaves facility: 12/19/18 16:09
[2018-12-19] MEDS ORDERED: cephALEXin 250 MG CAP PO SCH (21:00)
== END 2018-12-19 16:09 | DRG 481 ==
LOC: ED 07:48 → 3N 10:56

== ENCOUNTER 2019-04-12 11:53 | Inpatient (IN) ==
--- NOTE | 2019-04-12 13:03 | Emergency Department Note ---
Entered by Leann Esteves acting as a scribe for Panchito Flores DO History of Present Illness General Chief complaint: Shortness of Breath/Dyspnea Stated complaint: SOB Time Seen by Provider: 04/12/19 12:28 Source: patient Limitations: altered mental status History of Present Illness Provider complaint: Shortness of Breath/Dyspnea Onset (ago): day(s) 1 Location: chest Maximum Pain Intensity: 4 Associated symptoms: + chest pain The patient is a 83 year old female who presents to the Emergency Room with complaints of shortness of breath/dyspnea that began this morning. The patient reports experiencing occasional chest pain. According to those who know the patient the patient was having multiple episodes of difficulty breathing and became tachypneic but it resolved without intervention. HPI and ROS limited secondary to altered mental status. Home Medications Home Medications Medication Instructions Recorded Confirmed Type amlodipine 10 mg PO QPM 01/21/18 04/12/19 History aspirin 81 mg PO DAILY 01/21/18 04/12/19 History atorvastatin [Lipitor] 40 mg PO HS 01/21/18 04/12/19 History calcitriol [Rocaltrol] 0.25 mcg PO MOWEFR 01/21/18 04/12/19 History docusate sodium [Colace] 100 mg PO BID 01/21/18 04/12/19 History escitalopram oxalate [Lexapro] 10 mg PO QPM 01/21/18 04/12/19 History nitroglycerin [Nitrostat] 0.4 mg SUBLINGUAL UD PRN 01/21/18 04/12/19 History omeprazole 20 mg PO QPM 01/21/18 04/12/19 History potassium chloride [K-Tab] 20 meq PO DAILY 01/21/18 04/12/19 History acetaminophen [Tylenol] 650 mg PO QID PRN 12/16/18 04/12/19 History clonazepam 0.25 mg PO HS 12/16/18 04/12/19 History cholecalciferol (vitamin D3) 2,000 unit PO QPM 04/12/19 04/12/19 History [Vitamin D3] ferrous sulfate [Iron (ferrous 325 mg PO BID 04/12/19 04/12/19 History sulfate)] sennosides [senna] 8.6 mg PO HS 04/12/19 04/12/19 History Allergies Allergy/AdvReac Type Severity Reaction Status Date / Time No Known Allergies Allergy . 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) Chronic kidney disease stage 3 (Chronic 11/23/10) Chronic otitis externa (Chronic 11/23/10) GERD (gastroesophageal reflux disease) (Chronic) History of CVA (cerebrovascular accident) (Chronic) HLD (hyperlipidemia) (Chronic) HTN (hypertension) HTN (hypertension) T2DM (type 2 diabetes mellitus) (Chronic) Vascular dementia (Chronic) Surgical History History of appendectomy (Chronic) History of coronary artery balloon dilation (Chronic) 1994 History of partial hysterectomy (Chronic) Family History Father Stroke Mother Stroke Other Family history non-contributory Social History Preferred Language: Citizen Of [place] Communication Ability: Effective Beliefs That Will Affect Care: None marital status: / Current Living Situation[facility] Current Living Situation Comment: [facility] current occupational status: retired Feels Safe at Home: Yes Smoking Status: Never smoker Hx Alcohol Use: Yes Alcohol Intake Frequency: Holidays/Special Occasions Hx Substance Use: No Review of Systems HPI and ROS limited secondary to altered mental status. Physical Exam Vital Signs Vital Signs - 24 hr 04/12/19 11:59 04/12/19 12:28 04/12/19 12:53 Temperature 36.5 C Temperature Source Oral Pulse Rate 117 H Pulse Rate [Apical] 103 H Pulse Rate from SpO2 Sensor Pulse Rhythm [Apical] Respiratory Rate 20 23 Respiratory Effort / Characteristics Non-Labored Spontaneous Respiratory Depth Normal Respiratory Pattern Regular Blood Pressure 152/103 H Blood Pressure [Right Arm] 148/90 H Blood Pressure Mean 119 Blood Pressure Mean [Right Arm] 109 Blood Pressure Position [Right Arm] Sitting Pulse Oximetry 93 93 95 Oxygen Delivery Method Room Air Room Air Room Air Oxygen Flow Rate Sepsis Recent Fever Within 48 Hours No Sepsis New/Unexplained Change in Mental Status No Sepsis Action Taken by Nursing No Action Required 04/12/19 13:31 04/12/19 14:00 04/12/19 14:30 Temperature Temperature Source Pulse Rate 127 H 122 H Pulse Rate [Apical] 111 H Pulse Rate from SpO2 Sensor Pulse Rhythm [Apical] Respiratory Rate 20 Respiratory Effort / Characteristics Respiratory Depth Respiratory Pattern Blood Pressure Blood Pressure [Right Arm] 115/74 Blood Pressure Mean Blood Pressure Mean [Right Arm] 87 Blood Pressure Position [Right Arm] Pulse Oximetry 92 Oxygen Delivery Method Room Air Oxygen Flow Rate Sepsis Recent Fever Within 48 Hours Sepsis New/Unexplained Change in Mental Status Sepsis Action Taken by Nursing 04/12/19 14:43 04/12/19 14:44 04/12/19 15:00 Temperature Temperature Source Pulse Rate 114 H 127 H Pulse Rate [Apical] 117 H Pulse Rate from SpO2 Sensor 129 H Pulse Rhythm [Apical] Respiratory Rate 22 21 Respiratory Effort / Characteristics Respiratory Depth Respiratory Pattern Blood Pressure 122/78 Blood Pressure [Right Arm] 122/78 Blood Pressure Mean 90 Blood Pressure Mean [Right Arm] 92 Blood Pressure Position [Right Arm] Pulse Oximetry 96 96 Oxygen Delivery Method Room Air Oxygen Flow Rate 78 Sepsis Recent Fever Within 48 Hours Sepsis New/Unexplained Change in Mental Status Sepsis Action Taken by Nursing 04/12/19 15:16 04/12/19 15:30 04/12/19 15:31 Temperature Temperature Source Pulse Rate 116 H 126 H 123 H Pulse Rate [Apical] Pulse Rate from SpO2 Sensor 117 H Pulse Rhythm [Apical] Respiratory Rate 24 Respiratory Effort / Characteristics Respiratory Depth Respiratory Pattern Blood Pressure 139/74 Blood Pressure [Right Arm] Blood Pressure Mean 101 110 Blood Pressure Mean [Right Arm] Blood Pressure Position [Right Arm] Pulse Oximetry 94 Oxygen Delivery Method Oxygen Flow Rate Sepsis Recent Fever Within 48 Hours Sepsis New/Unexplained Change in Mental Status Sepsis Action Taken by Nursing 04/12/19 16:00 04/12/19 16:01 04/12/19 16:30 Temperature Temperature Source Pulse Rate 121 H 112 H 118 H Pulse Rate [Apical] Pulse Rate from SpO2 Sensor Pulse Rhythm [Apical] Respiratory Rate 22 23 23 Respiratory Effort / Characteristics Respiratory Depth Respiratory Pattern Blood Pressure 122/100 139/97 Blood Pressure [Right Arm] Blood Pressure Mean 104 112 Blood Pressure Mean [Right Arm] Blood Pressure Position [Right Arm] Pulse Oximetry 94 Oxygen Delivery Method Oxygen Flow Rate Sepsis Recent Fever Within 48 Hours Sepsis New/Unexplained Change in Mental Status Sepsis Action Taken by Nursing 04/12/19 17:00 04/12/19 17:01 04/12/19 17:09 Temperature Temperature Source Pulse Rate 145 H 115 H Pulse Rate [Apical] Pulse Rate from SpO2 Sensor 102 H 145 H 125 H Pulse Rhythm [Apical] Respiratory Rate 23 24 Respiratory Effort / Characteristics Respiratory Depth Respiratory Pattern Blood Pressure 146/81 H 146/87 H Blood Pressure [Right Arm] Blood Pressure Mean 105 114 Blood Pressure Mean [Right Arm] Blood Pressure Position [Right Arm] Pulse Oximetry 90 Oxygen Delivery Method Oxygen Flow Rate Sepsis Recent Fever Within 48 Hours Sepsis New/Unexplained Change in Mental Status Sepsis Action Taken by Nursing 04/12/19 17:10 04/12/19 17:30 04/12/19 17:31 Temperature Temperature Source Pulse Rate 99 H 97 H Pulse Rate [Apical] 125 H Pulse Rate from SpO2 Sensor 118 H 105 H Pulse Rhythm [Apical] Irregular Respiratory Rate 22 Respiratory Effort / Characteristics Non-Labored Spontaneous Respiratory Depth Normal Respiratory Pattern Regular Blood Pressure 125/103 H Blood Pressure [Right Arm] 146/87 H Blood Pressure Mean 114 Blood Pressure Mean [Right Arm] 106 Blood Pressure Position [Right Arm] Pulse Oximetry 90 94 Oxygen Delivery Method Room Air Oxygen Flow Rate Sepsis Recent Fever Within 48 Hours Sepsis New/Unexplained Change in Mental Status Sepsis Action Taken by Nursing 04/12/19 18:00 04/12/19 18:01 04/12/19 18:30 Temperature Temperature Source Pulse Rate 103 H 120 H 93 H Pulse Rate [Apical] Pulse Rate from SpO2 Sensor 101 H 115 H 98 H Pulse Rhythm [Apical] Respiratory Rate 24 24 Respiratory Effort / Characteristics Respiratory Depth Respiratory Pattern Blood Pressure 132/104 H 114/73 Blood Pressure [Right Arm] Blood Pressure Mean 111 79 Blood Pressure Mean [Right Arm] Blood Pressure Position [Right Arm] Pulse Oximetry 94 96 93 Oxygen Delivery Method Oxygen Flow Rate Sepsis Recent Fever Within 48 Hours Sepsis New/Unexplained Change in Mental Status Sepsis Action Taken by Nursing 04/12/19 18:31 Temperature Temperature Source Pulse Rate 104 H Pulse Rate [Apical] Pulse Rate from SpO2 Sensor 114 H Pulse Rhythm [Apical] Respiratory Rate 23 Respiratory Effort / Characteristics Respiratory Depth Respiratory Pattern Blood Pressure Blood Pressure [Right Arm] Blood Pressure Mean Blood Pressure Mean [Right Arm] Blood Pressure Position [Right Arm] Pulse Oximetry 94 Oxygen Delivery Method Oxygen Flow Rate Sepsis Recent Fever Within 48 Hours Sepsis New/Unexplained Change in Mental Status Sepsis Action Taken by Nursing GENERAL: Patient is awake alert in no acute distress patient is resting comfortably and showing no signs of anxiety EYES: The conjunctivae are clear. The pupils are round and reactive. EARS, NOSE, MOUTH AND THROAT: The nose is without any evidence of any deformity. Mucous membranes are moist. Tongue is midline. NECK: The neck is nontender and supple. RESPIRATORY: Diminished breath sounds are noted at the left base. There were rales at the right base. There is no tachypnea or conversational dyspnea. CARDIOVASCULAR: Tachycardic and irregular rhythm was noted to auscultation. There is no definite murmur. GASTROINTESTINAL: The abdomen is soft. Abdomen is nontender. MUSCULOSKELETAL/EXTREMITIES: There is no evidence of gross deformity full range of motion is noted in the hips and shoulders. SKIN: There is no obvious evidence of any rash. Trace pedal edema was noted bilaterally. NEUROLOGIC: Patient is awake alert and oriented to person place but not time or situation. Strength was symmetric. Course Course 1238: Past medical records reviewed. The patient was evaluated in room B06. A complete history and physical exam was performed. 1724: I spoke with Dr. Michelle Chris- Hospitalist about the patient's case and she will accept the patient for further evaluation. Administered Medications Discontinued Medications Diltiazem HCl (Cardizem) 10 mg IV NOW STA Stop: 04/12/19 17:06 Last Admin: 04/12/19 17:09 Dose: 10 mg Documented by: [id number] Cosigned by: [id number] Furosemide (Lasix) 40 mg IV NOW STA Stop: 04/12/19 14:08 Last Admin: 04/12/19 14:45 Dose: 40 mg Documented by: [id number] Medical Decision Making Differential Diagnosis Differential diagnosis: Etiologies such as infections, reactive airway disease, COPD, pneumonia, pleural effusion, pulmonary edema, ARDS, pneumothorax, CHF, cardiac ischemia, cardiac tamponade, dysrhythmia, anemia, pulmonary embolism, musculoskeletal, gastrointestinal process, as well as others were entertained. Medical Records Attestation: I reviewed the patient's medical records. Home Medications Current Medication List: was personally reviewed by me Laboratory Data Attestation: I reviewed the patient's lab results. Result diagrams: 04/12/19 14:17 04/12/19 14:17 Lab Results 04/12/19 04/12/19 04/12/19 Range/Units 14:17 14:17 14:17 WBC 5.59 (4.8-10.8) K/uL RBC 3.46 L (4.2-5.4) M/uL Hgb 11.5 L (12.0-16.0) g/dL Hct 34.1 L (37-47) % MCV 98.6 (80-100) fL MCH 33.2 (25-34) pg MCHC 33.7 (32-36) g/dL RDW Std Deviation 54.8 H (36.4-46.3) fL RDW Coeff of Chapo 15.3 H (11.5-14.5) % Plt Count 161 (130-400) K/uL MPV 11.5 H (7.4-10.4) fL Immature Gran % (Auto) 0.2 % Neut % (Auto) 58.9 % Lymph % (Auto) 26.3 % [place] % (Auto) 8.4 % Eos % (Auto) 5.7 % Baso % (Auto) 0.5 % Immature Gran # (Auto) 0.01 (0.00-0.02) K/uL Neut # (Auto) 3.29 (1.4-6.5) K/uL Lymph # (Auto) 1.47 (1.2-3.4) K/uL [place] # (Auto) 0.47 (0.11-0.59) K/uL Eos # (Auto) 0.32 (0-0.5) K/uL Baso # (Auto) 0.03 (0-0.2) K/uL PT Cancelled INR Cancelled APTT Cancelled PTT Ratio Cancelled Sodium 141 (136-145) mmol/L Potassium 4.4 (3.5-5.1) mmol/L Chloride 114 H (98-107) mmol/L Carbon Dioxide 23 (21-32) mmol/L Anion Gap 4.0 (3-11) BUN 20 H (7-18) mg/dl Creatinine 1.14 (0.6-1.2) mg/dl Est Cr Clr Drug Dosing 30.6 ml/min Est GFR ( Amer) 52.2 Est GFR (Non-Af Amer) 45.1 BUN/Creatinine Ratio 17.4 (10-20) Glucose 89 (70-99) mg/dl Calcium 9.6 (8.5-10.1) mg/dl Magnesium 1.9 (1.8-2.4) mg/dl Total Bilirubin 0.4 (0.2-1) mg/dl AST 8 L (15-37) U/L ALT 13 (12-78) U/L Alkaline Phosphatase 103 (45-117) U/L Troponin I 0.032 (0-0.045) ng/ml Total Protein 6.8 (6.4-8.2) gm/dl Albumin 3.2 L (3.4-5.0) gm/dl Globulin 3.6 (2.5-4.0) gm/dl Albumin/Globulin Ratio 0.9 (0.9-2) Influenza Type A (PCR) (Neg) Influenza Type B (PCR) (Neg) 04/12/19 04/12/19 Range/Units 14:58 Unknown WBC (4.8-10.8) K/uL RBC (4.2-5.4) M/uL Hgb (12.0-16.0) g/dL Hct (37-47) % MCV (80-100) fL MCH (25-34) pg MCHC (32-36) g/dL RDW Std Deviation (36.4-46.3) fL RDW Coeff of Chapo (11.5-14.5) % Plt Count (130-400) K/uL MPV (7.4-10.4) fL Immature Gran % (Auto) % Neut % (Auto) % Lymph % (Auto) % [place] % (Auto) % Eos % (Auto) % Baso % (Auto) % Immature Gran # (Auto) (0.00-0.02) K/uL Neut # (Auto) (1.4-6.5) K/uL Lymph # (Auto) (1.2-3.4) K/uL [place] # (Auto) (0.11-0.59) K/uL Eos # (Auto) (0-0.5) K/uL Baso # (Auto) (0-0.2) K/uL PT 10.4 INR 1.0 APTT 23.9 PTT Ratio 0.9 Sodium (136-145) mmol/L Potassium (3.5-5.1) mmol/L Chloride (98-107) mmol/L Carbon Dioxide (21-32) mmol/L Anion Gap (3-11) BUN (7-18) mg/dl Creatinine (0.6-1.2) mg/dl Est Cr Clr Drug Dosing ml/min Est GFR ( Amer) Est GFR (Non-Af Amer) BUN/Creatinine Ratio (10-20) Glucose (70-99) mg/dl Calcium (8.5-10.1) mg/dl Magnesium (1.8-2.4) mg/dl Total Bilirubin (0.2-1) mg/dl AST (15-37) U/L ALT (12-78) U/L Alkaline Phosphatase (45-117) U/L Troponin I (0-0.045) ng/ml Total Protein (6.4-8.2) gm/dl Albumin (3.4-5.0) gm/dl Globulin (2.5-4.0) gm/dl Albumin/Globulin Ratio (0.9-2) Influenza Type A (PCR) Neg for Influ A (Neg) Influenza Type B (PCR) Neg for Influ B (Neg) Imaging Data Radiologist's Impression: Radiology results as stated below per my review and the radiologist's interpretation: XR chest 1V portable CLINICAL HISTORY: Dyspnea COMPARISON STUDY: 12/16/2018 FINDINGS: Moderate cardiac enlargement. Trauma pulmonary vasculature. Small bi lateral pleural effusions. IMPRESSION: Congestive heart failure ACT 112: Negative or not required by law. The above report was generated using voice recognition software. It may contain grammatical, syntax or spelling errors. Electronically signed by: Francis Cedeno M.D. 04/12/2019 1:17 PM ECG Data Attestation: I personally reviewed and interpreted this ECG as follows: Indication: + SOB/dyspnea Rate (beats per minute): 115 Rhythm: + atrial fibrillation ECG ST segments: + ST depression (Inferior and Lateral) and + T-wave inversions (Lateral) ECG Findings: no PVCs Comparison ECG Date: from (12/16/18) Change: the following changes noted (Afib replaced NSR) Blood Pressure Blood Pressure Findings: Elevated blood pressure Blood Pressure Disposition: further management by hospitalist MARCIO Narrative The patient is an 83-year-old female who presented to the emergency department for an evaluation of difficulty breathing. Apparently the patient was having episodes at her personal senior care where she would have hypoxia and significant difficulty breathing. She was resting comfortably on my evaluation but does have a history and physical exam consistent with volume overload and CHF. The patient was treated with IV Lasix in the emergency department. She was also treated with IV Cardizem for rapid atrial fibrillation. I discussed the patient's laboratory and radiographic studies with her however her severe dementia limits her comprehension of this condition today. I discussed her case with the on-call [facility] hospitalist group. They have agreed to evaluate the patient in the emergency department for further management and disposition. Impression & Plan Atrial fibrillation with rapid ventricular response, CHF (congestive heart failure), SOB (shortness of breath) Discharge Plan Visit Data Chief Complaint: Shortness of Breath/Dyspnea Stated Complaint: SOB ED Provider: Panchito Flores Discharge Problem: Atrial fibrillation with rapid ventricular response, CHF (congestive heart failure), SOB (shortness of breath) Discharge Instructions Interventions: ED Discharge Assessment Last Done: 04/12/19 18:53 Forms Stand Alone Forms: My [facility] Prescriptions Prescriptions: No Action amlodipine 10 mg Tablet 10 mg PO QPM RF: 0 aspirin 81 mg Tablet,Chewable 81 mg PO DAILY RF: 0 atorvastatin [Lipitor] 40 mg Tablet 40 mg PO HS RF: 0 calcitriol [Rocaltrol] 0.25 mcg Capsule 0.25 mcg PO MOWEFR RF: 0 docusate sodium [Colace] 100 mg Capsule 100 mg PO BID RF: 0 escitalopram oxalate [Lexapro] 10 mg Tablet 10 mg PO QPM RF: 0 omeprazole 20 mg Capsule,Delayed Release(Dr/Ec) 20 mg PO QPM RF: 0 potassium chloride [K-Tab] 20 mEq Tablet Extended Release 20 meq PO DAILY RF: 0 nitroglycerin [Nitrostat] 0.4 mg Tablet, Sublingual 0.4 mg Sublingual UD PRN (Reason: Chest Pain) RF: 0 acetaminophen [Tylenol] 325 mg Tablet 650 mg PO QID PRN (Reason: Pain) RF: 0 clonazepam 0.25 mg Tablet,Disintegrating 0.25 mg PO HS RF: 0 sennosides [senna] 8.6 mg Tablet 8.6 mg PO HS RF: 0 ferrous sulfate [Iron (ferrous sulfate)] 325 mg (65 mg iron) Tablet 325 mg PO BID RF: 0 cholecalciferol (vitamin D3) [Vitamin D3] 2,000 unit Tablet 2,000 unit PO QPM RF: 0 Referrals Referrals: Peyton, [Primary Care Provider] - The scribe's documentation has been prepared under my direction and personally reviewed by me in its entirety. I confirm that the note above accurately reflects all work, treatment, procedures, and medical decision making performed by me.
--- NOTE | 2019-04-12 13:18 | XRay Report ---
XR chest 1V portable CLINICAL HISTORY: Dyspnea COMPARISON STUDY: 12/16/2018 FINDINGS: Moderate cardiac enlargement. Trauma pulmonary vasculature. Small bilateral pleural effusio ns. IMPRESSION: Congestive heart failure ACT 112: Negative or not required by law. The above report was generated using voice recognition software. It may contain grammatical, syntax or spelling errors. Electronically signed by: Francis Cedeno M.D. 04/12/2019 1:17 PM
[2019-04-12] MEDS ORDERED: FUROSEMIDE 40 MG/4 ML VIAL IV STA (14:07)
[2019-04-12 14:30] LABS: Basophils # (auto) 0.03 K/uL (0-0.2); Basophils % (auto) 0.5 %; Eosinophils # (auto) 0.32 K/uL (0-0.5); Eosinophils % (auto) 5.7 %; Hematocrit (blood only) 34.1 % (37-47); Hemoglobin 11.5 g/dL (12.0-16.0); Immature Granulocytes # (auto) 0.01 K/uL (0.00-0.02); Immature Granulocytes % (auto) 0.2 %; Lymphocytes # (auto) 1.47 K/uL (1.2-3.4); Lymphocytes % (auto) 26.3 %; Mean Corpuscular Hemoglobin 33.2 pg (25-34); Mean Corpuscular Hgb Conc 33.7 g/dL (32-36); Mean Corpuscular Volume 98.6 fL (80-100); Mean Platelet Volume 11.5 fL (7.4-10.4); Monocytes # (auto) 0.47 K/uL (0.11-0.59); Monocytes % (auto) 8.4 %; Neutrophils # (auto) 3.29 K/uL (1.4-6.5); Neutrophils % (auto) 58.9 %; Platelet Count 161 K/uL (130-400); RDW Coefficient of Variation 15.3 % (11.5-14.5); RDW Standard Deviation 54.8 fL (36.4-46.3); Red Blood Count 3.46 M/uL (4.2-5.4); White Blood Count 5.59 K/uL (4.8-10.8)
[2019-04-12 14:50] LABS: Albumin Level 3.2 gm/dl (3.4-5.0); BUN Creatinine Ratio 17.4 (10-20); Calcium 9.6 mg/dl (8.5-10.1); Creatinine Clr Calc Pharmacy 30.6 ml/min; Est GFR (African American) 52.2; Est GFR (Non-African American) 45.1; Magnesium 1.9 mg/dl (1.8-2.4); Potassium 4.4 mmol/L (3.5-5.1)
[2019-04-12 14:55] LABS: Albumin Globulin Ratio 0.9 (0.9-2); Bilirubin,Total 0.4 mg/dl (0.2-1); Globulin 3.6 gm/dl (2.5-4.0); Total Protein 6.8 gm/dl (6.4-8.2); Troponin I 0.032 ng/ml (0-0.045)
[2019-04-12 15:22] LABS: Influenza A virus by PCR Neg for Influ A (Neg); Influenza B virus by PCR Neg for Influ B (Neg)
[2019-04-12 15:32] LABS: Partial Thromboplastin Ratio 0.9; Partial Thromboplastin Time 23.9 Seconds (21.0-31.0); Prothrombin Time 10.4 Seconds (9.0-12.0)
[2019-04-12] MEDS ORDERED: dilTIAZem HCl 5 MG/ML 5 ML VIAL IV STA (17:05)
--- NOTE | 2019-04-12 17:45 | Electrocardiogram Report ---
Test Reason : Blood Pressure : / mmHG Vent. Rate : 115 BPM Atrial Rate : 300 BPM P-R Int : 000 ms QRS Dur : 074 ms QT Int : 344 ms P-R-T Axes : 000 069 269 degrees QTc Int : 475 ms Atrial fibrillation with rapid ventricular response Abnormal ECG When compared with ECG of 16-DEC-2018 17:53, Atrial fibrillation has replaced Sinus rhythm Vent. rate has increased BY 50 BPM Confirmed by Vasile Haley ([id number]) on 04/12/2019 5:44:58 PM Referred By: ER Confirmed By:Vasile Haley
--- NOTE | 2019-04-12 18:16 | History & Physical Report ---
Date of Service April 12, 2019 Assessment & Plan (1) SOB (shortness of breath): This is an 83-year-old female [facility] resident with PMH of vascular dementia, history of CAD, hx of CVA, PAF not on anticoagulation secondary to frequent falls, HTN, HLD, history of T2DM, CKD stage III, depression, GERD who presents with shortness of breath. -Staff noted the patient seems short of breath this morning and was reportedly hypoxic in the 80s. No cough, chest pain or palpitations. -No documented hypoxia in the ED since arrival and is currently saturating at 94% on room air -CXR with evidence of congestive heart failure -Afebrile, no leukocytosis or evidence of PNA -Presented in A Fib with RVR in 120s. SOB has resolved now that HR is ~95 (2) Atrial fibrillation with rapid ventricular response: EKG with A Fib with RVR with HR 115 -Not anticoagulated due to history of frequent falls -Not on rate or rhythm control normally. Received 10 mg Cardizem in ED with improved heart rate to 95 -Will start Lopressor 12.5 mg PO twice daily with hold parameters -Monitor on telemetry, repeat EKG tomorrow (3) Acute decompensated heart failure: CXR with congestive heart failure. BNP pending -2D echo from Nov 2018 with preserved EF, grade 1 diastolic dysfunction -Received 40mg IV Lasix in ED. Monitor intake/output, daily weights -Reassess volume status tomorrow for additional diuretics. Not on home diuretics (4) Vascular dementia: At baseline, oriented to person -Per daughter, can become agitated at night and in new places -One-to-one observation ordered (5) HTN (hypertension): Continue amlodipine (6) T2DM (type 2 diabetes mellitus): Diet controlled DVT Ppx: SQ heparin Code status: DNR per discussion with family (daughter Anette), chart review PCP: Lorena Dispo: Admitted to med/tele. Discharge planning ordered. Patient seen in collaboration with Dr. Gao. Please see addendum. History of Present Illness Chief Complaint: Shortness of breath [facility] This is an 83-year-old female [facility] resident with PMH of vascular dementia, history of CAD, hx of CVA, PAF not on anticoagulation secondary to frequent falls, HTN, HLD, history of T2DM, CKD stage III, depression, GERD who presents with shortness of breath. Staff noted the patient seems short of breath this morning and was reportedly hypoxic in the 80s. No cough, chest pain or palpitations. Was brought into ED for further evaluation. History from patient limited due to advanced dementia. Endorses feeling short of breath earlier today that is since resolved. No documented hypoxia in the ED since arrival and is currently saturating at 94% on room air. ROS very limited by patient denies any fever, chills, chest pain, palpitations, nausea, vomiting or abdominal pain. Discussed with daughter, Anette, over the phone who states that patient is at cognitive baseline. Confirmed the patient has been taken off of anticoagulation due to frequent falls, with hip fracture a few months ago. Follows with Dr. Luz of [facility] cardiology group. Has minimal ambulation and is mainly confined to wheelchair. Confirmed CODE STATUS is DNR. Allergies Allergy/AdvReac Type Severity Reaction Status Date / Time No Known Allergies Allergy . Verified 04/12/19 12:31 Home Medications Home Medications Medication Instructions Recorded Confirmed Type amlodipine 10 mg PO QPM 01/21/18 04/12/19 History aspirin 81 mg PO DAILY 01/21/18 04/12/19 History atorvastatin [Lipitor] 40 mg PO HS 01/21/18 04/12/19 History calcitriol [Rocaltrol] 0.25 mcg PO MOWEFR 01/21/18 04/12/19 History docusate sodium [Colace] 100 mg PO BID 01/21/18 04/12/19 History escitalopram oxalate [Lexapro] 10 mg PO QPM 01/21/18 04/12/19 History nitroglycerin [Nitrostat] 0.4 mg SUBLINGUAL UD PRN 01/21/18 04/12/19 History omeprazole 20 mg PO QPM 01/21/18 04/12/19 History potassium chloride [K-Tab] 20 meq PO DAILY 01/21/18 04/12/19 History acetaminophen [Tylenol] 650 mg PO QID PRN 12/16/18 04/12/19 History clonazepam 0.25 mg PO HS 12/16/18 04/12/19 History cholecalciferol (vitamin D3) 2,000 unit PO QPM 04/12/19 04/12/19 History [Vitamin D3] ferrous sulfate [Iron (ferrous 325 mg PO BID 04/12/19 04/12/19 History sulfate)] sennosides [senna] 8.6 mg PO HS 04/12/19 04/12/19 History Past Med/Surg History Medical History (Updated 04/12/19 @ 19:12 by Michelle Chris PA-C) 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) Chronic kidney disease stage 3 (Chronic 11/23/10) Chronic otitis externa (Chronic 11/23/10) GERD (gastroesophageal reflux disease) (Chronic) History of CVA (cerebrovascular accident) (Chronic) HLD (hyperlipidemia) (Chronic) HTN (hypertension) HTN (hypertension) T2DM (type 2 diabetes mellitus) (Chronic) Vascular dementia (Chronic) Surgical History History of appendectomy (Chronic) History of coronary artery balloon dilation (Chronic) 1994 History of partial hysterectomy (Chronic) Family History Father Stroke Mother Stroke Other Family history non-contributory Social History Preferred Language: Cymro Communication Ability: Effective Beliefs That Will Affect Care: None marital status: / Current Living Situation: Senior Living Current Living Situation Comment: [facility] current occupational status: retired Feels Safe at Home: Yes Smoking Status: Never smoker Hx Alcohol Use: Yes Alcohol Intake Frequency: Holidays/Special Occasions Hx Substance Use: No Review of Systems Review of Systems: Unobtainable due to cognitive status Physical Exam Physical Exam: General Appearance: WD/WN, vitals as above, NAD, sitting up in bed, pleasantly confused Head: normocephalic, atraumatic Eyes: normal inspection, PERRL, conjunctivae normal, anicteric sclerae ENT: external ear and nose normal, oropharynx normal Neck: trachea midline, no thyromegaly, normal visual inspection Respiratory: faint bibasilar crackles, no wheeze or rhonchi. Normal insp/exp effort, no accessory muscle use Cardiovascular: irregular rate & rhythm, no murmur appreciated, normal peripheral pulses, no BLE edema. Vessels: no JVD or carotid bruit Chest: normal inspection of chest Abdomen/GI: normal bowel sounds, soft, nontender, no hepatosplenomegaly Extremities/Musculoskelatal: no cyanosis or clubbing, extremities motor strength 5/5 Neurologic: PERRL, EOMI, accommodation nl, no face palsy, no dysarthria, CN's II-XI intact bilaterally and moves all extremities Psychiatric: A+Ox1 to person, euthymic affect Skin: no rashes, normal color, warm/dry Results & Data Vital Signs (Past 12 Hours) Vital Signs Temp Pulse Pulse Resp BP BP Pulse Ox 04/12/19 17:31 97 H 04/12/19 17:30 99 H 125/103 H 94 04/12/19 17:10 125 H 22 146/87 H 90 04/12/19 17:09 24 146/87 H 90 04/12/19 17:01 115 H 04/12/19 17:00 145 H 23 146/81 H 04/12/19 16:30 118 H 23 139/97 04/12/19 16:01 112 H 23 04/12/19 16:00 121 H 22 122/100 94 04/12/19 15:31 123 H 04/12/19 15:30 126 H 04/12/19 15:16 116 H 24 139/74 94 04/12/19 15:00 127 H 96 04/12/19 14:44 117 H 21 122/78 96 04/12/19 14:43 114 H 22 122/78 04/12/19 14:30 122 H 04/12/19 14:00 127 H 04/12/19 13:31 111 H 20 115/74 92 04/12/19 12:53 95 04/12/19 12:28 103 H 23 148/90 H 93 04/12/19 11:59 36.5 C 117 H 20 152/103 H 93 Laboratory Results Short CBC 04/12/19 Range/Units 14:17 WBC 5.59 (4.8-10.8) K/uL Hgb 11.5 L (12.0-16.0) g/dL Hct 34.1 L (37-47) % Plt Count 161 (130-400) K/uL BMP 04/12/19 14:17 Sodium 141 Potassium 4.4 Chloride 114 H Carbon Dioxide 23 BUN 20 H Creatinine 1.14 Glucose 89 Calcium 9.6 Cardiac Enzymes 04/12/19 Range/Units 14:17 Troponin I 0.032 (0-0.045) ng/ml Liver Function 04/12/19 Range/Units 14:17 Total Bilirubin 0.4 (0.2-1) mg/dl AST 8 L (15-37) U/L ALT 13 (12-78) U/L Alkaline Phosphatase 103 (45-117) U/L Albumin 3.2 L (3.4-5.0) gm/dl Diagnostic Findings CXR: IMPRESSION: Congestive heart failure ECG Rhythm: atrial fibrillation Findings: + nonspecific-ST abn Supervising Physician Co-Signing Physician Notes Attending addendum: The patient was seen and examined in emergency room She has been complaining of occasional shortness of breath with palpitation for the last few days She denies any chest pain, no fever no chills and no abdominal pain nausea a nd/or vomiting On examination Feels a little better in the emergency room Not any acute distress Hemodynamically stable with heart rate coming down to low 100s Chest-decreased breath sounds with bibasilar crackles Heart-S1-S2 irregular Abdomen-benign Extremities-no edema 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 Has dementia without any acute delirium Admission labs and imaging studies reviewed Presented with A. fib with RVR and CHF likely secondary to diastolic dysfunction Received 1 dose of Cardizem and will continue with oral beta-deon Received Lasix intravenously and things are getting better Agree with assessment and plan as outlined above by TANIA Echeverria DR
[2019-04-12] MEDS ORDERED: POLYETHYLENE (MIRALAX) 17 GM PACK PO PRN (19:49)
[2019-04-12] MEDS ORDERED: ACETAMINOPHEN 325 MG TAB PO PRN ×2 (19:49)
[2019-04-12] MEDS ORDERED: PNEUMOCOCCAL Polysaccharide Vaccine 25mcg/0.5mL vial/Syr IM ONE (20:30)
[2019-04-12] MEDS ORDERED: INFLUENZA Vaccine HIGH DOSE 65+yrs 0.5 mL Syr IM ONE (20:30)
[2019-04-12] MEDS ORDERED: clonazePAM 0.5 MG TAB PO SCH (21:00)
[2019-04-12] MEDS: DOCUSATE SODIUM 100 MG CAP PO SCH (21:01)
[2019-04-12] MEDS: FERROUS SULFATE 325 MG TAB PO SCH (21:01)
[2019-04-12] MEDS: HEPARIN SOD 5,000 UNIT/0.5 ML VIAL SQ SCH (21:01)
[2019-04-12] MEDS: METOPROLOL TARTRATE 25 MG TAB PO SCH (21:03)
[2019-04-12] MEDS: ATORVASTATIN 40 MG TAB PO SCH (21:03)
[2019-04-12] MEDS: ESCITALOPRAM OXALATE 10 MG TAB PO SCH (21:03)
[2019-04-12] MEDS: AMLODIPINE BESYLATE 5 MG TAB PO SCH (21:04)
[2019-04-12] MEDS: PANTOprazole 40 MG TAB PO SCH (21:05)
[2019-04-12] MEDS: SENNA 8.6 MG TAB PO SCH (21:05)
[2019-04-12] MEDS: CHOLECALCIFEROL 1,000 UNITS TAB PO SCH (21:06)
[2019-04-12 22:40] LABS: Appearance Urine Turbid (Clear); Bacteria Urine Automated 4+ (Negative); Bilirubin Urine Negative (Negative); Blood Urine 1+ (Negative); Color Urine Yellow; Epithelial Cell Urine Auto >30 /lpf (0-5); Glucose Urine UA Negative (Negative); Ketones Urine Negative (Negative); Leukocyte Esterase Urine 3+ (Negative); Nitrite Urine Negative (Negative); Protein Urine Trace (Negative); Specific Gravity Urine 1.008 (1.000-1.030); Urobilinogen Urine Negative (Negative); WBC Urine Automated >30 /hpf (0-5); pH Urine 6.5 (4.5-7.5)
[2019-04-12 22:48] LABS: RBC Urine Automated 0-4 /hpf (0-4)
[2019-04-13 08:02] LABS: Hematocrit (blood only) 35.3 % (37-47); Platelet Count 216 K/uL (130-400); RDW Standard Deviation 53.2 fL (36.4-46.3); Red Blood Count 3.64 M/uL (4.2-5.4); White Blood Count 5.66 K/uL (4.8-10.8)
[2019-04-13] MEDS: FERROUS SULFATE 325 MG TAB PO SCH ×2 (08:12→20:39)
[2019-04-13] MEDS: METOPROLOL TARTRATE 25 MG TAB PO SCH ×2 (08:12→20:42)
[2019-04-13] MEDS: ASPIRIN 81 MG ECTAB PO SCH (08:13)
[2019-04-13] MEDS: POTASSIUM CHLORIDE 20 MEQ TABCR PO SCH (08:13)
[2019-04-13] MEDS: CALCITRIOL 0.25 MCG CAPSULE PO SCH (08:13)
[2019-04-13] MEDS: HEPARIN SOD 5,000 UNIT/0.5 ML VIAL SQ SCH ×2 (08:13→20:41)
[2019-04-13] MEDS: DOCUSATE SODIUM 100 MG CAP PO SCH ×2 (08:13→20:38)
[2019-04-13 08:46] LABS: Calcium 10.1 mg/dl (8.5-10.1); Potassium 3.5 mmol/L (3.5-5.1)
[2019-04-13 08:54] LABS: BUN Creatinine Ratio 17.5 (10-20); Creatinine Clr Calc Pharmacy 27.5 ml/min; Est GFR (African American) 49.1; Est GFR (Non-African American) 42.4
--- NOTE | 2019-04-13 12:31 | Hospitalist Progress Note ---
Date of Service April 13, 2019 Assessment & Plan (1) Acute decompensated heart failure: CXR with congestive heart failure. BNP pending -2D echo from Nov 2018 with preserved EF, grade 1 diastolic dysfunction -Received 40mg IV Lasix in ED. Monitor intake/output, daily weights -Reassess volume status tomorrow for additional diuretics. Not on home diuretics (2) SOB (shortness of breath): Present on admission with SOB CXR showed congestive heart failure Possible related to Afib with RVR BNP on admission 6290 Received IV lasix 40mg in the ER Echo from Nov 2018 with preserved EF, grade 1 diastolic dysfunction Will start on low dose lasix 20mg daily Will repeat ECHO Saturated well on RA Cardiology consult Clinically improved (3) Atrial fibrillation with rapid ventricular response: EKG with A Fib with RVR with HR 115 Received IV cardizem 10mg on admission Tele monitor showed Afiv with HR btw 110 to 125's Will increase metoprolol to 25mg BID Not anticoagulated due to history of frequent falls Follow up Echo Cardio consult (4) Vascular dementia: At baseline, oriented to person Per daughter, can become agitated at night and in new places stable (5) HTN (hypertension): Continue amlodipine (6) T2DM (type 2 diabetes mellitus): Diet controlled DVT Ppx: SQ heparin Code status: DNR Disposition Continue monitor in tele Subjective Pt was seen and examined Lying in bed with no distress Pt said that she feels ok Denies any chest pain, palpitation and SOB Physical Exam Physical Exam: General- No acute distress Head- atraumatic Eyes- PERRL, EOMI, ENT- oropharynx clear Neck- supple, no JVD Lungs- clear to auscultation Heart- irregular rhythm Abdomen- normal bowel sounds, soft, nontender Extremities- no calf tenderness Neuro- alert, oriented x 3; PERRL, EOMI; no facial palsy; no dysarthria Skin- warm & dry Results & Data Vital Signs (Past 12 Hours) Vital Signs Temp Pulse Pulse Resp BP Pulse Ox 04/13/19 11:30 36.6 C 124 H 16 126/69 97 04/13/19 07:43 36.6 C 107 H 16 136/88 90 04/13/19 02:51 36.8 C 94 H 18 132/82 92
[2019-04-13] MEDS ORDERED: METOPROLOL TARTRATE 25 MG TAB PO ONE (12:46)
--- NOTE | 2019-04-13 14:54 | Cardiology Consultation ---
Date of Consultation April 13, 2019 Assessment & Plan (1) Acute decompensated heart failure: (2) Paroxysmal atrial fibrillation: (3) UTI (urinary tract infection): (4) Vascular dementia: 83-year-old female mated with shortness of breath, congestive heart failure, and atrial fibrillation with rapid ventricular response. Recommend IV diuretic therapy, Lasix 40 mg twice daily. Titrate metoprolol tartrate to 25 mg twice daily. Continue telemetry monitoring. Follow daily weight, fluid balance, GFR, electrolytes. Repeat resting 2D transthoracic echocardiogram pending. Urine culture positive for gram-negative bacilli. Antibiotics per internal medicine. History of Present Illness Reason for Consultation: CHF, atrial fibrillation Requesting Physician: Dr. Stubsb Attending Physician: Gale Stubbs MD History of Present Illness 83-year-old female presented to hospital with shortness of breath from senior living. She is a poor historian due to underlying dementia. She does not recall why she came to the hospital. There is no conversational dyspnea. She denies chest pain or palpitations. ECG and telemetry demonstrate atrial fibrillation with rapid ventricular response. Per review of records, she carries a history of paroxysmal atrial fibrillation however not anticoagulated due to fall risk. Currently upright without complaints. Tolerated her midday meal. No orthopnea or PND. Denies edema or claudication.Offers no other complaints. Allergies Allergy/AdvReac Type Severity Reaction Status Date / Time No Known Allergies Allergy . Verified 04/12/19 12:31 Home Medications Home Medications Medication Instructions Recorded Confirmed Type amlodipine 10 mg PO QPM 01/21/18 04/12/19 History aspirin 81 mg PO DAILY 01/21/18 04/12/19 History atorvastatin [Lipitor] 40 mg PO HS 01/21/18 04/12/19 History calcitriol [Rocaltrol] 0.25 mcg PO MOWEFR 01/21/18 04/12/19 History docusate sodium [Colace] 100 mg PO BID 01/21/18 04/12/19 History escitalopram oxalate [Lexapro] 10 mg PO QPM 01/21/18 04/12/19 History nitroglycerin [Nitrostat] 0.4 mg SUBLINGUAL UD PRN 01/21/18 04/12/19 History omeprazole 20 mg PO QPM 01/21/18 04/12/19 History potassium chloride [K-Tab] 20 meq PO DAILY 01/21/18 04/12/19 History acetaminophen [Tylenol] 650 mg PO QID PRN 12/16/18 04/12/19 History clonazepam 0.25 mg PO HS 12/16/18 04/12/19 History cholecalciferol (vitamin D3) 2,000 unit PO QPM 04/12/19 04/12/19 History [Vitamin D3] ferrous sulfate [Iron (ferrous 325 mg PO BID 04/12/19 04/12/19 History sulfate)] sennosides [senna] 8.6 mg PO HS 04/12/19 04/12/19 History Patient History Medical History 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) Chronic kidney disease stage 3 (Chronic 11/23/10) Chronic otitis externa (Chronic 11/23/10) GERD (gastroesophageal reflux disease) (Chronic) History of CVA (cerebrovascular accident) (Chronic) HLD (hyperlipidemia) (Chronic) HTN (hypertension) HTN (hypertension) T2DM (type 2 diabetes mellitus) (Chronic) Vascular dementia (Chronic) Surgical History History of appendectomy (Chronic) History of coronary artery balloon dilation (Chronic) 1994 History of partial hysterectomy (Chronic) Family History Father Stroke Mother Stroke Other Family history non-contributory Social History Preferred Language: Nigerien Communication Ability: Confusion Communication Ability Comment: Dementia Cost Analyst Required: No Beliefs That Will Affect Care: None marital status: / Current Living Situation: Residential Current Living Situation Comment: [facility] current occupational status: retired Other Information That Helps Us Care for You: No Feels Safe at Home: Yes Safety Concerns: Feels Safe At This Time Smoking Status: Unknown if ever smoked Review of Systems Review of Systems: Unobtainable due to cognitive status Physical Exam Constitutional: well developed, well nourished and + ill appearing; no acute distress Respiratory: Auscultation: + diminished lung sounds and + rales; no rhonchi and no wheezes Cardiovascular: Rate/Rhythm: + tachycardic and + irregularly irregular Heart Sounds: normal S1 and normal S2; no murmur and no cardiac rub Vessels: + JVD and radial pulses present Extremities: no edema Gastrointestinal (Abdomen): Inspection/Auscultation: normal bowel sounds; abdomen not distended Percussion/Palpation: abdomen soft; abdomen nontender, no guarding and abdomen not rigid Musculoskeletal: Head/Neck/Chest: normocephalic and head atraumatic Skin: no rashes, warm and dry Neurologic: moves all extremities; no focal motor deficits Psychiatric: Insight: + poor insight Results & Data Vital Signs (Past 12 Hours) Vital Signs Temp Pulse Pulse Resp BP Pulse Ox 04/13/19 11:30 36.6 C 124 H 16 126/69 97 04/13/19 07:43 36.6 C 107 H 16 136/88 90 04/13/19 02:51 36.8 C 94 H 18 132/82 92
[2019-04-13] MEDS: cefTRIAXone SODIUM 1,000 MG in DEXTROSE 5% 50 ML IV SCH (17:51)
[2019-04-13] MEDS: AMLODIPINE BESYLATE 5 MG TAB PO SCH (20:34)
[2019-04-13] MEDS: FUROSEMIDE 40 MG in SYRINGE 0 ML IV SCH (20:41)
[2019-04-13] MEDS: SENNA 8.6 MG TAB PO SCH (20:42)
[2019-04-13] MEDS: PANTOprazole 40 MG TAB PO SCH (20:42)
[2019-04-13] MEDS: ATORVASTATIN 40 MG TAB PO SCH (20:43)
[2019-04-13] MEDS: ESCITALOPRAM OXALATE 10 MG TAB PO SCH (20:44)
[2019-04-13] MEDS: CHOLECALCIFEROL 1,000 UNITS TAB PO SCH (20:44)
[2019-04-13] MEDS: clonazePAM 0.5 MG TAB PO SCH (20:48)
[2019-04-14 07:23] LABS: Hematocrit (blood only) 37.9 % (37-47); Mean Corpuscular Hemoglobin 33.7 pg (25-34); Mean Corpuscular Hgb Conc 34.3 g/dL (32-36); Mean Corpuscular Volume 98.2 fL (80-100); Mean Platelet Volume 11.1 fL (7.4-10.4); Platelet Count 231 K/uL (130-400); Red Blood Count 3.86 M/uL (4.2-5.4); White Blood Count 6.33 K/uL (4.8-10.8)
[2019-04-14 07:50] LABS: BUN Creatinine Ratio 19.4 (10-20); Calcium 10.9 mg/dl (8.5-10.1); Creatinine Clr Calc Pharmacy 22.1 ml/min; Est GFR (Non-African American) 34.6; Potassium 3.7 mmol/L (3.5-5.1)
[2019-04-14] MEDS: ASPIRIN 81 MG ECTAB PO SCH (09:45)
[2019-04-14] MEDS: HEPARIN SOD 5,000 UNIT/0.5 ML VIAL SQ SCH ×2 (09:45→20:34)
[2019-04-14] MEDS: FERROUS SULFATE 325 MG TAB PO SCH ×2 (09:45→20:39)
[2019-04-14] MEDS: POTASSIUM CHLORIDE 20 MEQ TABCR PO SCH (09:45)
[2019-04-14] MEDS: FUROSEMIDE 40 MG in SYRINGE 0 ML IV SCH (09:45)
[2019-04-14] MEDS: DOCUSATE SODIUM 100 MG CAP PO SCH ×2 (09:46→20:38)
[2019-04-14] MEDS: METOPROLOL TARTRATE 25 MG TAB PO SCH (11:55)
--- NOTE | 2019-04-14 14:14 | Cardiology Progress Note ---
Date of Service April 14, 2019 Assessment & Plan (1) Acute decompensated heart failure: (2) Paroxysmal atrial fibrillation: (3) UTI (urinary tract infection): (4) Vascular dementia: 83-year-old female with shortness of breath, congestive heart failure, and atrial fibrillation with rapid ventricular response. Rates have improved and patient has diuresed since admission. Patient unable to give additional information Recommend change metoprolol tartrate to metoprolol succinate given LV dysfunction noted on echocardiogram. Will reduce dose of amlodipine with anticipation of adding low-dose MARCUS inhibitor for optimal medical regimen. Hold further IV furosemide (5) Cardiomyopathy: Subjective Patient seen, chart, medications, telemetry reviewed. Patient offers no complaints with poor historian Physical Exam Constitutional: + thin Eyes: PERRL, conjunctivae normal, anicteric sclerae ENMT: external ear and nose normal, oropharynx normal Neck: trachea midline, no thyromegaly Respiratory: Auscultation: + diminished lung sounds Cardiovascular: Rate/Rhythm: + irregularly irregular Heart Sounds: normal S1 and normal S2; no gallop and no murmur Palpation: normal PMI Vessels: normal carotid upstroke and radial pulses present; no JVD and no carotid bruit Extremities: + edema (1+) Gastrointestinal (Abdomen): normal bowel sounds, soft, nontender, no hepatosplenomegaly Musculoskeletal: no cyanosis or clubbing, extremities motor strength 5/5 Skin: no rashes, warm and dry Neurologic: PERRL, EOMI, accommodation nl, no face palsy, no dysarthria Psychiatric: A+Ox3, euthymic affect Results & Data Vital Signs (Past 12 Hours) Vital Signs Temp Pulse Pulse Resp BP BP Pulse Ox 04/14/19 11:00 36.2 C L 114 H 16 113/66 95 04/14/19 07:00 36.5 C 86 107 H 16 117/77 91 04/14/19 04:42 36.4 C L 111 H 19 113/67 95 Laboratory Results Laboratory Results - last 24 hr 04/14/19 04/14/19 07:10 07:10 WBC 6.33 RBC 3.86 L Hgb 13.0 Hct 37.9 MCV 98.2 MCH 33.7 MCHC 34.3 RDW Std Deviation 53.0 H RDW Coeff of Chapo 15.0 H Plt Count 231 MPV 11.1 H Sodium 140 Potassium 3.7 Chloride 107 Carbon Dioxide 25 Anion Gap 8.0 BUN 28 H Creatinine 1.42 H Est Cr Clr Drug Dosing 22.1 Est GFR ( Amer) 40.0 Est GFR (Non-Af Amer) 34.6 BUN/Creatinine Ratio 19.4 Glucose 80 Calcium 10.9 H
--- NOTE | 2019-04-14 16:02 | Hospitalist Progress Note ---
Date of Service April 14, 2019 Assessment & Plan (1) Acute decompensated heart failure: (2) SOB (shortness of breath): Present on admission with SOB CXR showed congestive heart failure Possible related to Afib with RVR BNP on admission 6290 Received IV lasix 40mg in the ER Will hold IV lasix for now since creatinine increased to 1.4 Echo showed left ventricular systolic function is severely reduced. Severe global hypokinesis of the left ventricle. There was a small circumferential pericardial effusion with a moderate amount of fluid loculated in the posteriorly. Ejection fraction between 25 to 30% Metoprolol changed to metoprolol succinate Continue monitor (3) Atrial fibrillation with rapid ventricular response: EKG with A Fib with RVR with HR 115 Received IV cardizem 10mg on admission Tele monitor showed Afiv with HR btw 110 to 125's metoprolol tartrate changed to metoprolol succ 25mg BID Not anticoagulated due to history of frequent falls cardiology on board (4) UTI (urinary tract infection): Urine cx grew E.COLI Continue IV rocephin for now Will transition to oral abx on discharge (5) Vascular dementia: At baseline, oriented to person Per daughter, can become agitated at night and in new places stable (6) HTN (hypertension): Amlodipine decreased to 5mg daily Plan to add low dose of ACEI due to ECHO finding. Continue metoprolol 25mg BID Monitor BP (7) T2DM (type 2 diabetes mellitus): Diet controlled DVT Ppx: SQ heparin Code status: DNR Disposition Continue monitor in tele Update provided to her daughter Anette (phone # [phone]) Subjective Pt was seen and examined Lying in bed with no distress Spoke to daughter Anette over the phone and update provided Denies any chest pain, palpitation and SOB Physical Exam Physical Exam: General- No acute distress Head- atraumatic Eyes- PERRL, EOMI, ENT- oropharynx clear Neck- supple, no JVD Lungs- Diminished BS Heart- irregular rhythm Abdomen- normal bowel sounds, soft, nontender Extremities- no calf tenderness, +edema Neuro- alert, oriented x 3; PERRL, EOMI; no facial palsy; no dysarthria Skin- warm & dry Results & Data Vital Signs (Past 12 Hours) Vital Signs Temp Pulse Pulse Resp BP BP Pulse Ox 04/14/19 15:00 36.5 C 110 H 16 127/90 96 04/14/19 11:00 36.2 C L 114 H 16 113/66 95 04/14/19 07:00 36.5 C 86 107 H 16 117/77 91 04/14/19 04:42 36.4 C L 111 H 19 113/67 95
[2019-04-14] MEDS ORDERED: DIGOXIN 250 MCG in SYRINGE 9 ML IV ONE (17:17)
[2019-04-14] MEDS: cefTRIAXone SODIUM 1,000 MG in DEXTROSE 5% 50 ML IV SCH (19:17)
[2019-04-14] MEDS: SENNA 8.6 MG TAB PO SCH (20:40)
[2019-04-14] MEDS: PANTOprazole 40 MG TAB PO SCH (20:40)
[2019-04-14] MEDS: ATORVASTATIN 40 MG TAB PO SCH (20:41)
[2019-04-14] MEDS: AMLODIPINE BESYLATE 5 MG TAB PO SCH (20:41)
[2019-04-14] MEDS: CHOLECALCIFEROL 1,000 UNITS TAB PO SCH (20:50)
[2019-04-14] MEDS: METOPROLOL SUCC 25MG EXT REL TAB PO SCH (20:51)
[2019-04-14] MEDS: ESCITALOPRAM OXALATE 10 MG TAB PO SCH (20:52)
[2019-04-14] MEDS: clonazePAM 0.5 MG TAB PO SCH (20:55)
[2019-04-15 06:36] LABS: BUN Creatinine Ratio 21.4 (10-20); Calcium 10.2 mg/dl (8.5-10.1); Creatinine Clr Calc Pharmacy 18.1 ml/min; Est GFR (African American) 31.3; Potassium 3.3 mmol/L (3.5-5.1)
[2019-04-15] MEDS: HEPARIN SOD 5,000 UNIT/0.5 ML VIAL SQ SCH ×2 (09:09→21:14)
[2019-04-15] MEDS: FERROUS SULFATE 325 MG TAB PO SCH ×2 (09:09→20:18)
[2019-04-15] MEDS: DOCUSATE SODIUM 100 MG CAP PO SCH ×2 (09:10→20:28)
[2019-04-15] MEDS: POTASSIUM CHLORIDE 20 MEQ TABCR PO SCH (09:10)
[2019-04-15] MEDS: ASPIRIN 81 MG ECTAB PO SCH (09:11)
[2019-04-15] MEDS: METOPROLOL SUCC 25MG EXT REL TAB PO SCH ×2 (09:16→20:28)
--- NOTE | 2019-04-15 11:07 | Cardiology Progress Note ---
Date of Service April 15, 2019 Assessment & Plan (1) Acute decompensated heart failure: (2) Paroxysmal atrial fibrillation: (3) UTI (urinary tract infection): (4) Vascular dementia: 83-year-old female with shortness of breath, congestive heart failure, and atrial fibrillation with rapid ventricular response. Rates have improved and patient has diuresed since admission. Patient unable to give additional information Recommend change metoprolol tartrate to metoprolol succinate given LV dysfunction noted on echocardiogram. Will reduce dose of amlodipine with anticipation of adding low-dose MARCUS inhibitor for optimal medical regimen. Hold further furosemide until renal function improves volume overload improved. Will anticipate low-dose digoxin likely on discharge depending on heart rate response to metoprolol succinate (5) Cardiomyopathy: Subjective Patient seen and examined, chart ,medications telemetry reviewed Patient brighter this morning in no acute complaints. No dizziness or lightheadedness. Edema has resolved and heart rates are under better control Physical Exam Constitutional: + thin Eyes: PERRL, conjunctivae normal, anicteric sclerae ENMT: external ear and nose normal, oropharynx normal Neck: trachea midline, no thyromegaly Respiratory: Auscultation: + diminished lung sounds Cardiovascular: Rate/Rhythm: + irregularly irregular Heart Sounds: normal S1 and normal S2; no gallop and no murmur Palpation: normal PMI Vessels: normal carotid upstroke and radial pulses present; no JVD and no carotid bruit Extremities: + edema (1+) Gastrointestinal (Abdomen): normal bowel sounds, soft, nontender, no hepatosplenomegaly Musculoskeletal: no cyanosis or clubbing, extremities motor strength 5/5 Skin: no rashes, warm and dry Neurologic: PERRL, EOMI, accommodation nl, no face palsy, no dysarthria Psychiatric: A+Ox3, euthymic affect Results & Data Vital Signs (Past 12 Hours) Vital Signs Temp Pulse Pulse Resp BP BP Pulse Ox 04/15/19 07:10 68 04/15/19 07:00 36.9 C 88 16 107/63 96 04/15/19 04:23 36.4 C L 88 17 111/67 90
--- NOTE | 2019-04-15 12:08 | Hospitalist Progress Note ---
Date of Service April 15, 2019 Assessment & Plan (1) Acute decompensated heart failure: (2) SOB (shortness of breath): Present on admission with SOB CXR showed congestive heart failure Possible related to Afib with RVR BNP on admission 6290 Received IV lasix 40mg in the ER Continue to hold lasix for now since creatinine increased to 1.7 Echo showed left ventricular systolic function is severely reduced. Severe global hypokinesis of the left ventricle. There was a small circumferential pericardial effusion with a moderate amount of fluid loculated in the posteriorly. Ejection fraction between 25 to 30% Metoprolol changed to metoprolol succinate, will continue Continue monitor (3) Atrial fibrillation with rapid ventricular response: EKG with A Fib with RVR with HR 115 Received IV cardizem 10mg on admission Received digoxin x1 yesterday Heart Rate better control now metoprolol tartrate changed to metoprolol succ 25mg BID, will continue Not anticoagulated due to history of frequent falls cardiology on board Case discussed with Cardiology and plan to start on low dose of Digoxin if HR does not improve with Metoprolol succinate (4) UTI (urinary tract infection): Urine cx grew E.COLI Continue IV rocephin for now Will transition to oral keflex on discharge (5) HTN (hypertension): Amlodipine decreased to 5mg daily Plan to add low dose of ACEI due to ECHO finding. Continue metoprolol 25mg BID Monitor BP (6) Vascular dementia: At baseline, oriented to person Per daughter, can become agitated at night and in new places stable (7) Acute renal failure superimposed on stage 3 chronic kidney disease: Mostly related to diuresis creatinine increased to 1.7 today Continue to hold Lasix Avoid nephrotoxic agents Monitor BMP (8) Hypokalemia: K 3.2 K replaced monitor BMP (9) T2DM (type 2 diabetes mellitus): Diet controlled DVT Ppx: SQ heparin Code status: DNR Disposition Continue monitor in tele Update provided to her daughter Anette (phone # [phone]) Subjective Pt was seen and examined Lying in bed with no distress Pt said that her breathing is ok Denies any chest pain, palpitation and SOB Physical Exam Physical Exam: General- No acute distress Head- atraumatic Eyes- PERRL, EOMI, ENT- oropharynx clear Neck- supple, no JVD Lungs- Diminished BS Heart- irregular rhythm Abdomen- normal bowel sounds, soft, nontender Extremities- no calf tenderness, +edema Neuro- alert, oriented x 3; PERRL, EOMI; no facial palsy; no dysarthria Skin- warm & dry Results & Data Vital Signs (Past 12 Hours) Vital Signs Temp Pulse Pulse Resp BP BP Pulse Ox 04/15/19 11:00 36.6 C 88 16 126/78 92 04/15/19 07:10 68 04/15/19 07:00 36.9 C 88 16 107/63 96 04/15/19 04:23 36.4 C L 88 17 111/67 90
[2019-04-15] MEDS ORDERED: POTASSIUM CHLORIDE 10 MEQ TABCR PO ONE (13:15)
[2019-04-15] MEDS: cefTRIAXone SODIUM 1,000 MG in DEXTROSE 5% 50 ML IV SCH (17:03)
[2019-04-15] MEDS: clonazePAM 0.5 MG TAB PO SCH (20:23)
[2019-04-15] MEDS: ESCITALOPRAM OXALATE 10 MG TAB PO SCH (20:24)
[2019-04-15] MEDS: PANTOprazole 40 MG TAB PO SCH (20:24)
[2019-04-15] MEDS: SENNA 8.6 MG TAB PO SCH (20:25)
[2019-04-15] MEDS: CHOLECALCIFEROL 1,000 UNITS TAB PO SCH (20:27)
[2019-04-15] MEDS: AMLODIPINE BESYLATE 5 MG TAB PO SCH (20:28)
[2019-04-15] MEDS: ATORVASTATIN 40 MG TAB PO SCH (20:29)
[2019-04-16 06:33] LABS: BUN Creatinine Ratio 22.6 (10-20); Calcium 10.4 mg/dl (8.5-10.1); Creatinine Clr Calc Pharmacy 22.3 ml/min; Est GFR (African American) 38.7; Est GFR (Non-African American) 33.4; Potassium 3.8 mmol/L (3.5-5.1)
[2019-04-16] MEDS: DOCUSATE SODIUM 100 MG CAP PO SCH ×2 (08:38→20:44)
[2019-04-16] MEDS: HEPARIN SOD 5,000 UNIT/0.5 ML VIAL SQ SCH ×2 (08:38→20:45)
[2019-04-16] MEDS: POTASSIUM CHLORIDE 20 MEQ TABCR PO SCH (08:38)
[2019-04-16] MEDS: ASPIRIN 81 MG ECTAB PO SCH (08:40)
[2019-04-16] MEDS: METOPROLOL SUCC 25MG EXT REL TAB PO SCH ×2 (08:40→20:47)
[2019-04-16] MEDS: CALCITRIOL 0.25 MCG CAPSULE PO SCH (08:41)
[2019-04-16] MEDS: FERROUS SULFATE 325 MG TAB PO SCH ×2 (08:41→20:45)
--- NOTE | 2019-04-16 09:37 | Cardiology Progress Note ---
Date of Service April 16, 2019 Assessment & Plan (1) Acute decompensated heart failure: 83-year-old female with shortness of breath, congestive heart failure, and atrial fibrillation with rapid ventricular response. Rates have improved and patient has diuresed since admission. Patient unable to give additional information. Very confused this AM. Tolerating transition to oral metoprolol succinate. Rates on telemetry ranging 80-100. Creatinine trending down, now 1.4. (baseline on admission 1.0-1.2). Appears clinically dry. Possibly poor PO intake. Will need to consider low dose Furosemide 20 mg daily on discharge to maintain volume status. Pending repeat renal function in AM, may add low dose furosemide and/or low dose lisinopril. Consider further reduction in amlodipine. Case discussed with Dr. Parks. Will follow. (2) Paroxysmal atrial fibrillation: (3) UTI (urinary tract infection): (4) Vascular dementia: (5) Cardiomyopathy: Supervising Physician Co-Signing Physician Notes Patient seen and examined personally. Agree with assessment as above. Patient more confused and slightly agitated this morning but no acute cardiac complaints. No adjustments made medications at this time No signs of volume overload at this time Subjective Patient examined in bed. Trying to crawl out. Confused this morning. Concerned there are people here in her house and they need to leave. Unsure of baseline. Review of systems not able to be performed. Appears comfortable. No respiratory distress. Review of Systems Review of Systems: Unobtainable due to cognitive status Physical Exam Constitutional: + thin and + altered mental status; no acute distress Respiratory: normal respiratory effort Auscultation: + diminished lung sounds; no crackles and no rales Cardiovascular: Rate/Rhythm: + irregularly irregular Heart Sounds: no murmur Extremities: no edema Gastrointestinal (Abdomen): normal bowel sounds, soft, nontender, no hepatosplenomegaly Results & Data Vital Signs (Past 12 Hours) Vital Signs Temp Pulse Pulse Pulse Resp BP BP 04/16/19 08:46 36.6 C 95 H 18 138/85 04/16/19 07:00 91 H 04/16/19 03:42 36.8 C 91 H 17 125/83 04/16/19 02:50 36.2 C L 93 H 18 132/90 04/15/19 23:48 102 H 04/15/19 23:37 36.6 C 109 H 18 131/76 Pulse Ox 04/16/19 08:46 95 04/16/19 07:00 04/16/19 03:42 89 L 04/16/19 02:50 96 04/15/19 23:48 04/15/19 23:37 90 Laboratory Results 04/16/19 Range/Units 05:42 Sodium 139 (136-145) mmol/L Potassium 3.8 D (3.5-5.1) mmol/L Chloride 107 (98-107) mmol/L Carbon Dioxide 24 (21-32) mmol/L Anion Gap 8.0 (3-11) BUN 33 H (7-18) mg/dl Creatinine 1.46 H (0.6-1.2) mg/dl Est Cr Clr Drug Dosing 22.3 ml/min Est GFR ( Amer) 38.7 Est GFR (Non-Af Amer) 33.4 BUN/Creatinine Ratio 22.6 H (10-20) Glucose 87 (70-99) mg/dl Calcium 10.4 H (8.5-10.1) mg/dl
--- NOTE | 2019-04-16 14:39 | Hospitalist Progress Note ---
Date of Service April 16, 2019 Assessment & Plan (1) Acute decompensated heart failure: (2) SOB (shortness of breath): Present on admission with SOB CXR showed congestive heart failure Possible related to Afib with RVR BNP on admission 6290 Received IV lasix 40mg in the ER Continue to hold lasix for now since creatinine increased to 1.4 Echo showed left ventricular systolic function is severely reduced. Severe global hypokinesis of the left ventricle. There was a small circumferential pericardial effusion with a moderate amount of fluid loculated in the posteriorly. Ejection fraction between 25 to 30% Metoprolol changed to metoprolol succinate, will continue Plan to start on low dose lasix tomorrow Continue monitor Clinically stable (3) Atrial fibrillation with rapid ventricular response: EKG with A Fib with RVR with HR 115 Received IV cardizem 10mg on admission Received digoxin x1 yesterday Heart Rate better control metoprolol tartrate changed to metoprolol succ 25mg BID, will continue Not anticoagulated due to history of frequent falls cardiology on board Case discussed with Cardiology and plan to start on low dose of Digoxin if HR does not improve with Metoprolol succinate Continue metoprolol 25mg BID (4) UTI (urinary tract infection): Urine cx grew E.COLI Continue IV rocephin for now IV rocephin transition to oral keflex (5) HTN (hypertension): Amlodipine decreased to 5mg daily Plan to add low dose of ACEI due to ECHO finding. Continue metoprolol 25mg BID Monitor BP (6) Vascular dementia: At baseline, oriented to person Per daughter, can become agitated at night and in new places stable (7) Acute renal failure superimposed on stage 3 chronic kidney disease: Mostly related to diuresis creatinine increased to 1.7 today Continue to hold Lasix Avoid nephrotoxic agents Monitor BMP (8) Hypokalemia: K 3.8 Stable monitor BMP (9) T2DM (type 2 diabetes mellitus): Diet controlled DVT Ppx: SQ heparin Code status: DNR Disposition Continue monitor in tele Update provided to her daughter Anette (phone # [phone]) Subjective Pt was seen and examined Lying in bed with no distress Pt looks much better today She is more awake today and able to hold a conversation Denies any chest pain, palpitation, dizziness and SOB Physical Exam Physical Exam: General- No acute distress Head- atraumatic Eyes- PERRL, EOMI, ENT- oropharynx clear Neck- supple, no JVD Lungs- Diminished BS Heart- irregular rhythm Abdomen- normal bowel sounds, soft, nontender Extremities- no calf tenderness, +edema Neuro- alert, oriented, PERRL, EOMI; no facial palsy; no dysarthria Skin- warm & dry Results & Data Vital Signs (Past 12 Hours) Vital Signs Temp Pulse Pulse Resp BP BP Pulse Ox 04/16/19 11:31 36.5 C 78 17 108/57 L 97 04/16/19 08:46 36.6 C 95 H 18 138/85 95 04/16/19 07:00 91 H 04/16/19 03:42 36.8 C 91 H 17 125/83 89 L 04/16/19 02:50 36.2 C L 93 H 18 132/90 96
[2019-04-16] MEDS: cephALEXin 250 MG CAP PO SCH (17:43)
[2019-04-16] MEDS: ATORVASTATIN 40 MG TAB PO SCH (20:46)
[2019-04-16] MEDS: AMLODIPINE BESYLATE 5 MG TAB PO SCH (20:46)
[2019-04-16] MEDS: CHOLECALCIFEROL 1,000 UNITS TAB PO SCH (20:47)
[2019-04-16] MEDS: ESCITALOPRAM OXALATE 10 MG TAB PO SCH (20:47)
[2019-04-16] MEDS: PANTOprazole 40 MG TAB PO SCH (20:47)
[2019-04-16] MEDS: SENNA 8.6 MG TAB PO SCH (20:48)
[2019-04-16] MEDS: clonazePAM 0.5 MG TAB PO SCH (20:51)
[2019-04-17] MEDS: HEPARIN SOD 5,000 UNIT/0.5 ML VIAL SQ SCH (08:11)
[2019-04-17] MEDS: POTASSIUM CHLORIDE 20 MEQ TABCR PO SCH (08:11)
[2019-04-17] MEDS: FERROUS SULFATE 325 MG TAB PO SCH (08:11)
[2019-04-17] MEDS: ASPIRIN 81 MG ECTAB PO SCH (08:11)
[2019-04-17] MEDS: METOPROLOL SUCC 25MG EXT REL TAB PO SCH (08:11)
[2019-04-17] MEDS: DOCUSATE SODIUM 100 MG CAP PO SCH (08:11)
[2019-04-17] MEDS: cephALEXin 250 MG CAP PO SCH (08:11)
[2019-04-17 09:04] LABS: Calcium 10.3 mg/dl (8.5-10.1); Creatinine Clr Calc Pharmacy 23.7 ml/min; Est GFR (African American) 42.2; Est GFR (Non-African American) 36.4; Potassium 4.3 mmol/L (3.5-5.1)
--- NOTE | 2019-04-17 15:03 | Hospitalist Progress Note ---
Date of Service April 17, 2019 Assessment & Plan (1) Acute decompensated heart failure: (2) SOB (shortness of breath): Present on admission with SOB CXR showed congestive heart failure Possible related to Afib with RVR BNP on admission 6290 Received IV lasix 40mg in the ER Lasix was help due to worsening creatinine Echo showed left ventricular systolic function is severely reduced. Severe global hypokinesis of the left ventricle. There was a small circumferential pericardial effusion with a moderate amount of fluid loculated in the posteriorly. Ejection fraction between 25 to 30% Metoprolol changed to metoprolol succinate, will continue case discussed with cardiology and recommended to discharge on Lasix 20mg to be taken on Tue, Tue, Tued Check BMP in 1 week Follow up with cardiology (3) Atrial fibrillation with rapid ventricular response: EKG with A Fib with RVR with HR 115 Received IV cardizem 10mg on admission Received digoxin x1 yesterday Heart Rate better control metoprolol tartrate changed to metoprolol succ 25mg BID, will continue Not anticoagulated due to history of frequent falls cardiology on board Case discussed with Cardiology and plan to start on low dose of Digoxin if HR does not improve with Metoprolol succinate Continue metoprolol 25mg BID Stable (4) UTI (urinary tract infection): Urine cx grew E.COLI Continue IV rocephin for now IV rocephin transition to oral keflex will complete course of abx with keflex (5) HTN (hypertension): Amlodipine decreased to 5mg daily Plan to add low dose of ACEI due to ECHO finding. Continue metoprolol 25mg BID Monitor BP (6) Vascular dementia: At baseline, oriented to person Per daughter, can become agitated at night and in new places stable (7) Acute renal failure superimposed on stage 3 chronic kidney disease: Mostly related to diuresis creatinine increased to 1.7, now trending down to 1.3 today Resume low dose lasix on Tue/Tue/Tued Avoid nephrotoxic agents Check BMP in 1 week (8) Hypokalemia: K 4.3 today Stable (9) T2DM (type 2 diabetes mellitus): Diet controlled DVT Ppx: SQ heparin Code status: DNR Disposition Discharge to [facility] today Follow up with your primary care provider Dr. Carrillo on 04/20 @ 10:45 AM Follow up with Cardiology in 2 to 4 weeks (Please call to schedule for the follow up appointment) Update provided to her daughter Anette (phone # [phone]) Subjective Pt was seen and examined Lying in bed with no distress Pt said that she feels tired I made the nurse fed her and she went back to sleep after eating No fever, chest pain and palpitation Physical Exam Physical Exam: General- No acute distress Head- atraumatic Eyes- PERRL, EOMI, ENT- oropharynx clear Neck- supple, no JVD Lungs- Diminished BS Heart- irregular rhythm Abdomen- normal bowel sounds, soft, nontender Extremities- no calf tenderness, +edema Neuro- PERRL, EOMI; no facial palsy; no dysarthria Skin- warm & dry Results & Data Vital Signs (Past 12 Hours) Vital Signs Temp Pulse Pulse Resp BP BP BP 04/17/19 11:28 36.4 C L 64 18 119/79 04/17/19 10:40 77 04/17/19 07:12 36.7 C 18 104/60 04/17/19 03:55 36.8 C 59 L 18 115/75 Pulse Ox 04/17/19 11:28 95 04/17/19 10:40 04/17/19 07:12 96 04/17/19 03:55 97
--- NOTE | 2019-04-18 00:35 | Discharge Summary ---
Date of Service April 17, 2019 Admission HPI Per Admitting Provider This is an 83-year-old female [facility] resident with PMH of vascular dementia, history of CAD, hx of CVA, PAF not on anticoagulation secondary to frequent falls, HTN, HLD, history of T2DM, CKD stage III, depression, GERD who presents with shortness of breath. Staff noted the patient seems short of breath this morning and was reportedly hypoxic in the 80s. No cough, chest pain or palpitations. Was brought into ED for further evaluation. History from patient limited due to advanced dementia. Endorses feeling short of breath earlier today that is since resolved. No documented hypoxia in the ED since arrival and is currently saturating at 94% on room air. ROS very limited by patient denies any fever, chills, chest pain, palpitations, nausea, vomiting or abdominal pain. Discussed with daughter, Anette, over the phone who states that patient is at cognitive baseline. Confirmed the patient has been taken off of anticoagulation due to frequent falls, with hip fracture a few months ago. Follows with Dr. Luz of [facility] cardiology group. Has minimal ambulation and is mainly confined to wheelchair. Confirmed CODE STATUS is DNR. Admission Exam Per Admitting Provider General Appearance: WD/WN, vitals as above, NAD, sitting up in bed, pleasantly confused Head: normocephalic, atraumatic Eyes: normal inspection, PERRL, conjunctivae normal, anicteric sclerae ENT: external ear and nose normal, oropharynx normal Neck: trachea midline, no thyromegaly, normal visual inspection Respiratory: faint bibasilar crackles, no wheeze or rhonchi. Normal insp/exp effort, no accessory muscle use Cardiovascular: irregular rate & rhythm, no murmur appreciated, normal peripheral pulses, no BLE edema. Vessels: no JVD or carotid bruit Chest: normal inspection of chest Abdomen/GI: normal bowel sounds, soft, nontender, no hepatosplenomegaly Extremities/Musculoskelatal: no cyanosis or clubbing, extremities motor strengt h 5/5 Neurologic: PERRL, EOMI, accommodation nl, no face palsy, no dysarthria, CN's II-XI intact bilaterally and moves all extremities Psychiatric: A+Ox1 to person, euthymic affect Skin: no rashes, normal color, warm/dry Principal Diagnosis Acute decompensated heart failure SOB (shortness of breath) Atrial fibrillation with rapid ventricular response: UTI (urinary tract infection): HTN (hypertension): Vascular dementia: Acute renal failure superimposed on stage 3 chronic kidney disease: Hypokalemia: T2DM (type 2 diabetes mellitus): Discharge Exam General- No acute distress Head- atraumatic Eyes- PERRL, EOMI, ENT- oropharynx clear Neck- supple, no JVD Lungs- Diminished BS Heart- irregular rhythm Abdomen- normal bowel sounds, soft, nontender Extremities- no calf tenderness, +edema Neuro- PERRL, EOMI; no facial palsy; no dysarthria Skin- warm & dry Discharge Data Allergies Allergy/AdvReac Type Severity Reaction Status Date / Time No Known Allergies Allergy . Verified 04/12/19 12:31 Consultations 04/12/19 17:24 ED Decision to Admit Stat 04/12/19 19:49 Consult Case Management - Discharge Planning Routine 04/13/19 12:44 Consult Cardiology Routine Ordered Studies XR chest 1V portable CLINICAL HISTORY: Dyspnea COMPARISON STUDY: 12/16/2018 FINDINGS: Moderate cardiac enlargement. Trauma pulmonary vasculature. Small bilateral pleural effusions. IMPRESSION: Congestive heart failure ACT 112: Negative or not required by law. The above report was generated using voice recognition software. It may contain grammatical, syntax or spelling errors. Electronically signed by: Francis Cedeno M.D. 04/12/2019 1:17 PM Dictated: 04/12/19 1316 Transcribed: 04/12/19 1316 Hospital Course (1) Acute decompensated heart failure: (2) SOB (shortness of breath): Present on admission with SOB CXR showed congestive heart failure Possible related to Afib with RVR BNP on admission 6290 Received IV lasix 40mg in the ER Lasix was help due to worsening creatinine Echo showed left ventricular systolic function is severely reduced. Severe global hypokinesis of the left ventricle. There was a small circumferential pericardial effusion with a moderate amount of fluid loculated in the posteriorly. Ejection fraction between 25 to 30% Metoprolol changed to metoprolol succinate, will continue case discussed with cardiology and recommended to discharge on Lasix 20mg to be taken on Mon, Wed, Frid Check BMP in 1 week Follow up with cardiology (3) Atrial fibrillation with rapid ventricular response: EKG with A Fib with RVR with HR 115 Received IV cardizem 10mg on admission Received digoxin x1 yesterday Heart Rate better control metoprolol tartrate changed to metoprolol succ 25mg BID, will continue Not anticoagulated due to history of frequent falls cardiology on board Case discussed with Cardiology and plan to start on low dose of Digoxin if HR does not improve with Metoprolol succinate Continue metoprolol 25mg BID Stable (4) UTI (urinary tract infection): Urine cx grew E.COLI Continue IV rocephin for now IV rocephin transition to oral keflex will complete course of abx with keflex (5) HTN (hypertension): Amlodipine decreased to 5mg daily Plan to add low dose of ACEI due to ECHO finding. Continue metoprolol 25mg BID Monitor BP (6) Vascular dementia: At baseline, oriented to person Per daughter, can become agitated at night and in new places stable (7) Acute renal failure superimposed on stage 3 chronic kidney disease: Mostly related to diuresis creatinine increased to 1.7, now trending down to 1.3 today Resume low dose lasix on Tue/Tue/Tued Avoid nephrotoxic agents Check BMP in 1 week (8) Hypokalemia: K 4.3 today Stable (9) T2DM (type 2 diabetes mellitus): Diet controlled DVT Ppx: SQ heparin Code status: DNR Disposition Discharge to [facility] today Follow up with your primary care provider Dr. Carrillo on 04/20 @ 10:45 AM Follow up with Cardiology in 2 to 4 weeks (Please call to schedule for the follow up appointment) Update provided to her daughter Anette (phone # [phone]) Total Time Total Time Spent Total Time Spent (In Minutes): 35 minutes Total Time Includes: Examination of the Patient, Discharge Planning, Medication Reconciliation, Communication With Other Providers and Other Discharge Plan Discharge Items Patient Disposition: Personal Half-Way Reason For Visit: SOB, AFIB WITH RVR, ACUTE CHF EXACERBATION Discharge Diagnosis: Acute decompensated heart failure SOB (shortness of breath) Atrial fibrillation with rapid ventricular response: UTI (urinary tract infection): HTN (hypertension): Vascular dementia: Acute renal failure superimposed on stage 3 chronic kidney disease: Hypokalemia: T2DM (type 2 diabetes mellitus): Activity: Resume your previous activity Non-emergency contact: Primary Care Provider and Teller Coordinator Call non-emergency contact if: your temperature is above 101 Follow-up/Referrals: Peyton [Primary Care Provider] - Diet: Heart Healthy Addtl Attending Provider Instructions: Follow up with your primary care provider Dr. Carrillo on 04/20 @ 10:45 AM Follow up with Cardiology in 2 to 4 weeks (Please call to schedule for the follow up appointment) Starting on Lasix 20mg to be taken on Tuesday/Tuesday/Tuesday. If weight increases by 2-3 pounds over 24 hrs, ok to take additional lasix 20mg Check BMP in 1 week to monitor your electrolytes and renal function Continue physical and occupational therapy Fall precaution Aspiration precaution Complete the course of the antibiotic with Keflex CHF Discharge Instructions Call your Primary Care doctor if any of the following symptoms or problems start or get worse: Shortness of breath or difficulty breathing Wake up at night short of breath Chest pain Cough Swelling of your hands, feet, or legs More fatigued or tired with your normal activity Palpitations - sudden fast heart beats WEIGHT Weigh yourself every morning after using the bathroom. Use the same scale. Wear the same amount of clothing. Write your weight down on a chart. Call your Primary Care doctor if you gain more than 2-3 pounds in 1-2 days. MEDICATIONS Use this discharge instruction sheet for medication instructions. Take your medications at the time your doctor ordered. Do not skip a dose of your medicines. If you miss a dose of medicine, take it as soon as possible, but DO NOT DOUBLE A DOSE. Read your medicine information when you get home. Know all of the side effects of your medicine. If in doubt, ask your pharmacist Call your Primary Care doctor's office if you have any side effects. Be sure all of your doctors know what medicine and herbs you take (including cold, flu, and herbal medicine). Take the following with you to your follow-up doctor appointments: Weight Chart Medication List List of questions Do not drink excessive alcohol, beer or wine. Pending Studies at Discharge: Yes Stand-Alone Forms: My Apportable, Smoking Cessation Skilled Items Patient informed of condition?: Yes DNR: Yes Discharge Level of Care: Other Communicable Disease: No Discharge Prognosis: Stable Lines: None Urinary Catheter: No Medications and DC Order Prescriptions: New cephalexin 250 mg Capsule 250 mg PO BID Qty: 5 RF: 0 metoprolol succinate 25 mg Tablet Extended Release 24 Hr 25 mg PO BID 30 Days Qty: 60 RF: 0 furosemide [Lasix] 20 mg tablet 20 mg PO UD Qty: 30 RF: 0 Continued amlodipine 10 mg Tablet 10 mg PO QPM RF: 0 aspirin 81 mg Tablet,Chewable 81 mg PO DAILY RF: 0 atorvastatin [Lipitor] 40 mg Tablet 40 mg PO HS RF: 0 calcitriol [Rocaltrol] 0.25 mcg Capsule 0.25 mcg PO MOWEFR RF: 0 docusate sodium [Colace] 100 mg Capsule 100 mg PO BID RF: 0 escitalopram oxalate [Lexapro] 10 mg Tablet 10 mg PO QPM RF: 0 omeprazole 20 mg Capsule,Delayed Release(Dr/Ec) 20 mg PO QPM RF: 0 potassium chloride [K-Tab] 20 mEq Tablet Extended Release 20 meq PO DAILY RF: 0 nitroglycerin [Nitrostat] 0.4 mg Tablet, Sublingual 0.4 mg Sublingual UD PRN (Reason: Chest Pain) RF: 0 acetaminophen [Tylenol] 325 mg Tablet 650 mg PO QID PRN (Reason: Pain) RF: 0 clonazepam 0.25 mg Tablet,Disintegrating 0.25 mg PO HS RF: 0 sennosides [senna] 8.6 mg Tablet 8.6 mg PO HS RF: 0 ferrous sulfate [Iron (ferrous sulfate)] 325 mg (65 mg iron) Tablet 325 mg PO BID RF: 0 cholecalciferol (vitamin D3) [Vitamin D3] 2,000 unit Tablet 2,000 unit PO QPM RF: 0 Discharge Orders: Discharge Order (Routine); Ordered 04/17/19 Ordered By: Gale Stubbs Admission Data Admit Date/Time: 04/12/19 18:18 Attending Provider: Gale Stubbs Admit Provider: Alphonso Gao Primary Care Provider: Caesar Todd Providers: Alphonso Gao ; Suleiman Rogers Other Interventions: Discharge Summary Assessment (RN) Last Done: 04/17/19 15:37 DC Date/Time DO NOT enter until pt leaves facility: 04/17/19 15:42
== END 2019-04-17 15:42 | disposition home or self-care (01) | DRG 291 ==
LOC: ED 11:53 → 2N 18:18 → SUATTDRO 18:18 → 2N 18:53

== ENCOUNTER 2019-05-14 11:11 | Inpatient (IN) ==
--- NOTE | 2019-05-14 11:36 | XRay Report ---
XR chest 1V portable CLINICAL HISTORY: Chest Pain dyspnea COMPARISON STUDY: 04/12/2019 FINDINGS: Mild stable cardiomegaly. Central hilar prominence consistent with a component of pulmonary arterial hypertension. Small parenchymal infiltrate left base. IMPRESSION: 1. Small parenchymal infiltrate left base. 2. Moderate stable cardiomegaly. 3. Prominent central pulmonary arterial vasculature consistent with a component of pulmonary arterial hypertension. ACT 112: Negative or not required by law. The above report was generated using voice recognition software. It may contain grammatical, syntax or spelling errors. Electronically signed by: Francis Cedeno M.D. 05/14/2019 11:35 AM
[2019-05-14] MEDS ORDERED: ALBUT/IPRATROP 3MG/0.5MG NEB 3 ML VIAL NEB STA (11:37)
[2019-05-14] MEDS ORDERED: DEXAMETHASONE SOD PHOSPHATE 10 MG in SYRINGE 0 ML IV STA (11:37)
[2019-05-14] MEDS ORDERED: DEXAMETHASONE **PF** INJ 10 MG/ML VIAL ONE (12:07)
[2019-05-14 12:16] LABS: Basophils # (auto) 0.02 K/uL (0-0.2); Basophils % (auto) 0.4 %; Eosinophils # (auto) 0.01 K/uL (0-0.5); Eosinophils % (auto) 0.2 %; Hemoglobin 11.7 g/dL (12.0-16.0); Immature Granulocytes # (auto) 0.01 K/uL (0.00-0.02); Immature Granulocytes % (auto) 0.2 %; Lymphocytes # (auto) 0.86 K/uL (1.2-3.4); Lymphocytes % (auto) 19.1 %; Mean Corpuscular Hemoglobin 33.3 pg (25-34); Mean Corpuscular Hgb Conc 33.4 g/dL (32-36); Mean Corpuscular Volume 99.7 fL (80-100); Mean Platelet Volume 11.8 fL (7.4-10.4); Monocytes # (auto) 0.34 K/uL (0.11-0.59); Monocytes % (auto) 7.5 %; Neutrophils # (auto) 3.27 K/uL (1.4-6.5); Neutrophils % (auto) 72.6 %; Platelet Count 169 K/uL (130-400); RDW Coefficient of Variation 15.1 % (11.5-14.5); RDW Standard Deviation 54.3 fL (36.4-46.3); Red Blood Count 3.51 M/uL (4.2-5.4); White Blood Count 4.51 K/uL (4.8-10.8)
[2019-05-14 12:45] LABS: Influenza A virus by PCR Neg for Influ A (Neg); Influenza B virus by PCR Neg for Influ B (Neg)
[2019-05-14 12:52] LABS: Alanine Aminotransferase 15 U/L (12-78); Albumin Globulin Ratio 0.8 (0.9-2); Albumin Level 3.1 gm/dl (3.4-5.0); Alkaline Phosphatase 89 U/L (45-117); BUN Creatinine Ratio 14.2 (10-20); Bilirubin,Total 0.6 mg/dl (0.2-1); Blood Urea Nitrogen 17 mg/dl (7-18); Calcium 9.7 mg/dl (8.5-10.1); Carbon Dioxide 22 mmol/L (21-32); Chloride 112 mmol/L (98-107); Est GFR (African American) 47.6; Est GFR (Non-African American) 41.1; Globulin 3.9 gm/dl (2.5-4.0); Glucose 106 mg/dl (70-99); Lipase 46 U/L (73-393); NT Pro B Type Natriuretic Pept 19142 pg/ml (0-1800); Phosphorus 3.4 mg/dl (2.5-4.9); Sodium 141 mmol/L (136-145); Troponin I 0.023 ng/ml (0-0.045)
[2019-05-14 13:45] LABS: Potassium 3.8 mmol/L (3.5-5.1)
[2019-05-14 13:50] LABS: Magnesium 1.7 mg/dl (1.8-2.4)
--- NOTE | 2019-05-14 14:05 | History & Physical Report ---
Date of Service May 14, 2019 Assessment & Plan (1) Acute decompensated heart failure: Admitted with cough and shortness of breath with wheezing No fever and/or chills BNP is increased to more than 19,000 without any overt CHF on x-ray We will hold of oral Lasix and give very small dose of intravenous Lasix For wheezing we will continue smaller dose of nebulized bronchodilator Serial cardiac enzymes rule out possibility of ACS Cardiology consult if the condition does not improve Present on Admission?: Yes (2) Cardiomyopathy: Has cardiomyopathy with EF of 25% (3) Atrial fibrillation with rapid ventricular response: Rate seems to be increased at 118 at presentation We will continue current dose of beta-deon Has not been on anticoagulation due to risk of falling and bleeding (4) Acute renal failure superimposed on stage 3 chronic kidney disease: Creatinine is up at 1.23 Is better compared with that of 14 April during her last admission We will continue oral fluid intake of 1500 mL daily Monitor PRP (5) UTI (urinary tract infection): UA examination is suggestive of UTI Likely the cause for her profound weakness and tiredness Urine was sent for culture Has been started on intravenous ceftriaxone (6) T2DM (type 2 diabetes mellitus): Diabetic diet SSI (7) Vascular dementia: No acute findings (8) GERD (gastroesophageal reflux disease): Continue PPI (9) HLD (hyperlipidemia): Continue statin CODE STATUS Full-as per the documents from [facility] Discussed with her as well DVT prophylaxis Subcu heparin Does not have any family members to give an update History of Present Illness Chief Complaint: Was sent in from [facility] with cough and shortness of breath and cardiac assessment Primary Care Provider: [facility] She is an 83-year-old female with significant past medical history of atrial fibrillation with cardiomyopathy with EF of 25%, CKD stage III, hypertension, chronic anemia, type 2 diabetes, GERD, history of CVA and vascular dementia was sent in from [facility] with complaints of cough and shortness of breath for the last few days. She was also sent in for cardiac assessment with a history of atrial fibrillation and RVR. She remains extremely lethargic and mild shortness of breath at rest but denies any chest pain and/or palpitation, any abdominal pain nausea and/or vomiting, any problem with her urine and her bowel habit, any numbness and/or tingling involving any of the extremities and she remains extremely weak and lethargic. In ER she was noted to have atrial fibrillation with a heart rate of 118 and increasing BNP without any significant CHF findings in chest x-ray. She was noted to have wheezing on examination. She was admitted to telemetry unit for continuation of care. Allergies Allergy/AdvReac Type Severity Reaction Status Date / Time No Known Allergies Allergy . Verified 05/14/19 11:43 Home Medications Home Medications Medication Instructions Recorded Confirmed Type aspirin 81 mg PO DAILY 01/21/18 05/14/19 History atorvastatin [Lipitor] 40 mg PO HS 01/21/18 05/14/19 History calcitriol [Rocaltrol] 0.25 mcg PO MOWEFR 01/21/18 05/14/19 History docusate sodium [Colace] 100 mg PO BID 01/21/18 05/14/19 History escitalopram oxalate [Lexapro] 10 mg PO QPM 01/21/18 05/14/19 History nitroglycerin [Nitrostat] 0.4 mg SUBLINGUAL UD PRN 01/21/18 05/14/19 History omeprazole 20 mg PO QPM 01/21/18 05/14/19 History potassium chloride [K-Tab] 20 meq PO DAILY 01/21/18 05/14/19 History acetaminophen [Tylenol] 650 mg PO QID PRN 12/16/18 05/14/19 History clonazepam 0.25 mg PO HS 12/16/18 05/14/19 History cholecalciferol (vitamin D3) 2,000 unit PO QPM 04/12/19 05/14/19 History [Vitamin D3] ferrous sulfate [Iron (ferrous 325 mg PO BID 04/12/19 05/14/19 History sulfate)] sennosides [senna] 8.6 mg PO HS 04/12/19 05/14/19 History metoprolol succinate 25 mg PO BID 30 Days #60 tab 04/17/19 05/14/19 Rx amlodipine 5 mg PO DAILY 05/14/19 05/14/19 History furosemide [Lasix] 20 mg PO 3XWK 05/14/19 05/14/19 History Past Med/Surg History Medical History 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) Chronic kidney disease stage 3 (Chronic 11/23/10) Chronic otitis externa (Chronic 11/23/10) GERD (gastroesophageal reflux disease) (Chronic) History of CVA (cerebrovascular accident) (Chronic) HLD (hyperlipidemia) (Chronic) HTN (hypertension) HTN (hypertension) T2DM (type 2 diabetes mellitus) (Chronic) Vascular dementia (Chronic) Surgical History History of appendectomy (Chronic) History of coronary artery balloon dilation (Chronic) 1994 History of partial hysterectomy (Chronic) Family History Father Stroke Mother Stroke Other Family history non-contributory Social History Preferred Language: Kitt[place] Communication Ability: Impaired Communication Ability Comment: confusion; hx dementia Computer Systems Technician Required: No Beliefs That Will Affect Care: None marital status: / Current Living Situation: [facility] Current Living Situation Comment: [facility] current occupational status: retired Other Information That Helps Us Care for You: No Feels Safe at Home: Yes Safety Concerns: Feels Safe At This Time Smoking Status: Unknown if ever smoked Hx Alcohol Use: No Hx Substance Use: No Review of Systems Review of Systems: All systems reviewed & are unremarkable except as noted in HPI & below Physical Exam Physical Exam: Minimal shortness of breath at rest with wheezing Constitutional: + acute distress (Mild shortness of breath), + ill appearing and + thin Eyes: PERRL, conjunctivae normal, anicteric sclerae ENMT: external ear and nose normal, oropharynx normal Neck: trachea midline, no thyromegaly Respiratory: + respiratory distress (Minimal shortness of breath with wheezing) Auscultation: + diminished lung sounds, + crackles (At the bases) and + wheezes (Anteriorly) Cardiovascular: Rate/Rhythm: + tachycardic; + abnormal rate and + abnormal rhythm Heart Sounds: no murmur Extremities: + edema (Trace edema bilater ally) Gastrointestinal (Abdomen): Inspection/Auscultation: abdomen normal to inspection and normal bowel sounds; abdomen not distended Percussion/Palpation: abdomen soft; abdomen nontender Musculoskeletal: No acute arthritis in any joints Neurologic: moves all extremities; no focal motor deficits Generally very weak and lethargic Lymphatic: no cervical or axillary lymphadenopathy Results & Data Vital Signs (Past 12 Hours) Vital Signs Temp Pulse Pulse Resp BP BP Pulse Ox 05/14/19 13:00 118 H 20 118/84 96 05/14/19 11:52 99 H 22 96 05/14/19 11:24 109 H 30 H 96 05/14/19 11:11 36.9 C 109 H 30 H 139/77 96 Laboratory Results Short CBC 05/14/19 Range/Units 12:00 WBC 4.51 L (4.8-10.8) K/uL Hgb 11.7 L (12.0-16.0) g/dL Hct 35.0 L (37-47) % Plt Count 169 (130-400) K/uL BMP 05/14/19 05/14/19 12:00 13:11 Sodium 141 Potassium 3.8 Chloride 112 H Carbon Dioxide 22 BUN 17 Creatinine 1.23 H Glucose 106 H Calcium 9.7 Cardiac Enzymes 05/14/19 Range/Units 12:00 Troponin I 0.023 (0-0.045) ng/ml Liver Function 05/14/19 05/14/19 Range/Units 12:00 13:11 Total Bilirubin 0.6 (0.2-1) mg/dl AST 12 L (15-37) U/L ALT 15 (12-78) U/L Alkaline Phosphatase 89 (45-117) U/L Albumin 3.1 L (3.4-5.0) gm/dl Medications Administered Current Inpatient Medications Heparin Sodium (Porcine) (Heparin Sodium (Porcine)) 5,000 units SQ Q12 CARLOS Stop: 06/13/19 20:59 Code Status & VTE Plan VTE Prophylaxis Plan VTE Prophylaxis will be ordered: Yes
[2019-05-14] MEDS ORDERED: FUROSEMIDE 40 MG/4 ML VIAL IV STA (14:06)
[2019-05-14] MEDS ORDERED: ACETAMINOPHEN 325 MG TAB PO PRN (15:16)
[2019-05-14] MEDS ORDERED: NITROGLYCERIN SL 0.4 MG/TAB TAB SL PRN (15:16)
--- NOTE | 2019-05-14 15:18 | Emergency Department Note ---
Entered by Rachel Lebron acting as a scribe for Chan Marc MD History of Present Illness General Chief complaint: Cardiac Assessment Time Seen by Provider: 05/14/19 11:15 Source: EMS Mode of arrival: EMS History of Present Illness Onset (ago): day(s) 3 Location: left (lung) and right (lung) Pain Consistency: + other (persistent) Quality: + other (cough) Associated symptoms: + cough and + other (congestion) Treatments prior to arrival: other (supplemental oxygen) The patient is an 83 year old female presenting to the Emergency Department via EMS complaining of a persistent cough staring 3 days ago. EMS reports that the patient has had a cough and congestion for the past 3 days. They state that the patient was diagnosed with A-fib 2 weeks ago. They explain that the patient regularly takes Aspirin. They note that they gave the patient supplemental oxygen [place] as her oxygen saturation on room air was 85%. They add that the patient has dementia. The HPI and ROS are limited due to dementia. Home Medications Home Medications Medication Instructions Recorded Confirmed Type aspirin 81 mg PO DAILY 01/21/18 05/14/19 History atorvastatin [Lipitor] 40 mg PO HS 01/21/18 05/14/19 History calcitriol [Rocaltrol] 0.25 mcg PO MOWEFR 01/21/18 05/14/19 History docusate sodium [Colace] 100 mg PO BID 01/21/18 05/14/19 History escitalopram oxalate [Lexapro] 10 mg PO QPM 01/21/18 05/14/19 History nitroglycerin [Nitrostat] 0.4 mg SUBLINGUAL UD PRN 01/21/18 05/14/19 History omeprazole 20 mg PO QPM 01/21/18 05/14/19 History potassium chloride [K-Tab] 20 meq PO DAILY 01/21/18 05/14/19 History acetaminophen [Tylenol] 650 mg PO QID PRN 12/16/18 05/14/19 History clonazepam 0.25 mg PO HS 12/16/18 05/14/19 History cholecalciferol (vitamin D3) 2,000 unit PO QPM 04/12/19 05/14/19 History [Vitamin D3] ferrous sulfate [Iron (ferrous 325 mg PO BID 04/12/19 05/14/19 History sulfate)] sennosides [senna] 8.6 mg PO HS 04/12/19 05/14/19 History metoprolol succinate 25 mg PO BID 30 Days #60 tab 04/17/19 05/14/19 Rx amlodipine 5 mg PO DAILY 05/14/19 05/14/19 History furosemide [Lasix] 20 mg PO 3XWK 05/14/19 05/14/19 History Allergies Allergy/AdvReac Type Severity Reaction Status Date / Time No Known Allergies Allergy . 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) Chronic kidney disease stage 3 (Chronic 11/23/10) Chronic otitis externa (Chronic 11/23/10) GERD (gastroesophageal reflux disease) (Chronic) History of CVA (cerebrovascular accident) (Chronic) HLD (hyperlipidemia) (Chronic) HTN (hypertension) HTN (hypertension) T2DM (type 2 diabetes mellitus) (Chronic) Vascular dementia (Chronic) Surgical History History of appendectomy (Chronic) History of coronary artery balloon dilation (Chronic) 1994 History of partial hysterectomy (Chronic) Family History Father Stroke Mother Stroke Other Family history non-contributory Social History Preferred Language: Bruneian Communication Ability: Impaired Communication Ability Comment: confusion; hx dementia Product/Device Technologist Required: No Beliefs That Will Affect Care: None marital status: / Current Living Situation: Long Term Current Living Situation Comment: [facility] current occupational status: retired Other Information That Helps Us Care for You: No Feels Safe at Home: Yes Safety Concerns: Feels Safe At This Time Smoking Status: Unknown if ever smoked Hx Alcohol Use: No Hx Substance Use: No Review of Systems The HPI and ROS are limited due to dementia. Physical Exam Vital Signs Vital Signs - 24 hr 05/14/19 11:11 05/14/19 11:24 05/14/19 11:52 Temperature 36.9 C Temperature Source Oral Pulse Rate 109 H 109 H Pulse Rate [Apical] 99 H Pulse Rhythm Irregular Pulse Rhythm [Apical] Respiratory Rate 30 H 30 H 22 Respiratory Effort / Characteristics Non-Labored Spontaneous Respiratory Depth Normal Respiratory Pattern Regular Blood Pressure 139/77 Blood Pressure [Right Arm] Blood Pressure Mean 97 Blood Pressure Mean [Right Arm] Pulse Oximetry 96 96 96 Oxygen Delivery Method Nasal Cannula Room Air Nasal Cannula Oxygen Flow Rate 3 3 3 Sepsis Recent Fever Within 48 Hours No Sepsis New/Unexplained Change in Mental Status No Sepsis Action Taken by Nursing No Action Required 05/14/19 13:00 Temperature Temperature Source Pulse Rate Pulse Rate [Apical] 118 H Pulse Rhythm Pulse Rhythm [Apical] Regular Respiratory Rate 20 Respiratory Effort / Characteristics Non-Labored Respiratory Depth Normal Respiratory Pattern Regular Blood Pressure Blood Pressure [Right Arm] 118/84 Blood Pressure Mean Blood Pressure Mean [Right Arm] 95 Pulse Oximetry 96 Oxygen Delivery Method Nasal Cannula Oxygen Flow Rate 2 Sepsis Recent Fever Within 48 Hours Sepsis New/Unexplained Change in Mental Status Sepsis Action Taken by Nursing GENERAL: Chronically ill appearing. Frail and cachectic. Awake, alert, in no distress HENT: Normocephalic, atraumatic. Oropharynx with dry mucous membranes and otherwise unremarkable. EYES: Normal conjunctiva. Sclera non-icteric. NECK: Mild JVD. No nuchal rigidity. FROM. RESPIRATORY: Diminished breath sounds at bases with scattered wheezes. CARDIAC: Regular rate, Irregular rhythm. Extremities warm and well perfused. Pulses equal. ABDOMEN: Soft, non-distended. No tenderness to palpation. No rebound or guardi ng. No masses. RECTAL: Deferred. MUSCULOSKELETAL: Chest examination reveals no tenderness. The back is symmetrical on inspection without obvious abnormality. There is no CVA tenderness to palpation. No joint edema. LOWER EXTREMITIES: Scant lower extremity edema. Calves are equal size bilaterally and non-tender. No discoloration. NEURO: Normal sensorium. No sensory or motor deficits noted. SKIN: No rash or jaundice noted. Course Course 1115: The patient was evaluated in room B7, and a complete history and physical examination were performed. 1235: I reevaluated the patient at this time. 1307: I discussed the patients case with Kiarra Prakash PA-C. Dr. Sima Pearson hospitalist will evaluate the patient for further management. Administered Medications Atorvastatin Calcium (Lipitor) 40 mg PO HS [facility] Stop: 06/13/19 20:59 Last Admin: 05/14/19 20:45 Dose: 40 mg Documented by: [id number] Clonazepam (Klonopin) 0.25 mg PO HS [facility] Stop: 06/13/19 20:59 Last Admin: 05/14/19 20:50 Dose: 0.25 mg Documented by: [id number] Docusate Sodium (Colace) 100 mg PO BID [facility] Stop: 06/13/19 20:59 Last Admin: 05/14/19 20:46 Dose: 100 mg Documented by: [id number] Escitalopram Oxalate (Lexapro Tab) 10 mg PO QPM [facility] Stop: 06/13/19 20:59 Last Admin: 05/14/19 20:45 Dose: 10 mg Documented by: [id number] Ferrous Sulfate (Feosol) 325 mg PO BIDM [facility] Stop: 06/13/19 16:59 Last Admin: 05/14/19 16:50 Dose: 325 mg Documented by: [id number] Heparin Sodium (Porcine) (Heparin Sodium (Porcine)) 5,000 units SQ Q12 [facility] Stop: 06/13/19 20:59 Last Admin: 05/14/19 20:47 Dose: 5,000 units Documented by: [id number] Cosigned by: [id number] Ceftriaxone Sodium 1,000 mg/ (Dextrose) 50 mls @ 100 mls/hr IV Q24H [facility]; Protocol Stop: 05/19/19 17:59 Last Infusion: 05/14/19 19:30 Dose: 0 mls/hr Documented by: [id number] Admin: 05/14/19 18:31 Dose: 100 mls/hr Documented by: [id number] Insulin Aspart (Novolog Flexpen) 0 units SC ACHS [facility] Stop: 06/13/19 16:29 Last Admin: 05/14/19 20:51 Dose: 1 units Documented by: [id number] Cosigned by: [id number] Admin: 05/14/19 18:39 Dose: 1 units Documented by: [id number] Cosigned by: [id number] Levalbuterol HCl (Xopenex 0.31mg/3 Ml) 0.31 mg NEB Q6R [facility] Stop: 06/13/19 18:59 Last Admin: 05/14/19 19:04 Dose: 0.31 mg Documented by: [id number] Metoprolol Succinate (Toprol Xl) 25 mg PO BID [facility] Stop: 06/13/19 20:59 Last Admin: 05/14/19 20:46 Dose: 25 mg Documented by: [id number] Pantoprazole Sodium (Protonix) 40 mg PO QPM [facility] Stop: 06/13/19 20:59 Last Admin: 05/14/19 20:46 Dose: 40 mg Documented by: [id number] Sennosides (Senokot) 8.6 mg PO HS [facility] Stop: 06/13/19 20:59 Last Admin: 05/14/19 20:45 Dose: 8.6 mg Documented by: [id number] Vitamin D (Vitamin D3) 2,000 units PO QPM [facility] Stop: 06/13/19 20:59 Last Admin: 05/14/19 20:46 Dose: 2,000 units Documented by: [id number] Discontinued Medications Albuterol (Duoneb) 3 ml NEB NOW STA Stop: 05/14/19 11:38 Last Admin: 05/14/19 11:52 Dose: 3 ml Documented by: [id number] Dexamethasone Sodium Phosphate (Decadron Pf) Confirm Administered Dose 10 mg .ROUTE .[facility] Stop: 05/14/19 12:08 Last Admin: 05/14/19 12:13 Dose: Not Given Documented by: [id number] Furosemide (Lasix) 20 mg IV NOW STA Stop: 05/14/19 14:07 Last Admin: 05/14/19 16:29 Dose: Not Given Documented by: [id number] Dexamethasone Sodium Phosphate (10 mg/ Syringe) 2.5 mls @ 1 mls/min IV NOW STA Stop: 05/14/19 11:39 Last Admin: 05/14/19 12:13 Dose: 1 mls/min Documented by: [id number] Furosemide 20 mg/ Syringe 2 mls @ 4 mls/min IV NOW STA Stop: 05/14/19 15:45 Last Admin: 05/14/19 16:29 Dose: 4 mls/min Documented by: [id number] Metoprolol Tartrate (Lopressor) 5 mg IV NOW STA Stop: 05/14/19 17:56 Last Admin: 05/14/19 18:19 Dose: 5 mg Documented by: [id number] Medical Decision Making Differential Diagnosis Differential diagnoses includes but is not limited to pneumonia, bronchitis, COPD/Asthma exacerbation, pneumothorax, pulmonary embolism, congestive heart failure, acute coronary syndrome. Medical Records Attestation: I reviewed the patient's medical records. Home Medications Current Medication List: was personally reviewed by me Laboratory Data Attestation: I reviewed the patient's lab results. Result diagrams: 05/14/19 12:00 05/14/19 13:11 Lab Results 05/14/19 05/14/19 05/14/19 Range/Units 12:00 12:00 12:00 WBC 4.51 L (4.8-10.8) K/uL RBC 3.51 L (4.2-5.4) M/uL Hgb 11.7 L (12.0-16.0) g/dL Hct 35.0 L (37-47) % MCV 99.7 (80-100) fL MCH 33.3 (25-34) pg MCHC 33.4 (32-36) g/dL RDW Std Deviation 54.3 H (36.4-46.3) fL RDW Coeff of Chapo 15.1 H (11.5-14.5) % Plt Count 169 (130-400) K/uL MPV 11.8 H (7.4-10.4) fL Immature Gran % (Auto) 0.2 % Neut % (Auto) 72.6 % Lymph % (Auto) 19.1 % Calloway % (Auto) 7.5 % Eos % (Auto) 0.2 % Baso % (Auto) 0.4 % Immature Gran # (Auto) 0.01 (0.00-0.02) K/uL Neut # (Auto) 3.27 (1.4-6.5) K/uL Lymph # (Auto) 0.86 L (1.2-3.4) K/uL Calloway # (Auto) 0.34 (0.11-0.59) K/uL Eos # (Auto) 0.01 (0-0.5) K/uL Baso # (Auto) 0.02 (0-0.2) K/uL PT Cancelled INR Cancelled APTT Cancelled PTT Ratio Cancelled Sodium 141 (136-145) mmol/L Potassium (3.5-5.1) mmol/L Chloride 112 H (98-107) mmol/L Carbon Dioxide 22 (21-32) mmol/L Anion Gap 7.0 (3-11) BUN 17 (7-18) mg/dl Creatinine 1.23 H (0.6-1.2) mg/dl Est Cr Clr Drug Dosing Not Reportable Est GFR ( Amer) 47.6 Est GFR (Non-Af Amer) 41.1 BUN/Creatinine Ratio 14.2 (10-20) Glucose 106 H (70-99) mg/dl Calcium 9.7 (8.5-10.1) mg/dl Phosphorus 3.4 (2.5-4.9) mg/dl Magnesium (1.8-2.4) mg/dl Total Bilirubin 0.6 (0.2-1) mg/dl AST (15-37) U/L ALT 15 (12-78) U/L Alkaline Phosphatase 89 (45-117) U/L Troponin I 0.023 (0-0.045) ng/ml NT-Pro-B Natriuret Pep 93539 H (0-1800) pg/ml Total Protein 7.0 (6.4-8.2) gm/dl Albumin 3.1 L (3.4-5.0) gm/dl Globulin 3.9 (2.5-4.0) gm/dl Albumin/Globulin Ratio 0.8 L (0.9-2) Lipase 46 L (73-393) U/L Influenza Type A (PCR) (Neg) Influenza Type B (PCR) (Neg) 05/14/19 05/14/19 05/14/19 Range/Units 12:00 13:11 13:11 WBC (4.8-10.8) K/uL RBC (4.2-5.4) M/uL Hgb (12.0-16.0) g/dL Hct (37-47) % MCV (80-100) fL MCH (25-34) pg MCHC (32-36) g/dL RDW Std Deviation (36.4-46.3) fL RDW Coeff of Chapo (11.5-14.5) % Plt Count (130-400) K/uL MPV (7.4-10.4) fL Immature Gran % (Auto) % Neut % (Auto) % Lymph % (Auto) % Calloway % (Auto) % Eos % (Auto) % Baso % (Auto) % Immature Gran # (Auto) (0.00-0.02) K/uL Neut # (Auto) (1.4-6.5) K/uL Lymph # (Auto) (1.2-3.4) K/uL Calloway # (Auto) (0.11-0.59) K/uL Eos # (Auto) (0-0.5) K/uL Baso # (Auto) (0-0.2) K/uL PT Cancelled INR Cancelled APTT Cancelled PTT Ratio Cancelled Sodium (136-145) mmol/L Potassium 3.8 (3.5-5.1) mmol/L Chloride (98-107) mmol/L Carbon Dioxide (21-32) mmol/L Anion Gap (3-11) BUN (7-18) mg/dl Creatinine (0.6-1.2) mg/dl Est Cr Clr Drug Dosing Est GFR ( Amer) Est GFR (Non-Af Amer) BUN/Creatinine Ratio (10-20) Glucose (70-99) mg/dl Calcium (8.5-10.1) mg/dl Phosphorus (2.5-4.9) mg/dl Magnesium 1.7 L (1.8-2.4) mg/dl Total Bilirubin (0.2-1) mg/dl AST 12 L (15-37) U/L ALT (12-78) U/L Alkaline Phosphatase (45-117) U/L Troponin I (0-0.045) ng/ml NT-Pro-B Natriuret Pep (0-1800) pg/ml Total Protein (6.4-8.2) gm/dl Albumin (3.4-5.0) gm/dl Globulin (2.5-4.0) gm/dl Albumin/Globulin Ratio (0.9-2) Lipase (73-393) U/L Influenza Type A (PCR) Neg for Influ A (Neg) Influenza Type B (PCR) Neg for Influ B (Neg) Imaging Data Radiologist's Impression: Radiology results as stated below per my review and the radiologist's interpretation: XR chest 1V portable CLINICAL HISTORY: Chest Pain dyspnea COMPARISON STUDY: 04/12/2019 FINDINGS: Mild stable cardiomegaly. Central hilar prominence consistent with a component of pulmonary arterial hypertension. Small parenchymal infiltrate left base. IMPRESSION: 1. Small parenchymal infiltrate left base. 2. Moderate stable cardiomegaly. 3. Prominent central pulmonary arterial vasculature consistent with a component of pulmonary arterial hypertension. ACT 112: Negative or not required by law. The above report was generated using voice recognition software. It may contain grammatical, syntax or spelling errors. Electronically signed by: Francis Cedeno M.D. 05/14/2019 11:35 AM ECG Data Attestation: I personally reviewed and interpreted this ECG as follows: Indication: + SOB/dyspnea and + weakness Rate (beats per minute): 107 Rhythm: + atrial flutter ECG Intervals/blocks: + Normal QRS (QRS 70.) and + Normal QT-c (QT-c 427.) ECG ST segments: + Nonspecific ST abnormalities ECG Findings: + PVCs and + Other (Variable AV block.) Comparison ECG Date: from () Change: no significant change Blood Pressure Blood Pressure Findings: Elevated blood pressure Blood Pressure Disposition: further management by hospitalist MARCIO Narrative The patient is a pleasant 83-year-old woman with a past medical history of dementia, cardiomyopathy with a EF of 25% CKD, hypertension, paroxysmal A. fib not on anticoagulation due to fall risk who presents emergency department from her alf facility for increased confusion, shortness of breath with cough and wheezing and elevated heart rates per HPI. Arrival the patient is chronically ill-appearing but no acute distress, afebrile with heart rate in the 100s and vital signs otherwise stable. Oxygen saturation was 87% on room air increased to 96% on 2 L nasal cannula. Patient is pleasantly confused. She has intermittent wheezes and is diminished at the bases. She has scant bilateral lower extremity edema. There is mild JVD. EKG demonstrates a flutter with variable AV block. ST abnormality is similar to prior EKG. No ST elevation. Chest x-ray with vascular congestion as well as question of small parenchymal infiltrate of the left base. WBC 4.5, nonspecific. H/H 11.7/35.0 proximal to prior range of values though decreased from recent. Platelets within normal limits. Chemistry without acidosis. Creatinine 1.2 within prior range of values. Potassium and magnesium initially hemolyzed and pending. Troponin 0.023, within normal limits but detectable and approximate 2 prior value. BNP 19K which is significantly increased from her value in March of 6. Thus, patient symptoms appear to be more related to her underlying cardiomyopathy. Diureis deferred until potassium results. Case discussed with Lili Alfaro PA-C, who evaluate the patient for admission. Impression & Plan Volume overload, CHF (congestive heart failure), Hypoxia, Hypomagnesemia, CKD (chronic kidney disease) Discharge Plan Visit Data *Final* Discharge Date/Time: 05/14/19 14:41 Chief Complaint: Cardiac Assessment ED Provider: Chan Marc Discharge Problem: Volume overload, CHF (congestive heart failure), Hypoxia, Hypomagnesemia, CKD (chronic kidney disease) Patient Disposition: Admitted As Inpatient Discharge Instructions Interventions: ED Discharge Assessment Last Done: 05/14/19 14:41 Discharge Problem: Volume overload Qualifiers: Hypervolemia type: unspecified Qualified Code(s): E87.70 - Fluid overload, unspecified CHF (congestive heart failure) Qualifiers: Heart failure type: unspecified Heart failure chronicity: unspecified Qualified Code(s): I50.9 - Heart failure, unspecified The scribe's documentation has been prepared under my direction and personally reviewed by me in its entirety. I confirm that the note above accurately reflects all work, treatment, procedures, and medical decision making performed by me.
[2019-05-14] MEDS ORDERED: GLUCOSE 10 TABS/TUBE PO PRN (15:30)
[2019-05-14] MEDS ORDERED: CARBOHYDRATES FOR HYPOGLYCEMIA PO PRN (15:30)
[2019-05-14] MEDS ORDERED: GLUCAGON FOR INJ 1 MG VIAL IM PRN (15:30)
[2019-05-14] MEDS ORDERED: GLUCOSE 40% GEL 15 GM TUBE PO PRN (15:30)
[2019-05-14] MEDS ORDERED: DEXTROSE 50% 50 ML SYRINGE IV PRN (15:30)
[2019-05-14] MEDS ORDERED: FUROSEMIDE 20 MG in SYRINGE 0 ML IV STA (15:44)
[2019-05-14] MEDS: FERROUS SULFATE 325 MG TAB PO SCH (16:50)
[2019-05-14 17:09] LABS: Appearance Urine Turbid (Clear); Bacteria Urine Automated 3+ (Negative); Bilirubin Urine Negative (Negative); Blood Urine 2+ (Negative); Color Urine Yellow; Epithelial Cell Urine Auto >30 /lpf (0-5); Glucose Urine UA Negative (Negative); Ketones Urine Negative (Negative); Leukocyte Esterase Urine 3+ (Negative); Nitrite Urine Positive (Negative); Protein Urine 2+ (Negative); Specific Gravity Urine 1.011 (1.000-1.030); Urobilinogen Urine Negative (Negative); WBC Urine Automated >30 /hpf (0-5); pH Urine 6.5 (4.5-7.5)
[2019-05-14] MEDS ORDERED: METOPROLOL TARTRATE 1 MG/ML VIAL IV STA (17:55)
[2019-05-14] MEDS: cefTRIAXone SODIUM 1,000 MG in DEXTROSE 5% 50 ML IV SCH (18:31)
[2019-05-14] MEDS: INSULIN ASPART 100 UNITS/ML 3 ML PEN SC SCH ×2 (18:39→20:51)
[2019-05-14 18:50] LABS: Partial Thromboplastin Time 27.3 Seconds (21.0-31.0); Prothrombin Time 10.4 Seconds (9.0-12.0)
[2019-05-14] MEDS: LEVALBUTEROL 0.31MG/3 ML VIAL NEB SCH (19:04)
[2019-05-14] MEDS: ATORVASTATIN 40 MG TAB PO SCH (20:45)
[2019-05-14] MEDS: SENNA 8.6 MG TAB PO SCH (20:45)
[2019-05-14] MEDS: ESCITALOPRAM OXALATE 10 MG TAB PO SCH (20:45)
[2019-05-14] MEDS: METOPROLOL SUCC 25MG EXT REL TAB PO SCH (20:46)
[2019-05-14] MEDS: DOCUSATE SODIUM 100 MG CAP PO SCH (20:46)
[2019-05-14] MEDS: PANTOprazole 40 MG TAB PO SCH (20:46)
[2019-05-14] MEDS: CHOLECALCIFEROL 1,000 UNITS 25 MCG TAB PO SCH (20:46)
[2019-05-14] MEDS: HEPARIN SOD 5,000 UNIT/0.5 ML VIAL SQ SCH (20:47)
[2019-05-14] MEDS: clonazePAM 0.5 MG TAB PO SCH (20:50)
[2019-05-15] MEDS: LEVALBUTEROL 0.31MG/3 ML VIAL NEB SCH ×4 (01:08→20:06)
[2019-05-15 06:06] LABS: Basophils # (auto) 0.02 K/uL (0-0.2); Basophils % (auto) 0.3 %; Hematocrit (blood only) 34.5 % (37-47); Hemoglobin 11.7 g/dL (12.0-16.0); Immature Granulocytes # (auto) 0.01 K/uL (0.00-0.02); Immature Granulocytes % (auto) 0.1 %; Lymphocytes # (auto) 0.96 K/uL (1.2-3.4); Lymphocytes % (auto) 14.2 %; Mean Corpuscular Hemoglobin 33.3 pg (25-34); Mean Corpuscular Hgb Conc 33.9 g/dL (32-36); Mean Corpuscular Volume 98.3 fL (80-100); Mean Platelet Volume 11.8 fL (7.4-10.4); Monocytes # (auto) 0.67 K/uL (0.11-0.59); Monocytes % (auto) 9.9 %; Neutrophils # (auto) 5.11 K/uL (1.4-6.5); Neutrophils % (auto) 75.5 %; Platelet Count 147 K/uL (130-400); RDW Coefficient of Variation 14.8 % (11.5-14.5); RDW Standard Deviation 53.4 fL (36.4-46.3); Red Blood Count 3.51 M/uL (4.2-5.4); White Blood Count 6.77 K/uL (4.8-10.8)
--- NOTE | 2019-05-15 06:11 | Electrocardiogram Report ---
Test Reason : Blood Pressure : / mmHG Vent. Rate : 107 BPM Atrial Rate : 340 BPM P-R Int : 000 ms QRS Dur : 070 ms QT Int : 320 ms P-R-T Axes : 084 043 253 degrees QTc Int : 427 ms Atrial fibrillation with rapid ventricular response with premature ventricular or aberrantly conducte d complexes Septal infarct , age undetermined Abnormal ECG When compared with ECG of 12-APR-2019 11:59, No significant change Confirmed by Jhonatan Dave ([id number]) on 05/15/2019 6:10:58 AM Referred By: Peyton Confirmed By:Jhonatan Dave
[2019-05-15 06:16] LABS: Partial Thromboplastin Time 26.3 Seconds (21.0-31.0)
[2019-05-15 06:41] LABS: Alanine Aminotransferase 9 U/L (12-78); Albumin Globulin Ratio 0.8 (0.9-2); Albumin Level 2.9 gm/dl (3.4-5.0); Aspartate Aminotransferase 10 U/L (15-37); Bilirubin,Total 0.4 mg/dl (0.2-1); Blood Urea Nitrogen 20 mg/dl (7-18); Calcium 9.5 mg/dl (8.5-10.1); Carbon Dioxide 24 mmol/L (21-32); Chloride 110 mmol/L (98-107); Est GFR (African American) 52.2; Est GFR (Non-African American) 45.1; Globulin 3.6 gm/dl (2.5-4.0); Glucose 100 mg/dl (70-99); Magnesium 1.8 mg/dl (1.8-2.4); Phosphorus 3.2 mg/dl (2.5-4.9); Potassium 3.5 mmol/L (3.5-5.1); Sodium 141 mmol/L (136-145); Total Protein 6.5 gm/dl (6.4-8.2)
[2019-05-15 06:42] LABS: Alkaline Phosphatase 79 U/L (45-117)
[2019-05-15] MEDS: INSULIN ASPART 100 UNITS/ML 3 ML PEN SC SCH ×4 (08:41→20:46)
[2019-05-15] MEDS: FERROUS SULFATE 325 MG TAB PO SCH ×2 (08:45→17:13)
[2019-05-15] MEDS: DOCUSATE SODIUM 100 MG CAP PO SCH ×2 (08:45→20:44)
[2019-05-15] MEDS: POTASSIUM CHLORIDE 20 MEQ TABCR PO SCH (08:46)
[2019-05-15] MEDS: ASPIRIN 81 MG ECTAB PO SCH (08:46)
[2019-05-15] MEDS: AMLODIPINE BESYLATE 5 MG TAB PO SCH (08:47)
[2019-05-15] MEDS: METOPROLOL SUCC 25MG EXT REL TAB PO SCH ×2 (08:48→20:44)
[2019-05-15] MEDS ORDERED: ASPIRIN 81 MG ECTAB PO SCH (09:00)
[2019-05-15] MEDS ORDERED: FUROSEMIDE 40 MG/4 ML VIAL IV SCH (09:00)
[2019-05-15] MEDS ORDERED: FUROSEMIDE 20 MG in SYRINGE 0 ML IV SCH (09:00)
[2019-05-15] MEDS: HEPARIN SOD 5,000 UNIT/0.5 ML VIAL SQ SCH ×2 (09:10→20:46)
[2019-05-15] MEDS: cefTRIAXone SODIUM 1,000 MG in DEXTROSE 5% 50 ML IV SCH (17:12)
--- NOTE | 2019-05-15 18:56 | Hospitalist Progress Note ---
Date of Service May 15, 2019 Assessment & Plan (1) Acute decompensated heart failure: Present on admission with cough associated with shortness of breath CXR showed Small parenchymal infiltrate left base. Moderate stable cardiomegaly. BNP on admission 19K Was starting on Lasix IV 20mg and PO Lasix on hold Echo showed left ventricular systolic function is severely reduced. Severe global hypokinesis of the left ventricle. There was a small circumferential pericardial effusion with a moderate amount of fluid loculated in the posteriorly. Ejection fraction between 25 to 30% Will monitor BMP while on IV lasix Will reassess for additional IV lasix in am Continue fluid restriction Cardiology consult if symptoms worsening (2) Cardiomyopathy: Has cardiomyopathy with EF of 25% Continue metoprolol, statin and aspirin Stable (3) Atrial fibrillation with rapid ventricular response: Present on admission with Afib RVR HR improves, will continue current dose of beta-deon Has not been on anticoagulation due to risk of falling and bleeding (4) CKD (chronic kidney disease): Creatinine stable Will monitor BMP closely while on IV lasix Will avoid nephrotoxic agents (5) Abnormal urinalysis: Possible related to UTI UA positive for bacteria, Leukocytes and nitrite Urine cx grew multiple organisms (motly contamination) On Rocephin day 2, will discontinued abx after 3rd dose f (6) T2DM (type 2 diabetes mellitus): Diabetic diet SSI (7) Vascular dementia: No acute findings (8) GERD (gastroesophageal reflux disease): Continue PPI (9) HLD (hyperlipidemia): Continue statin CODE STATUS Full code DVT prophylaxis Subcu heparin Admission and Anticipated Discharge Date Admission Date: May 14, 2019 Subjective Pt was seen and examined Lying in bed with no distress Pt said that she feels much better She said that her breathing and her strength are good Denies any chest pain, palpitation, dizziness and SOB Physical Exam Physical Exam: General- No acute distress Head- atraumatic Eyes- PERRL, EOMI, ENT- oropharynx clear Neck- supple, no JVD Lungs- Diminished BS Heart- irregular rhythm Abdomen- normal bowel sounds, soft, nontender Extremities- no calf tenderness Neuro- PERRL, EOMI; no facial palsy; no dysarthria Skin- warm & dry Results & Data ([facility]) Vital Signs (Past 12 Hours) Vital Signs Temp Pulse Resp BP BP Pulse Ox 05/15/19 15:35 37.1 C 111 H 18 140/77 92 05/15/19 13:30 81 16 96 05/15/19 11:14 36.7 C 96 H 18 129/59 L 94 05/15/19 07:36 37.3 C 103 H 18 124/79 93 05/15/19 07:06 109 H 18 93
[2019-05-15] MEDS: ATORVASTATIN 40 MG TAB PO SCH (20:44)
[2019-05-15] MEDS: clonazePAM 0.5 MG TAB PO SCH (20:44)
[2019-05-15] MEDS: ESCITALOPRAM OXALATE 10 MG TAB PO SCH (20:45)
[2019-05-15] MEDS: PANTOprazole 40 MG TAB PO SCH (20:45)
[2019-05-15] MEDS: SENNA 8.6 MG TAB PO SCH (20:45)
[2019-05-15] MEDS: CHOLECALCIFEROL 1,000 UNITS 25 MCG TAB PO SCH (20:45)
[2019-05-15] MEDS ORDERED: MAGNESIUM SULFATE / D5W 1 GM/100 ML BAG IV ONE (22:30)
[2019-05-15] MEDS ORDERED: POTASSIUM CHLORIDE 10 MEQ TABCR PO STA (22:30)
[2019-05-15] MEDS ORDERED: METOPROLOL TARTRATE 1 MG/ML VIAL IV STA (22:30)
[2019-05-15] MEDS ORDERED: ALBUMIN 25% 50 ML IV ONE (22:30)
[2019-05-15 23:22] LABS: BUN Creatinine Ratio 16.9 (10-20); Blood Urea Nitrogen 21 mg/dl (7-18); Calcium 9.6 mg/dl (8.5-10.1); Carbon Dioxide 24 mmol/L (21-32); Chloride 108 mmol/L (98-107); Est GFR (African American) 48.6; Est GFR (Non-African American) 41.9; Glucose 104 mg/dl (70-99); Magnesium 1.5 mg/dl (1.8-2.4); Potassium 3.3 mmol/L (3.5-5.1); Sodium 139 mmol/L (136-145)
[2019-05-15] MEDS ORDERED: POTASSIUM CHLORIDE 20 MEQ TABCR PO STA (23:58)
--- NOTE | 2019-05-16 | Communication Note ---
Date of Service: May 15, 2019 Patient noted to be in rapid A. fib around 10:30 PM. Baseline confusion as per RN. serum K 3.3 Serum magnesium 1.5 Serum creatinine 1.21 from 1.14 in AM AP Uncontrolled A. fib Secondary to electrolyte abnormalities, possible overdiuresis IV Lopressor as needed Replace electrolytes IV albumin 1 dose for now.
[2019-05-16] MEDS: MAGNESIUM SULFATE / D5W 1 GM/100 ML BAG IV SCH ×2 (00:11→02:03)
[2019-05-16] MEDS: LEVALBUTEROL 0.31MG/3 ML VIAL NEB SCH ×4 (00:38→18:58)
[2019-05-16] MEDS ORDERED: METOPROLOL TARTRATE 25 MG TAB PO STA (00:58)
[2019-05-16 07:35] LABS: BUN Creatinine Ratio 17.9 (10-20); Blood Urea Nitrogen 20 mg/dl (7-18); Calcium 9.7 mg/dl (8.5-10.1); Carbon Dioxide 24 mmol/L (21-32); Chloride 110 mmol/L (98-107); Est GFR (African American) 53.9; Est GFR (Non-African American) 46.5; Glucose 93 mg/dl (70-99); Potassium 3.9 mmol/L (3.5-5.1); Sodium 140 mmol/L (136-145)
[2019-05-16] MEDS: AMLODIPINE BESYLATE 5 MG TAB PO SCH (08:00)
[2019-05-16] MEDS: FERROUS SULFATE 325 MG TAB PO SCH ×2 (08:00→17:25)
[2019-05-16] MEDS: POTASSIUM CHLORIDE 20 MEQ TABCR PO SCH (08:00)
[2019-05-16] MEDS: ASPIRIN 81 MG ECTAB PO SCH (08:00)
[2019-05-16] MEDS: CALCITRIOL 0.25 MCG CAPSULE PO SCH (08:00)
[2019-05-16] MEDS: DOCUSATE SODIUM 100 MG CAP PO SCH ×2 (08:01→20:23)
[2019-05-16] MEDS: HEPARIN SOD 5,000 UNIT/0.5 ML VIAL SQ SCH ×2 (08:01→20:57)
[2019-05-16] MEDS: METOPROLOL SUCC 25MG EXT REL TAB PO SCH (08:01)
[2019-05-16] MEDS: INSULIN ASPART 100 UNITS/ML 3 ML PEN SC SCH ×4 (08:07→20:57)
--- NOTE | 2019-05-16 13:47 | Hospitalist Progress Note ---
Date of Service May 16, 2019 Assessment & Plan (1) Acute decompensated heart failure: Presented with cough associated with shortness of breath CXR showed Small parenchymal infiltrate left base. Moderate stable cardiomegaly. BNP on admission 19K Got lasix yesterday Will give another 40mg iv lasix Echo from 04/13/19 showed left ventricular systolic function is severely reduced. Severe global hypokinesis of the left ventricle. There was a small circumferential pericardial effusion with a moderate amount of fluid loculated in the posteriorly. Ejection fraction between 25 to 30% Will monitor BMP while on IV lasix Continue fluid restriction Will appreciate cardiology consult (2) Cardiomyopathy: Has cardiomyopathy with EF of 25% Continue metoprolol, statin and aspirin Stable (3) Atrial fibrillation with rapid ventricular response: Present on admission with Afib RVR Still has RVR Continue metoprolol Appreciate Cardiology consult Has not been on anticoagulation due to risk of falling and bleeding (4) CKD (chronic kidney disease): Creatinine stable Will monitor BMP closely while on IV lasix Avoid nephrotoxic agents (5) Abnormal urinalysis: Possible related to UTI UA positive for bacteria, Leukocytes and nitrite Urine cx grew multiple organisms (mostly contamination) Repeat Ucx Currently on rocephin (6) T2DM (type 2 diabetes mellitus): Diabetic diet SSI (7) Vascular dementia: (8) GERD (gastroesophageal reflux disease): Continue PPI (9) HLD (hyperlipidemia): Continue statin CODE STATUS Full code DVT prophylaxis Subcut heparin Admission and Anticipated Discharge Date Admission Date: May 14, 2019 Subjective Patient seen and examined. Reports weakness, poor appetite and palpitations Denied any chest pain, cough, shortness of breath today Denied any fevers, chills, nausea or vomiting Physical Exam Constitutional: + ill appearing and + thin; no acute distress Elderly woman Eyes: PERRL, conjunctivae normal, anicteric sclerae Neck: trachea midline, no thyromegaly Respiratory: normal respiratory effort; no respiratory distress Bibasilar crackles, mild expiratory wheeze Cardiovascular: Tachycardic, irregular rhythm, S1 S2, no MICHELLE, no JVD Gastrointestinal (Abdomen): normal bowel sounds, soft, nontender, no hepatosplenomegaly Neurologic: PERRL, EOMI, accommodation nl, no face palsy, no dysarthria Psychiatric: Orientation: alert Affect: euthymic affect AOx2 (person and place only) Results & Data ([facility]) Vital Signs (Past 12 Hours) Vital Signs Temp Pulse Resp BP BP Pulse Ox 05/16/19 11:10 36.6 C 119 H 16 122/77 94 05/16/19 07:40 36.6 C 112 H 24 128/75 97 05/16/19 06:53 119 H 18 100 05/16/19 04:02 36.8 C 104 H 20 113/73 93 Laboratory Results Abnormal lab results 05/15/19 05/15/19 05/15/19 Range/Units 16:19 20:33 22:48 Potassium 3.3 L (3.5-5.1) mmol/L Chloride 108 H (98-107) mmol/L BUN 21 H (7-18) mg/dl Creatinine 1.21 H (0.6-1.2) mg/dl Glucose 104 H (70-99) mg/dl POC Glucose 102 H 107 H (70-99) mg/dl Magnesium 1.5 L (1.8-2.4) mg/dl 05/16/19 05/16/19 05/16/19 Range/Units 06:43 06:43 08:06 Potassium (3.5-5.1) mmol/L Chloride 110 H (98-107) mmol/L BUN 20 H (7-18) mg/dl Creatinine (0.6-1.2) mg/dl Glucose (70-99) mg/dl POC Glucose 100 H (70-99) mg/dl Magnesium 2.9 H (1.8-2.4) mg/dl 05/16/19 Range/Units 11:33 Potassium (3.5-5.1) mmol/L Chloride (98-107) mmol/L BUN (7-18) mg/dl Creatinine (0.6-1.2) mg/dl Glucose (70-99) mg/dl POC Glucose 103 H (70-99) mg/dl Magnesium (1.8-2.4) mg/dl
--- NOTE | 2019-05-16 13:55 | Cardiology Consultation ---
Date of Consultation May 16, 2019 Assessment & Plan (1) Bronchitis: (2) Acute on chronic heart failure with reduced ejection fraction and diastolic dysfunction: (3) Chronic atrial fibrillation with rapid ventricular response: (4) CKD (chronic kidney disease): (5) Cardiomyopathy: 83-year-old female admitted with shortness of breath and cough. Treated with IV diuretic therapy due to elevated BNP on admission. Fluid balance negative more than 1400 cc with mild weight loss. Oxygen saturation is stable on room air. Renal function remains stable /near baseline creatinine. No signs of volume overload per physical exam. Chest x-ray without pulmonary edema. Heart rate elevated in the setting of cough and respiratory insufficiency. Recommend discontinuation of metoprolol succinate in favor of metoprolol tartrate 25 mg 3 times daily. Will transition back to succinate formulation at the time of discharge. Patient is not a strong candidate for long-term anticoagulation due to fall risk. Agree with diuretic therapy today, however, recommend holding a.m. dose of furosemide pending review of a.m. labs. Follow daily weight, fluid balance, GFR, and electrolytes. Consider adding nebulizer, low-dose corticosteroids, and/or mucolytic therapy with pulmonary toilet given physical exam findings consistent with bronchitis. History of Present Illness Reason for Consultation: Atrial fibrillation with rapid ventricular response Congestive heart failure Attending Physician: Bree Noonan MD History of Present Illness 83-year-old female admitted with shortness of breath and rapid A. fib. She is a poor historian due to underlying dementia. Reports cough without sputum production. No orthopnea or paroxysmal nocturnal dyspnea. Denies chest pain or palpitations. Denies fever, chills, dysuria, or sick contacts. Allergies Allergy/AdvReac Type Severity Reaction Status Date / Time No Known Allergies Allergy . Verified 05/14/19 11:43 Home Medications Home Medications Medication Instructions Recorded Confirmed Type aspirin 81 mg PO DAILY 01/21/18 05/14/19 History atorvastatin [Lipitor] 40 mg PO HS 01/21/18 05/14/19 History calcitriol [Rocaltrol] 0.25 mcg PO MOWEFR 01/21/18 05/14/19 History docusate sodium [Colace] 100 mg PO BID 01/21/18 05/14/19 History escitalopram oxalate [Lexapro] 10 mg PO QPM 01/21/18 05/14/19 History nitroglycerin [Nitrostat] 0.4 mg SUBLINGUAL UD PRN 01/21/18 05/14/19 History omeprazole 20 mg PO QPM 01/21/18 05/14/19 History potassium chloride [K-Tab] 20 meq PO DAILY 01/21/18 05/14/19 History acetaminophen [Tylenol] 650 mg PO QID PRN 12/16/18 05/14/19 History clonazepam 0.25 mg PO HS 12/16/18 05/14/19 History cholecalciferol (vitamin D3) 2,000 unit PO QPM 04/12/19 05/14/19 History [Vitamin D3] ferrous sulfate [Iron (ferrous 325 mg PO BID 04/12/19 05/14/19 History sulfate)] sennosides [senna] 8.6 mg PO HS 04/12/19 05/14/19 History metoprolol succinate 25 mg PO BID 30 Days #60 tab 04/17/19 05/14/19 Rx amlodipine 5 mg PO DAILY 05/14/19 05/14/19 History furosemide [Lasix] 20 mg PO 3XWK 05/14/19 05/14/19 History Patient History Medical History 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) Chronic kidney disease stage 3 (Chronic 11/23/10) Chronic otitis externa (Chronic 11/23/10) GERD (gastroesophageal reflux disease) (Chronic) History of CVA (cerebrovascular accident) (Chronic) HLD (hyperlipidemia) (Chronic) HTN (hypertension) HTN (hypertension) T2DM (type 2 diabetes mellitus) (Chronic) Vascular dementia (Chronic) Surgical History History of appendectomy (Chronic) History of coronary artery balloon dilation (Chronic) 1994 History of partial hysterectomy (Chronic) Family History Father Stroke Mother Stroke Other Family history non-contributory Social History Preferred Language: Citizen Of [place] Communication Ability: Impaired Communication Ability Comment: confusion; hx dementia Director Medicare Sales Required: No Beliefs That Will Affect Care: None marital status: / Current Living Situation: Assisted Current Living Situation Comment: [place] current occupational status: retired Other Information That Helps Us Care for You: No Feels Safe at Home: Yes Safety Concerns: Feels Safe At This Time Smoking Status: Unknown if ever smoked Hx Alcohol Use: No Hx Substance Use: No Review of Systems Review of Systems: Unobtainable due to mental health condition and Unobtainable due to cognitive status Physical Exam Constitutional: well developed, well nourished, + ill appearing and + thin Respiratory: Auscultation: + rhonchi and + wheezes; no crackles and no rales Cardiovascular: Rate/Rhythm: + tachycardic and + irregularly irregular Heart Sounds: normal S1 and normal S2 Vessels: no JVD and no carotid bruit Extremities: no edema Gastrointestinal (Abdomen): Inspection/Auscultation: abdomen normal to inspection and normal bowel sounds; abdomen not distended Percussion/Palpation: abdomen soft; abdomen nontender, no guarding and abdomen not rigid Musculoskeletal: Head/Neck/Chest: normocephalic and head atraumatic Extremities: no cyanosis and no clubbing Skin: no rashes, warm and dry Neurologic: moves all extremities; no focal motor deficits Psychiatric: Mood: + irritable mood Insight: + poor insight Judgement: + poor judgement Results & Data ([facility]) Vital Signs (Past 12 Hours) Vital Signs Temp Pulse Resp BP BP Pulse Ox 05/16/19 11:10 36.6 C 119 H 16 122/77 94 05/16/19 07:40 36.6 C 112 H 24 128/75 97 05/16/19 06:53 119 H 18 100 05/16/19 04:02 36.8 C 104 H 20 113/73 93 (1) Cardiomyopathy Cardiomyopathy type: other Qualified Code(s): I42.8 - Other cardiomyopathies
[2019-05-16] MEDS ORDERED: FUROSEMIDE 40 MG in SYRINGE 0 ML IV ONE (14:00)
[2019-05-16 14:11] LABS: Hematocrit (blood only) 32.4 % (37-47); Mean Corpuscular Hemoglobin 33.4 pg (25-34); Mean Corpuscular Volume 98.5 fL (80-100); Mean Platelet Volume 11.9 fL (7.4-10.4); Platelet Count 166 K/uL (130-400); RDW Coefficient of Variation 14.8 % (11.5-14.5); RDW Standard Deviation 53.2 fL (36.4-46.3); Red Blood Count 3.29 M/uL (4.2-5.4)
--- NOTE | 2019-05-16 14:30 | XRay Report ---
XR chest 1V portable CLINICAL HISTORY: Cough and abnormal chest exam COMPARISON STUDY: 05/14/2019 FINDINGS: Mild stable cardiomegaly. Lungs are clear. Diaphragms are smooth. IMPRESSION: Mild stable cardiomegaly. Otherwise negative study. ACT 112: Negative or not required by law. The above report was generated using voice recognition software. It may contain grammatical, syntax or spelling errors. Electronically signed by: Francis Cedeno M.D. 05/16/2019 2:28 PM
[2019-05-16] MEDS: METOPROLOL TARTRATE 25 MG TAB PO SCH ×2 (15:28→21:00)
[2019-05-16] MEDS: cefTRIAXone SODIUM 1,000 MG in DEXTROSE 5% 50 ML IV SCH (17:35)
[2019-05-16] MEDS: ATORVASTATIN 40 MG TAB PO SCH (20:24)
[2019-05-16] MEDS: ESCITALOPRAM OXALATE 10 MG TAB PO SCH (20:24)
[2019-05-16] MEDS: PANTOprazole 40 MG TAB PO SCH (20:38)
[2019-05-16] MEDS: clonazePAM 0.5 MG TAB PO SCH (20:38)
[2019-05-16] MEDS: CHOLECALCIFEROL 1,000 UNITS 25 MCG TAB PO SCH (20:38)
[2019-05-16] MEDS: SENNA 8.6 MG TAB PO SCH (20:38)
[2019-05-17] MEDS: LEVALBUTEROL 0.31MG/3 ML VIAL NEB SCH ×4 (00:30→20:04)
[2019-05-17 07:41] LABS: Hemoglobin 11.7 g/dL (12.0-16.0); Mean Corpuscular Hemoglobin 33.2 pg (25-34); Mean Corpuscular Hgb Conc 33.4 g/dL (32-36); Mean Corpuscular Volume 99.4 fL (80-100); Mean Platelet Volume 11.9 fL (7.4-10.4); Platelet Count 175 K/uL (130-400); RDW Coefficient of Variation 14.9 % (11.5-14.5); RDW Standard Deviation 53.7 fL (36.4-46.3); Red Blood Count 3.52 M/uL (4.2-5.4); White Blood Count 5.33 K/uL (4.8-10.8)
[2019-05-17 08:09] LABS: BUN Creatinine Ratio 19.4 (10-20); Blood Urea Nitrogen 22 mg/dl (7-18); Calcium 10.1 mg/dl (8.5-10.1); Carbon Dioxide 25 mmol/L (21-32); Chloride 109 mmol/L (98-107); Est GFR (African American) 52.8; Est GFR (Non-African American) 45.5; Glucose 99 mg/dl (70-99); Potassium 3.7 mmol/L (3.5-5.1); Sodium 141 mmol/L (136-145)
[2019-05-17] MEDS: HEPARIN SOD 5,000 UNIT/0.5 ML VIAL SQ SCH ×2 (08:19→20:50)
[2019-05-17] MEDS: METOPROLOL TARTRATE 25 MG TAB PO SCH ×3 (08:19→20:51)
[2019-05-17] MEDS: ASPIRIN 81 MG ECTAB PO SCH (08:19)
[2019-05-17] MEDS: POTASSIUM CHLORIDE 20 MEQ TABCR PO SCH (08:19)
[2019-05-17] MEDS: FERROUS SULFATE 325 MG TAB PO SCH ×2 (08:19→17:44)
[2019-05-17] MEDS: AMLODIPINE BESYLATE 5 MG TAB PO SCH (08:19)
[2019-05-17] MEDS: DOCUSATE SODIUM 100 MG CAP PO SCH ×2 (08:20→20:50)
[2019-05-17] MEDS: INSULIN ASPART 100 UNITS/ML 3 ML PEN SC SCH ×4 (08:20→21:08)
--- NOTE | 2019-05-17 12:54 | Cardiology Progress Note ---
Date of Service May 17, 2019 Assessment & Plan (1) Bronchitis: (2) Acute on chronic heart failure with reduced ejection fraction and diastolic dysfunction: (3) Chronic atrial fibrillation with rapid ventricular response: (4) CKD (chronic kidney disease): (5) Cardiomyopathy: Volume status improved. Continue Lasix 20 mg daily. Repeat basic metabolic panel in a.m. Monitor telemetry. Continue metoprolol tartrate 25 mg 3 times daily. Consider titration to 50 mg twice daily pending review of telemetry over the next 48 hours. Patient is not a candidate for long-term anticoagulation due to fall risk. Treatment of bronchitis/URI as per internal medicine. Subjective Patient seen and examined the bedside. Resting comfortably today. Oxygen saturation within normal limits on room air. Heart rate remains borderline elevated on telemetry. Patient denies chest pain, shortness of breath, or palpitations. Fluid balance is negative over the past 24 hours. Patient offers no concerns/complaints. She is a poor historian due to underlying dementia. Review of Systems Review of Systems: Unobtainable due to cognitive status Physical Exam Constitutional: well developed, well nourished, + ill appearing and + thin Respiratory: Auscultation: + rhonchi; no crackles, no rales and no wheezes Cardiovascular: Rate/Rhythm: + irregularly irregular Heart Sounds: normal S1 and normal S2 Vessels: no JVD and no carotid bruit Extremities: no edema Gastrointestinal (Abdomen): Inspection/Auscultation: abdomen normal to inspection and normal bowel sounds; abdomen not distended Percussion/Palpation: abdomen soft; abdomen nontender, no guarding and abdomen not rigid Musculoskeletal: Head/Neck/Chest: normocephalic and head atraumatic Extremities: no cyanosis and no clubbing Skin: no rashes, warm and dry Neurologic: moves all extremities; no focal motor deficits Psychiatric: Mood: + irritable mood Insight: + poor insight Judgement: + poor judgement Results & Data Vital Signs (Past 12 Hours) Vital Signs Temp Pulse Resp BP BP Pulse Ox 05/17/19 12:20 36.6 C 88 18 118/60 96 05/17/19 07:39 36.8 C 86 18 120/63 95 05/17/19 07:26 81 18 97 05/17/19 03:36 36.4 C L 89 16 115/67 91 (1) Cardiomyopathy Cardiomyopathy type: other Qualified Code(s): I42.8 - Other cardiomyopathies
[2019-05-17] MEDS: FUROSEMIDE 20 MG in SYRINGE 0 ML IV SCH (14:37)
--- NOTE | 2019-05-17 15:06 | Hospitalist Progress Note ---
Date of Service May 17, 2019 Assessment & Plan (1) Acute decompensated heart failure: Presented with cough associated with shortness of breath CXR showed Small parenchymal infiltrate left base. Moderate stable cardiomegaly. BNP on admission 19K Echo from 04/13/19 showed left ventricular systolic function is severely reduced. Severe global hypokinesis of the left ventricle. There was a small circumferential pericardial effusion with a moderate amount of fluid loculated in the posteriorly. Ejection fraction between 25 to 30% Will monitor BMP while on IV lasix Continue fluid restriction Discussed with Hydrator Operator. Patient is optimized hemodynamically. Will plan to discharge on lasix 20mg po Patient appears to also has had functional decline over time. Will get dietitian/nutrition eval to optimize intake PT/OT eval (2) Cardiomyopathy: Has cardiomyopathy with EF of 25% Continue metoprolol, statin and aspirin Stable (3) Atrial fibrillation with rapid ventricular response: Present on admission with Afib RVR Currently on metoprolol tartarate 25 tid Rate is better controlled. Discussed with Hydrator Operator. Will plan possible discharge on po Metoprolol XL 50 in AM and 25 in PM Has not been on anticoagulation due to risk of falling and bleeding (4) CKD (chronic kidney disease): Creatinine stable Will monitor BMP closely while on lasix Avoid nephrotoxic agents (5) Abnormal urinalysis: Possible related to UTI UA positive for bacteria, Leukocytes and nitrite Urine cx grew multiple organisms (mostly contamination) Repeat Ucx is negative (after getting some doses of iv ceftriaxone) Ceftriaxone discontinued (6) T2DM (type 2 diabetes mellitus): Diabetic diet SSI (7) Vascular dementia: No acute findings (8) GERD (gastroesophageal reflux disease): Continue PPI (9) HLD (hyperlipidemia): Continue statin CODE STATUS Full code DVT prophylaxis Subcut heparin Admission and Anticipated Discharge Date Admission Date: May 14, 2019 Subjective Patient seen and examined. Patient not saying much. Denied any complaints. RN reported that patient has been sleeping and laying in bed most of the day. She has also not been eating much and only usually eats a little bit of pizza. Spoke with patient's daughter who reported that patient has been less active over the past couple of months and has been declining since recent hospitalization,, mostly stays in bed and occasionally walks around with a walk er.. She also has not been eating as much. She also confirmed that patient has dementia very bad short-term memory loss Review of Systems Review of Systems: Unobtainable due to cognitive status Physical Exam Constitutional: + ill appearing (Chronically), + thin and + cachectic Respiratory: normal respiratory effort, lungs clear to auscultation Cardiovascular: Irregular rate and rhythm, s1 s2, no JVD,no pedal edema Gastrointestinal (Abdomen): normal bowel sounds, soft, nontender, no hepatosplenomegaly Neurologic: PERRL, EOMI, accommodation nl, no face palsy, no dysarthria Psychiatric: Affect: + flat affect Aox1, appears generally weak, moves all extremities, no focal deficits noted Results & Data ([facility]) Vital Signs (Past 12 Hours) Vital Signs Temp Pulse Resp BP BP Pulse Ox 05/17/19 12:59 100 H 20 90 05/17/19 12:20 36.6 C 88 18 118/60 96 05/17/19 07:39 36.8 C 86 18 120/63 95 05/17/19 07:26 81 18 97 05/17/19 03:36 36.4 C L 89 16 115/67 91 Laboratory Results Abnormal lab results 05/16/19 05/17/19 05/17/19 Range/Units 20:35 07:22 07:22 RBC 3.52 L (4.2-5.4) M/uL Hgb 11.7 L (12.0-16.0) g/dL Hct 35.0 L (37-47) % RDW Std Deviation 53.7 H (36.4-46.3) fL RDW Coeff of Chapo 14.9 H (11.5-14.5) % MPV 11.9 H (7.4-10.4) fL Chloride 109 H (98-107) mmol/L BUN 22 H (7-18) mg/dl POC Glucose 105 H (70-99) mg/dl 05/17/19 05/17/19 05/17/19 Range/Units 08:18 11:11 16:20 RBC (4.2-5.4) M/uL Hgb (12.0-16.0) g/dL Hct (37-47) % RDW Std Deviation (36.4-46.3) fL RDW Coeff of Chapo (11.5-14.5) % MPV (7.4-10.4) fL Chloride (98-107) mmol/L BUN (7-18) mg/dl POC Glucose 101 H 105 H 114 H (70-99) mg/dl (1) Cardiomyopathy Cardiomyopathy type: other Qualified Code(s): I42.8 - Other cardiomyopathies
[2019-05-17] MEDS: CHOLECALCIFEROL 1,000 UNITS 25 MCG TAB PO SCH (20:49)
[2019-05-17] MEDS: PANTOprazole 40 MG TAB PO SCH (20:50)
[2019-05-17] MEDS: ATORVASTATIN 40 MG TAB PO SCH (20:50)
[2019-05-17] MEDS: ESCITALOPRAM OXALATE 10 MG TAB PO SCH (20:51)
[2019-05-17] MEDS: clonazePAM 0.5 MG TAB PO SCH (20:53)
[2019-05-17] MEDS: SENNA 8.6 MG TAB PO SCH (20:53)
[2019-05-18] MEDS: LEVALBUTEROL 0.31MG/3 ML VIAL NEB SCH ×2 (00:36→07:19)
[2019-05-18 07:29] LABS: Hematocrit (blood only) 35.9 % (37-47); Hemoglobin 11.9 g/dL (12.0-16.0); Mean Corpuscular Hemoglobin 33.1 pg (25-34); Mean Corpuscular Hgb Conc 33.1 g/dL (32-36); Mean Corpuscular Volume 99.7 fL (80-100); Mean Platelet Volume 11.9 fL (7.4-10.4); Platelet Count 208 K/uL (130-400); RDW Coefficient of Variation 14.5 % (11.5-14.5); RDW Standard Deviation 53.5 fL (36.4-46.3); White Blood Count 6.61 K/uL (4.8-10.8)
[2019-05-18 08:07] LABS: BUN Creatinine Ratio 19.7 (10-20); Blood Urea Nitrogen 21 mg/dl (7-18); Calcium 10.3 mg/dl (8.5-10.1); Carbon Dioxide 26 mmol/L (21-32); Chloride 109 mmol/L (98-107); Est GFR (African American) 55.8; Est GFR (Non-African American) 48.1; Glucose 91 mg/dl (70-99); Potassium 3.6 mmol/L (3.5-5.1); Sodium 142 mmol/L (136-145)
[2019-05-18] MEDS: METOPROLOL TARTRATE 25 MG TAB PO SCH ×3 (08:20→20:53)
[2019-05-18] MEDS: POTASSIUM CHLORIDE 20 MEQ TABCR PO SCH (08:20)
[2019-05-18] MEDS: FUROSEMIDE 20 MG in SYRINGE 0 ML IV SCH (08:20)
[2019-05-18] MEDS: CALCITRIOL 0.25 MCG CAPSULE PO SCH (08:21)
[2019-05-18] MEDS: DOCUSATE SODIUM 100 MG CAP PO SCH ×2 (08:21→20:55)
[2019-05-18] MEDS: AMLODIPINE BESYLATE 5 MG TAB PO SCH (08:21)
[2019-05-18] MEDS: FERROUS SULFATE 325 MG TAB PO SCH ×2 (08:21→17:18)
[2019-05-18] MEDS: INSULIN ASPART 100 UNITS/ML 3 ML PEN SC SCH ×4 (08:21→20:30)
[2019-05-18] MEDS: ASPIRIN 81 MG ECTAB PO SCH (08:21)
[2019-05-18] MEDS: HEPARIN SOD 5,000 UNIT/0.5 ML VIAL SQ SCH ×2 (08:22→20:53)
[2019-05-18] MEDS ORDERED: LEVALBUTEROL 0.31MG/3 ML VIAL NEB PRN (09:25)
--- NOTE | 2019-05-18 10:49 | Palliative Care Consultation ---
Date of Consultation May 18, 2019 Assessment & Plan (1) Goals of care, counseling/discussion: -83 year old female patient with PMH CHF with EF 25-30%, CKD stage III, vascular dementia, GERD, CVA, and others, presented to the hospital a few days ago from her personal assisted with increased SOB and cough. She was found to be in acute on chronic heart failure. BNP was elevated at 19k, creatinine 1.23. Patient is usually on lasix 20mg 3x/week, but is being diuresed with IV furosemide 20mg IV daily. Creatinine is improved to 1.08. Volume status improved. Patient also has atrial fibrillation and her metoprolol dose is being titrated, cardiology is following. Patient is thin, has poor PO intake, has dementia, does not get out of bed much since admission, appears to have failure to thrive. Palliative care is consulted to discuss goals of care. -Met with patient in room 243. She is tired, but does wake up when spoken to. She briefly made eye contact then closed her eyes again. She said "no" to pain, SOB, or discomfort. However, would not answer some questions. She told me she w as in the hospital. -Attempted to call patient's daughter, Anette, but no answer. Left voicemail. -Per case management's notes, plan is for patient to return to [facility]. However, Pickett catheter needs to be removed first. -In review of patient's chart, she has multiple medical problems, most obviously the significant heart failure with EF 25-30%. The status of her dementia is difficult to assess in one visit and I'm completely unaware of her baseline. Given the patient's other comorbidities including the atrial fibrillation and chronic kidney disease, her long-term prognosis is probably not great. In additional to that, it seems that patient is not eating/drinking well, and has limited functional status. -Will await call from patient's daughter to further discuss goals of care. Need to address code status as well. (2) Acute on chronic heart failure with reduced ejection fraction and diastolic dysfunction: (3) Chronic atrial fibrillation with rapid ventricular response: (4) Vascular dementia: Supervising Physician Co-Signing Physician Notes Chart reviewed, patient seen and examined. Collaborated with ANGEL Duran as well as attending physician. Patient's daughter, Anette at bedside. PE: Patient awake and alert, no acute distress HEENT: EOMI, hearing grossly within normal limits Respirations: Unlabored, no rhonchi or wheezes CV: Regular rate, irregular rhythm Abdomen: Soft, nontender Extremities: Thin and cachectic Neuro: Positive cognitive deficits Agree with above note, assessment and plan as per ANGEL Duran. Spoke with daughter at length regarding prognosis with dementia, recurrent UTIs as well as patient's wishes given her current condition. Discussed when hospice referral would be helpful. Daughter voiced understanding and plans to speak with her brother regarding future care. History of Present Illness Attending Physician: Bree Noonan MD History of Present Illness This 83 year old female patient with PMH CHF with EF 25-30%, CKD stage III, vascular dementia, GERD, CVA, and others, presented to the hospital a few days ago from her personal assisted with increased SOB and cough. She was found to be in acute on chronic heart failure. BNP was elevated at 19k, creatinine 1.23. Patient is usually on lasix 20mg 3x/week, but is being diuresed with IV furosemide 20mg IV daily. Creatinine is improved to 1.08. Volume status improved. Patient also has atrial fibrillation and her metoprolol dose is being titrated, cardiology is following. Patient is thin, has poor PO intake, has dementia, does not get out of bed much since admission, appears to have failure to thrive. Palliative care is consulted to discuss goals of care. Thank you kindly for this consult. Palliative care team will follow as needed. Allergies Allergy/AdvReac Type Severity Reaction Status Date / Time No Known Allergies Allergy . Verified 05/14/19 11:43 Home Medications Home Medications Medication Instructions Recorded Confirmed Type aspirin 81 mg PO DAILY 01/21/18 05/14/19 History atorvastatin [Lipitor] 40 mg PO HS 01/21/18 05/14/19 History calcitriol [Rocaltrol] 0.25 mcg PO MOWEFR 01/21/18 05/14/19 History docusate sodium [Colace] 100 mg PO BID 01/21/18 05/14/19 History escitalopram oxalate [Lexapro] 10 mg PO QPM 01/21/18 05/14/19 History nitroglycerin [Nitrostat] 0.4 mg SUBLINGUAL UD PRN 01/21/18 05/14/19 History omeprazole 20 mg PO QPM 01/21/18 05/14/19 History potassium chloride [K-Tab] 20 meq PO DAILY 01/21/18 05/14/19 History acetaminophen [Tylenol] 650 mg PO QID PRN 12/16/18 05/14/19 History clonazepam 0.25 mg PO HS 12/16/18 05/14/19 History cholecalciferol (vitamin D3) 2,000 unit PO QPM 04/12/19 05/14/19 History [Vitamin D3] ferrous sulfate [Iron (ferrous 325 mg PO BID 04/12/19 05/14/19 History sulfate)] sennosides [senna] 8.6 mg PO HS 04/12/19 05/14/19 History metoprolol succinate 25 mg PO BID 30 Days #60 tab 04/17/19 05/14/19 Rx amlodipine 5 mg PO DAILY 05/14/19 05/14/19 History furosemide [Lasix] 20 mg PO 3XWK 05/14/19 05/14/19 History Patient History Medical History (Updated 05/18/19 @ 12:09 by Suleiman Rogers DO) 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) Chronic kidney disease stage 3 (Chronic 11/23/10) Chronic otitis externa (Chronic 11/23/10) GERD (gastroesophageal reflux disease) (Chronic) Goals of care, counseling/discussion History of CVA (cerebrovascular accident) (Chronic) HLD (hyperlipidemia) (Chronic) HTN (hypertension) HTN (hypertension) T2DM (type 2 diabetes mellitus) (Chronic) Vascular dementia (Chronic) Surgical History History of appendectomy (Chronic) History of coronary artery balloon dilation (Chronic) 1994 History of partial hysterectomy (Chronic) Family History Father Stroke Mother Stroke Other Family history non-contributory Social History Preferred Language: Chinese Communication Ability: Impaired Communication Ability Comment: confusion; hx dementia Gas Worker Required: No Beliefs That Will Affect Care: None marital status: / Current Living Situation: [facility] Current Living Situation Comment: [place] current occupational status: retired Other Information That Helps Us Care for You: No Feels Safe at Home: Yes Safety Concerns: Feels Safe At This Time Smoking Status: Unknown if ever smoked Hx Alcohol Use: No Hx Substance Use: No Review of Systems Review of Systems: Denies pain, SOB, or edema. Full ROS not obtained due to drowsiness Physical Exam Constitutional: + thin and + frail appearing; no acute distress ENMT: external ear and nose normal, oropharynx normal Respiratory: normal respiratory effort; no labored breathing Auscultation: lungs clear to auscultation bilaterally Cardiovascular: Rate/Rhythm: regular rate, + tachycardic and + irregularly irregular Gastrointestinal (Abdomen): Inspection/Auscultation: abdomen normal to inspection Percussion/Palpation: abdomen soft Neurologic: moves all extremities, awake (but very tired) and + confused Psychiatric: Orientation: oriented to person and oriented to place; + not oriented to time Insight: + limited insight Results & Data Vital Signs (Past 12 Hours) Vital Signs Temp Pulse Resp BP Pulse Ox 05/18/19 07:46 36.3 C L 97 H 17 113/75 99 05/18/19 07:19 102 H 18 97 05/18/19 04:15 36.4 C L 93 H 20 125/67 89 L 05/18/19 00:38 85 18 98 05/18/19 00:16 36.8 C 112 H 20 114/74 90 Coding Level of Care Code 65191 Inpt Consult Level 3 Diagnoses Goals of care, counseling/discussion Z71.89 Acute on chronic heart failure with reduced ejection fraction and diastolic dysfunction I50.43 Chronic atrial fibrillation with rapid ventricular response I48.20 Vascular dementia F01.50 Time Spent (min) 80 Time Spent Midlevel 50 minutes with >50% of the time spent at bedside with patient discussing condition and GOC. Attending Spent 30 minutes in addition to the 50 minutes spent by ANGEL Duran for a total of 80 minutes with greater than 50% of the time spent at bedside discussing goals of care.
--- NOTE | 2019-05-18 12:10 | Cardiology Progress Note ---
Date of Service May 18, 2019 Assessment & Plan (1) Bronchitis: (2) Acute on chronic heart failure with reduced ejection fraction and diastolic dysfunction: (3) Chronic atrial fibrillation with rapid ventricular response: (4) CKD (chronic kidney disease): (5) Failure to thrive in adult: (6) Cardiomyopathy: Discontinue IV furosemide. Begin oral furosemide 20 mg daily in a.m. Titrate metoprolol to 25 mg every 6 hours to improve rate control. Transition to 50 mg twice daily at time of discharge. Patient is not a candidate for long- term anticoagulation. Palliative care consultation appreciated. Cardiology will sign off. Please call with questions. Subjective Patient seen and examined the bedside. Opens her eyes to verbal stimuli, however, does not answer questions. She is uncooperative with physical exam. Heart rate remains mildly elevated on telemetry at rest. Fluid balance -750 cc overnight. Continued weight loss noted. Poor p.o. intake reported by nursing. Creatinine stable. She has not been out of bed. Palliative care consulted. Physical Exam Constitutional: well developed, well nourished, + ill appearing and + thin Respiratory: Auscultation: + rhonchi; no crackles, no rales and no wheezes Cardiovascular: Rate/Rhythm: + tachycardic and + irregularly irregular Heart Sounds: normal S1 and normal S2 Vessels: no JVD and no carotid bruit Extremities: no edema Gastrointestinal (Abdomen): Inspection/Auscultation: abdomen normal to inspection and normal bowel sounds; abdomen not distended Percussion/Palpation: abdomen soft; abdomen nontender, no guarding and abdomen not rigid Musculoskeletal: Head/Neck/Chest: normocephalic and head atraumatic Extremities: no cyanosis and no clubbing Skin: no rashes, warm and dry Neurologic: moves all extremities; no focal motor deficits Results & Data Vital Signs (Past 12 Hours) Vital Signs Temp Pulse Pulse Resp BP Pulse Ox 05/18/19 11:39 36.7 C 101 H 18 120/80 96 05/18/19 08:00 94 H 05/18/19 07:46 36.3 C L 97 H 17 113/75 99 05/18/19 07:19 102 H 18 97 05/18/19 04:15 36.4 C L 93 H 20 125/67 89 L 05/18/19 00:38 85 18 98 05/18/19 00:16 36.8 C 112 H 20 114/74 90 (1) Cardiomyopathy Cardiomyopathy type: other Qualified Code(s): I42.8 - Other cardiomyopathies
--- NOTE | 2019-05-18 16:48 | Hospitalist Progress Note ---
Date of Service May 18, 2019 Assessment & Plan (1) Acute decompensated heart failure: Presented with cough associated with shortness of breath CXR showed Small parenchymal infiltrate left base. Moderate stable cardiomegaly. BNP on admission 19K Echo from 04/13/19 showed left ventricular systolic function is severely reduced. Severe global hypokinesis of the left ventricle. There was a small circumferential pericardial effusion with a moderate amount of fluid loculated in the posteriorly. Ejection fraction between 25 to 30% Has been on iv lasix Start po lasix tomorrow (2) Cardiomyopathy: Has cardiomyopathy with EF of 25% Continue metoprolol, statin and aspirin Stable (3) Atrial fibrillation with rapid ventricular response: Present on admission with Afib RVR Currently rate controlled on metoprolol tartarate 25 q6h Will plan possible discharge on po Metoprolol XL 50mg bid Has not been on anticoagulation due to risk of falling and bleeding (4) CKD (chronic kidney disease): Creatinine stable Will monitor BMP closely while on lasix Avoid nephrotoxic agents (5) Abnormal urinalysis: Possible related to UTI UA positive for bacteria, Leukocytes and nitrite Urine cx grew multiple organisms (mostly contamination) Repeat Ucx is negative (after getting some doses of iv ceftriaxone) Ceftriaxone discontinued Discontinue mejía. RN notified (6) T2DM (type 2 diabetes mellitus): Diabetic diet SSI (7) Vascular dementia: No acute findings (8) GERD (gastroesophageal reflux disease): Continue PPI (9) HLD (hyperlipidemia): Continue statin (10) Failure to thrive in adult: Nutritional supplements added Diet changed to minced and moist CODE STATUS Full code for now Will follow up with daughter again tomorrow prior to discharge to ascertain decision regarding meeting with Palliative specialist DVT prophylaxis Subcut heparin Admission and Anticipated Discharge Date Admission Date: May 14, 2019 Subjective Patient seen and examined Has no new complaints today Still reports weakness and poor appetite Seen by certified master locksmith for malnutrition, boost trial recommended and diet to changed to mince and moist Spoke with daughter yesterday about goals of care Palliative also spoke to daughter today. She wants to discuss with her brother before deciding on code status. Physical Exam Constitutional: + ill appearing, + thin and + cachectic; no acute distress ENMT: external ear and nose normal, oropharynx normal Neck: trachea midline, no thyromegaly Respiratory: normal respiratory effort, lungs clear to auscultation Cardiovascular: Irregular rate and rhythm, S1 S2, no pedal edema, no JVD Gastrointestinal (Abdomen): normal bowel sounds, soft, nontender, no hepatosplenomegaly Neurologic: PERRL, EOMI, accommodation nl, no face palsy, no dysarthria Psychiatric: Orientation: alert Oriented only to person, moves all extremities Results & Data ([facility]) Vital Signs (Past 12 Hours) Vital Signs Temp Pulse Pulse Resp BP Pulse Ox 05/18/19 16:18 96 05/18/19 15:24 90 05/18/19 15:22 36.5 C 105 H 18 133/76 97 05/18/19 11:39 36.7 C 101 H 18 120/80 96 05/18/19 08:00 94 H 05/18/19 07:46 36.3 C L 97 H 17 113/75 99 05/18/19 07:19 102 H 18 97 Laboratory Results Abnormal lab results 05/17/19 05/18/19 05/18/19 Range/Units 20:27 07:04 07:04 RBC 3.60 L (4.2-5.4) M/uL Hgb 11.9 L (12.0-16.0) g/dL Hct 35.9 L (37-47) % RDW Std Deviation 53.5 H (36.4-46.3) fL MPV 11.9 H (7.4-10.4) fL Chloride 109 H (98-107) mmol/L BUN 21 H (7-18) mg/dl POC Glucose 104 H (70-99) mg/dl Calcium 10.3 H (8.5-10.1) mg/dl Prealbumin (20-40) mg/dl 05/18/19 05/18/19 Range/Units 07:04 11:25 RBC (4.2-5.4) M/uL Hgb (12.0-16.0) g/dL Hct (37-47) % RDW Std Deviation (36.4-46.3) fL MPV (7.4-10.4) fL Chloride (98-107) mmol/L BUN (7-18) mg/dl POC Glucose 110 H (70-99) mg/dl Calcium (8.5-10.1) mg/dl Prealbumin 13.9 L (20-40) mg/dl (1) Cardiomyopathy Cardiomyopathy type: other Qualified Code(s): I42.8 - Other cardiomyopathies
[2019-05-18] MEDS: clonazePAM 0.5 MG TAB PO SCH (20:52)
[2019-05-18] MEDS: PANTOprazole 40 MG TAB PO SCH (20:53)
[2019-05-18] MEDS: ATORVASTATIN 40 MG TAB PO SCH (20:54)
[2019-05-18] MEDS: SENNA 8.6 MG TAB PO SCH (20:54)
[2019-05-18] MEDS: CHOLECALCIFEROL 1,000 UNITS 25 MCG TAB PO SCH (20:55)
[2019-05-18] MEDS: ESCITALOPRAM OXALATE 10 MG TAB PO SCH (20:55)
[2019-05-19] MEDS: METOPROLOL TARTRATE 25 MG TAB PO SCH ×3 (04:15→15:57)
[2019-05-19 08:13] LABS: Hematocrit (blood only) 34.5 % (37-47); Hemoglobin 11.7 g/dL (12.0-16.0); Mean Corpuscular Hemoglobin 33.1 pg (25-34); Mean Corpuscular Hgb Conc 33.9 g/dL (32-36); Mean Corpuscular Volume 97.7 fL (80-100); Mean Platelet Volume 11.8 fL (7.4-10.4); Platelet Count 235 K/uL (130-400); RDW Coefficient of Variation 14.1 % (11.5-14.5); RDW Standard Deviation 50.4 fL (36.4-46.3); Red Blood Count 3.53 M/uL (4.2-5.4); White Blood Count 5.57 K/uL (4.8-10.8)
[2019-05-19] MEDS: INSULIN ASPART 100 UNITS/ML 3 ML PEN SC SCH ×2 (08:40→12:37)
[2019-05-19] MEDS: POTASSIUM CHLORIDE 20 MEQ TABCR PO SCH (08:41)
[2019-05-19] MEDS: AMLODIPINE BESYLATE 5 MG TAB PO SCH (08:41)
[2019-05-19] MEDS: FERROUS SULFATE 325 MG TAB PO SCH (08:41)
[2019-05-19] MEDS: DOCUSATE SODIUM 100 MG CAP PO SCH (08:41)
[2019-05-19] MEDS: ASPIRIN 81 MG ECTAB PO SCH (08:42)
[2019-05-19] MEDS: HEPARIN SOD 5,000 UNIT/0.5 ML VIAL SQ SCH (08:42)
[2019-05-19 08:43] LABS: BUN Creatinine Ratio 19.5 (10-20); Calcium 10.3 mg/dl (8.5-10.1); Creatinine Clr Calc Pharmacy 28.3 ml/min; Est GFR (African American) 53.9; Est GFR (Non-African American) 46.5; Magnesium 1.9 mg/dl (1.8-2.4); Potassium 3.6 mmol/L (3.5-5.1)
[2019-05-19] MEDS ORDERED: FUROSEMIDE 20 MG TAB PO SCH (09:00)
--- NOTE | 2019-05-19 12:12 | Discharge Summary ---
Date of Service May 19, 2019 Admission HPI Per Admitting Provider She is an 83-year-old female with significant past medical history of atrial fibrillation with cardiomyopathy with EF of 25%, CKD stage III, hypertension, chronic anemia, type 2 diabetes, GERD, history of CVA and vascular dementia was sent in from [facility] with complaints of cough and shortness of breath for the last few days. She was also sent in for cardiac assessment with a history of atrial fibrillation and RVR. She remains extremely lethargic and mild shortness of breath at rest but denies any chest pain and/or palpitation, any abdominal pain nausea and/or vomiting, any problem with her urine and her bowel habit, any numbness and/or tingling involving any of the extremities and she remains extremely weak and lethargic. In ER she was noted to have atrial fibrillation with a heart rate of 118 and increasing BNP without any significant CHF findings in chest x-ray. She was noted to have wheezing on examination. She was admitted to telemetry unit for continuation of care. Admission Exam Per Admitting Provider Physical Exam: Minimal shortness of breath at rest with wheezing Constitutional: + acute distress (Mild shortness of breath), + ill appearing and + thin Eyes: PERRL, conjunctivae normal, anicteric sclerae ENMT: external ear and nose normal, oropharynx normal Neck: trachea midline, no thyromegaly Respiratory: + respiratory distress (Minimal shortness of breath with wheezing) Auscultation: + diminished lung sounds, + crackles (At the bases) and + wheezes (Anteriorly) Cardiovascular: Rate/Rhythm: + tachycardic; + abnormal rate and + abnormal rhythm Heart Sounds: no murmur Extremities: + edema (Trace edema bilaterally) Gastrointestinal (Abdomen): Inspection/Auscultation: abdomen normal to inspection and normal bowel sounds; abdomen not distended Percussion/Palpation: abdomen soft; abdomen nontender Musculoskeletal: No acute arthritis in any joints Neurologic: moves all extremities; no focal motor deficits Generally very weak and lethargic Lymphatic: no cervical or axillary lymphadenopathy Principal Diagnosis Acute on chronic systolic heart failure Atrial fibrillation with rapid ventricular response Failure to thrive Severe calorie protein malnutrition Discharge Exam Constitutional + ill appearing (Chronically ill appearing), + cachectic and + frail appearing; no acute distress Eyes PERRL, conjunctivae normal, anicteric sclerae ENMT external ear and nose normal, oropharynx normal Respiratory normal respiratory effort, lungs clear to auscultation Cardiovascular Rate/Rhythm: + irregularly irregular Vessels: no JVD Extremities: no pedal edema Gastrointestinal (Abdomen) normal bowel sounds, soft, nontender, no hepatosplenomegaly Neurologic PERRL, EOMI, accommodation nl, no face palsy, no dysarthria Psychiatric Orientation: alert, oriented to person and cooperative; + not oriented to place and + not oriented to time Insight: + poor insight Discharge Data Allergies Allergy/AdvReac Type Severity Reaction Status Date / Time No Known Allergies Allergy . Verified 05/14/19 11:43 Consultations 05/14/19 12:55 ED Decision to Admit Stat 05/16/19 13:32 Consult Cardiology Routine 05/18/19 07:53 Consult Palliative Care Routine Hospital Course (1) Acute decompensated heart failure: Presented with cough associated with shortness of breath CXR showed Small parenchymal infiltrate left base. Moderate stable cardiomegaly. BNP on admission 19K Echo from 04/13/19 showed left ventricular systolic function is severely reduced. Severe global hypokinesis of the left ventricle. There was a small circumferential pericardial effusion with a moderate amount of fluid loculated in the posteriorly. Ejection fraction between 25 to 30% Was diuresed with iv lasix Discharge on po lasix 20mg daily (2) Cardiomyopathy: Has cardiomyopathy with EF of 25% Continue metoprolol XL, statin and aspirin Stable (3) Atrial fibrillation with rapid ventricular response: Present on admission with Afib RVR Adjustments made for better rate control Discharge on po Metoprolol XL 50mg bid (increased from previous dose of 25mg BID) Has not been on anticoagulation due to risk of falling and bleeding (4) CKD (chronic kidney disease): Creatinine stable Avoid nephrotoxic agents (5) Abnormal urinalysis: Possible related to UTI UA positive for bacteria, Leukocytes and nitrite Urine cx grew multiple organisms (mostly contamination) Repeat Ucx is negative (after getting some doses of iv ceftriaxone) Had already got 3 doses of antibiotic by the time all cultures finalized (6) T2DM (type 2 diabetes mellitus): Diabetic diet (7) Vascular dementia: No acute findings (8) GERD (gastroesophageal reflux disease): Continue PPI (9) HLD (hyperlipidemia): Continue statin (10) Severe malnutrition: (11) Failure to thrive in adult: Nutritional supplements added to diet Diet changed to minced and moist Patient needs support and encouragement with feeding CODE STATUS Full code for now Goals of care discussions were had with DaughterFabian and Palliative Specialist She and the brother decided to continue full code for now and see how she progresses Total Time Total Time Spent Total Time Spent (In Minutes): 35 Total Time Includes: Examination of the Patient, Discharge Planning, Medication Reconciliation and Communication With Other Providers Discharge Plan Discharge Items Patient Disposition: Trans Resident Long-Term Care Reason For Visit: COUGH, SOB Discharge Diagnosis: Acute on chronic systolic heart failure Atrial fibrillation with rapid ventricular response Failure to thrive Severe calorie protein malnutrition Condition on Discharge: Fair Activity: Resume your previous activity Non-emergency contact: Primary Care Provider Call non-emergency contact if: you have any medication questions and your symptoms worsen Follow-up/Referrals: Peyton [Primary Care Provider] - Diet: Regular Diet Texture: Easy to Chew Diet Comment: Minced and moist diet with nutritional supplement boost BID Addtl Attending Provider Instructions: Ms Lyles You were brought to the hospital for cough and shortness of breath. You were evaluated and found to be in heart failure exacerbation. You also had rapid heart rate from your Atrial fibrillation. You were managed with diuretics and adjustment of your medications with the help of the Piece Goods [employer]. You have been losing weight, have poor appetite and noted to be malnourished. Please take the dietary recommendations as in the dietary section. Please take your medications as prescribed. Please follow up with your Primary doctor. It was a pleasure taking care of you. Pending Studies at Discharge: No Stand-Alone Forms: [facility] Skilled Items Patient informed of condition?: Yes (Daughter also informed as patient is demented) DNR: No Discharge Level of Care: Other Communicable Disease: No Discharge Prognosis: Stable Lines: None Urinary Catheter: No Medications and DC Order Prescriptions: Continued aspirin 81 mg Tablet,Chewable 81 mg PO DAILY RF: 0 atorvastatin [Lipitor] 40 mg Tablet 40 mg PO HS RF: 0 calcitriol [Rocaltrol] 0.25 mcg Capsule 0.25 mcg PO MOWEFR RF: 0 docusate sodium [Colace] 100 mg Capsule 100 mg PO BID RF: 0 escitalopram oxalate [Lexapro] 10 mg Tablet 10 mg PO QPM RF: 0 omeprazole 20 mg Capsule,Delayed Release(Dr/Ec) 20 mg PO QPM RF: 0 potassium chloride [K-Tab] 20 mEq Tablet Extended Release 20 meq PO DAILY RF: 0 nitroglycerin [Nitrostat] 0.4 mg Tablet, Sublingual 0.4 mg Sublingual UD PRN (Reason: Chest Pain) RF: 0 acetaminophen [Tylenol] 325 mg Tablet 650 mg PO QID PRN (Reason: Pain) RF: 0 clonazepam 0.25 mg Tablet,Disintegrating 0.25 mg PO HS RF: 0 sennosides [senna] 8.6 mg Tablet 8.6 mg PO HS RF: 0 ferrous sulfate [Iron (ferrous sulfate)] 325 mg (65 mg iron) Tablet 325 mg PO BID RF: 0 cholecalciferol (vitamin D3) [Vitamin D3] 2,000 unit Tablet 2,000 unit PO QPM RF: 0 amlodipine 5 mg Tablet 5 mg PO DAILY RF: 0 Changed furosemide [Lasix] 20 mg tablet 20 mg PO DAILY 30 Days Qty: 30 RF: 0 metoprolol succinate 25 mg Tablet Extended Release 24 Hr 50 mg PO BID 30 Days Qty: 60 RF: 0 Discharge Orders: Discharge Order (Routine); Ordered 05/19/19 Ordered By: Bree Noonan Admission Data Admit Date/Time: 05/14/19 13:49 Attending Provider: Bree Noonan I. Admit Provider: Alphonso Gao Primary Care Provider: Caesar Todd Providers: Alphonso Gao ; Gale Stubbs ; Suleiman Rogers ; Debbie Walters Other Interventions: Discharge Summary Assessment (RN) Last Done: 05/19/19 12:42 DC Date/Time DO NOT enter until pt leaves facility: 05/19/19 17:15
== END 2019-05-19 17:15 | disposition home or self-care (01) | DRG 291 ==
LOC: ED 11:11 → 2S 13:49 → SUATTDRO 13:49 → 2S 14:41